=== PATIENT | female | born 1980 | race Two or more races ===

== ENCOUNTER 2025-05-16 23:43 | Day surgery (SDC) | payer BC, SELFPAY ==
[2025-05-16 23:44] VITALS: BMI 36.8
[2025-05-17] VITALS (15 sets, daily range): BP systolic 124–155; BP diastolic 70–97; PULSE 66–96; RESP 16–20; TEMP 36.2–36.8; O2SAT 94–100
--- NOTE | 2025-05-17 00:34 | XR_ITS ---
Examination: Abdomen sonogram, Limited Date and time of exam: May 17, 2025, 0048 hours INDICATIONS: Right upper abdominal pain and vomiting beginning 4 hours ago Technique: Real-time nguyen scale transabdominal sonographic images of the upper abdomen obtained. Findings: Cholelithiasis Gallbladder wall 0.40 cm Common bile duct 0.4 cm Pancreas obscured by bowel gas There are 17.6 cm no focal liver lesions. Normal hepatopedal portal venous flow Patent IVC IMPRESSION: Cholelithiasis Gallbladder wall is thickened, consider HIDA scan or MRCP follow-up to exclude cholecystitis
[2025-05-17 00:53] LABS: Basophils # (Auto) 0.1 Thou/mm3 (0.0-0.2); Basophils % (Auto) 0 % (0-2.5); Eosinophils # (Auto) 0.1 Thou/mm3 (0.0-0.5); Eosinophils % (Auto) 1 % (0-10); Hematocrit 36.8 % (36.0-46.0); Hemoglobin 13.0 g/dL (12.0-16.0); Immature Granulocytes Auto 0.07 Thou/mm3 (0.00-0.00); Lymphocytes # (Auto) 2.2 Thou/mm3 (1.0-4.8); Lymphocytes % (Auto) 16 % (10-50); Mean Corpuscular HGB Conc 35.3 g/dl (31.0-37.0); Mean Corpuscular Hemoglobin 30.8 pg (25.0-35.0); Mean Corpuscular Volume 87 fL (80-100); Monocytes # (Auto) 1.3 Thou/mm3 (0.0-0.8); Monocytes % (Auto) 9 % (0-12); Neutrophils # (Auto) 10.6 Thou/mm3 (1.8-7.7); Neutrophils % (Auto) 74 % (37-80); Nucleated Red Blood Cell # 0.00 Thou/mm3 (0.00-0.00); Nucleated Red Blood Cell % 0 /100 WBC (0); Platelet Count 299 Thou/mm3 (140-440); RDW Standard Deviation 43.3 fL (36.4-46.3); Red Blood Count 4.22 Miln/mm3 (4.00-5.20); White Blood Count 14.4 Thou/mm3 (3.6-11.0)
--- NOTE | 2025-05-17 00:54 | EDNOTE_ITS ---
<Statement entered by Elis Duncan MD - 05/21/25 17:34> As co-signing physician, I was present and available for consult prn. I concur with the plan and care as documented by the midlevel provider. ED Abdominal Pain RME/HPI General Chief Complaint: Abdominal Pain Stated complaint: RUQ PAIN Time seen by provider: 05/17/25 00:33 Arrival date/time: 05/16/25 23:43 44F with history of appendectomy presents to ED with several hours of RUQ pain and N/V. Limitations: no limitations Related Data Home Medications ?Medication ?Instructions ?Recorded ?Confirmed ranitidine HCl 75 mg tablet 100 mg PO PRN PRN GERD #0 tabs 04/10/15 (Zantac) Previous Rx's ?Medication ?Instructions ?Recorded Hydrocodone/Acetaminophen * (NORCO 1 tab PO Q6H PRN AB DOMINAL PAIN 04/14/15 7.5/325 *) #40 tabs hydrocodone 5 mg-acetaminophen 325 1 tab PO Q6H #20 ta bs 05/17/25 mg tablet Allergies Allergy/AdvReac Type Severity Reaction Status Date / Time NKA Allergy Unknown Uncoded 05/16/25 23:50 Review of Systems Review of Systems Systems Reviewed: All systems reviewed, normal except as documented Constitutional Constitutional: Reports system reviewed and no additional complaints, except as documented, Denies fever(s) and Denies headache(s) ENT Ears, Nose, Mouth, and Throat: Denies disequilibrium and Denies headache(s) Cardiovascular Cardiovascular: Reports system reviewed and no additional complaints, except as documented, Denies chest pain and Denies dyspnea Respiratory Respiratory: Reports system reviewed and no additional complaints, except as documented, Denies cough and Denies dyspnea Gastrointestinal Gastrointestinal: Reports system reviewed and no additional complaints, except as documented, Reports as per HPI, Reports abdominal pain, Reports nausea and Reports vomiting Neurologic Neurologic: Reports system reviewed and no additional complaints, except as documented, Denies confusion, Denies disequilibrium and Denies headache(s) Psychiatric Psychiatric: Denies confusion Past Medical History Social History SMOKING STATUS: Never smoker ED Exam General Limitations: Present no limitations General appearance: Present alert and in no apparent distress Head Head exam: Present atraumatic Eye Eye exam: Present normal appearance, PERRL and EOMI ENT ENT exam: Present normal exam, normal oropharynx and mucous membranes moist Neck Neck exam: Present normal inspection, full ROM and trachea midline Chest Chest inspection: Present normal inspection and symmetric chest wall rise Respiratory Respiratory exam: Present normal lung sounds bilaterally Cardiovascular Cardiovascular exam: Present regular rate, normal rhythm and normal heart sounds Abdominal Exam Abdominal exam: Present soft and normal bowel sounds Abdominal tenderness: Present RUQ Extremities Exam Extremities exam: Present normal inspection and full ROM Back Exam Back exam: Present normal inspection and full ROM Neurological Exam Neurological exam: Present alert, oriented X3 and CN II-XII intact Psychiatric Psychiatric exam: Present normal affect and normal mood Skin Skin exam: Present warm, dry, intact and normal color Course Quality Measures none Orders Category Date Time Status Patient Condition Routine Admission 05/17/25 07:[address] in Observation Status Routine Admission 05/17/25 07:[address] in Surgical Day Care Routine Admission 05/17/25 07:07 Active Activity as Tolerated Routine Care 05/17/25 07:07 Ordered COVID-19 Screening Questionnaire NOW Care 05/17/25 02:38 Completed DC Home When Criteria Met . Care 05/17/25 10:03 Completed Decision to Admit X1 Care 05/17/25 02:37 Completed Insert IV NOW Care 05/17/25 01:13 Completed NPO NOW Care 05/17/25 02:07 Completed Obtain Written Consent For: NOW Care 05/17/25 07:07 Completed Consult to General Surgery Stat Cons 05/17/25 02:37 Ordered Diet NPO (NOW) Diet 05/17/25 02:07 Active Discharge Routine Discharge 05/17/25 11:39 Active US gall bladder Stat Exams 05/17/25 00:34 Completed CBC Stat Lab 05/17/25 00:46 Completed CMP [Comprehensive Metabolic Panel] Stat Lab 05/17/25 00:46 Completed Drug Screen,Urine Stat Lab 05/17/25 01:00 Completed HCG Qualitative,Urine Stat Lab 05/17/25 01:00 Completed Lipase Stat Lab 05/17/25 00:46 Completed Urinalysis, C/S if Indicated Stat Lab 05/17/25 01:00 Completed Acetaminophen Ivpb [Ofirmev Inj] 100 ml Med 05/17/25 10:08 Discontinued IV .STK-MED Bupivacaine Mpf/Epi 0.5% [Sensorcaine-Mpf Inj 0.5% w/ Med 05/17/25 10:02 Discontinued Epi] 30 ml .ROUTE .STK-MED ONE Dexamethasone Inj [Decadron Inj] Med 05/17/25 10:00 Discontinued 10 mg .ROUTE .STK-MED ONE HYDROcodone*/APAP 5/325 [[place] 5/325] Med 05/17/25 00:34 Discontinued 1 tab PO X1 ONE HYDROmorphone INJ [Dilaudid Inj] Med 05/17/25 10:03 Discontinued 0.4 mg IVP Q5M PRN Ketorolac Inj [Toradol Inj] Med 05/17/25 10:00 Discontinued 30 mg .ROUTE .STK-MED ONE Midazolam Inj [Versed Inj] Med 05/17/25 10:00 Discontinued 2 mg .ROUTE .STK-MED ONE Morphine Inj Med 05/17/25 10:03 Discontinued 3 mg IVP Q5M PRN Morphine Inj Med 05/17/25 02:07 Discontinued 5 mg IVP X1 ONE Ondansetron Inj [Zofran Inj] Med 05/17/25 10:00 Discontinued 4 mg .ROUTE .STK-MED ONE Ondansetron Inj [Zofran Inj] Med 05/17/25 02:07 Discontinued 4 mg IVP X1 ONE Ondansetron Inj [Zofran Inj] Med 05/17/25 10:03 Discontinued 4 mg IVP X1 ONE Piper/Tazo 3.375 gm Premix [Zosyn] Med 05/17/25 02:37 Discontinued 3.375 gm in 50 ml IV X1 Propofol Inj [Diprivan Inj] Med 05/17/25 09:59 Discontinued 200 mg IV .STK-MED ONE Rocuronium Inj [Zemuron Inj] Med 05/17/25 10:55 Discontinued 100 mg .ROUTE .STK-MED ONE Sevoflurane [Ultane] Med 05/17/25 10:21 Discontinued 15 min INH .STK-MED ONE Sodium Chloride 0.9% 1000 ml [Ns] 1,000 ml Med 05/17/25 07:15 Discontinued IV 100 mls/hr Sodium Chloride 0.9% 1000 ml [Ns] 1,000 ml Med 05/17/25 01:14 Discontinued IV 250 mls/hr Sugammadex Inj [Bridion Inj] Med 05/17/25 10:00 Discontinued 200 mg .ROUTE .STK-MED ONE fentaNYL INJ [Sublimaze Inj] Med 05/17/25 10:00 Discontinued 100 mcg .ROUTE .STK-MED ONE fentaNYL INJ [Sublimaze Inj] Med 05/17/25 10:03 Discontinued 25 mcg IVP Q5M PRN Code Status Routine Oth 05/17/25 07:07 Completed Oxygen Delivery PRN RT 05/17/25 10:03 Completed Vital Signs Vital signs: Vital Signs Temperature 98.2 F 05/17/25 00:06 Pulse Rate 90 05/17/25 00:06 Respiratory Rate 20 05/17/25 00:06 Blood Pressure 144/92 H 05/17/25 00:06 Pulse Oximetry (%) 98 05/17/25 00:06 Oxygen Delivery Method Room Air 05/17/25 00:06 O2 at 98% on RA and WNLs Abdominal Pain MDM MDM Narrative MDM Narrative:: 44F with history of appendectomy presents to ED with several hours of RUQ pain and N/V. Physical exam reveals RUQ tenderness. Patient is afebrile, alert, but appears to be in pain. US likely cholecystitits given wall edema, gallstones, and GB distention. LFTs mildly elevated. Moderate leukocytosis. Marijuana+. Spoke to Dr. Wood who will evaluate patient in AM. Patient eventually admitted for surgery and discharged same day. Patient data External records reviewed:: None Clinical information provided by:: patient Social determinants that could affect healthcare access:: none Patient has the following chronic illnesses:: none How is presenting disease/condition affected by chronic disease/condition?: no chronic disease Evaluation data The following diagnostics were reviewed and interpreted by me:: lab results and radiology exam(s) Lab and/or radiology exams considered but not ordered:: ordered Interpretation Summary: above Medications / Prescriptions Medications or Prescriptions considered but not ordered:: ordered Medication administrations:: Medication Administration History Discontinued Medications Hydrocodone Bitart/Acetaminophen (Hydrocodone/Apap 5/325 Tablet) 1 tab PO X1 ONE Stop: 05/17/25 00:35 Last Admin: 05/17/25 01:00 Dose: 1 tab Documented By: EE Bupivacaine HCl/Epinephrine Bitart (Bupivacaine Mpf/Epi 0.5% 30 Ml Vial 1:200,000) Confirm Administered Dose 30 ml .ROUTE .STK-MED ONE Stop: 05/17/25 10:03 Dexamethasone Sodium Phosphate (Dexamethasone Sod Phos Inj 10 Mg/Ml Vial) Confirm Administered Dose 10 mg .ROUTE .STK-MED ONE Stop: 05/17/25 10:01 Fentanyl Citrate (Fentanyl Cit Inj 50 Mcg/Ml Amp 2ml) 25 mcg IVP Q5M PRN PRN Reason: PAIN SCALE 1-3 (mild Stop: 05/17/25 12:03 Fentanyl Citrate (Fentanyl Cit Inj 50 Mcg/Ml Amp 2ml) Confirm Administered Dose 100 mcg .ROUTE .STK-MED ONE Stop: 05/17/25 10:01 Hydromorphone HCl (Hydromorphone Inj 2 Mg/Ml Vial) 0.4 mg IVP Q5M PRN PRN Reason: PAIN SCALE 7-10 (Severe Stop: 05/17/25 12:03 Last Admin: 05/17/25 12:13 Dose: 0.4 mg Documented By: DI Sodium Chloride (Ns) 1,000 mls @ 250 mls/hr IV .Q4H ONE Stop: 05/17/25 05:13 Last Infusion: 05/17/25 07:00 Dose: Infused Documented By: Admin: 05/17/25 02:16 Dose: 250 mls/hr Documented By: JESS Piperacillin/Tazobactam/Dextrose (Zosyn) 3.375 gm in 50 mls @ 100 mls/hr IV X1 ONE Stop: 05/17/25 03:06 Last Infusion: 05/17/25 04:18 Dose: Infused Documented By: Admin: 05/17/25 03:35 Dose: 100 mls/hr Documented By: CB Sodium Chloride (Ns) 1,000 mls @ 100 mls/hr IV .Q10H VICTOR HUGO Stop: 06/16/25 07:14 Last Admin: 05/17/25 07:55 Dose: 100 mls/hr Documented By: LACIE Acetaminophen (Ofirmev Inj) Confirm Administered Dose 100 mls @ ud IV .STK-MED ONE Stop: 05/17/25 10:09 Ketorolac Tromethamine (Ketorolac Inj 30 Mg/Ml Vial) Confirm Administered Dose 30 mg .ROUTE .STK-MED ONE Stop: 05/17/25 10:01 Midazolam HCl (Midazolam Inj 1 Mg/Ml Vial 2 Ml) Confirm Administered Dose 2 mg .ROUTE .STK-MED ONE Stop: 05/17/25 10:01 Morphine Sulfate (Morphine Sulf Inj 10 Mg/Ml Vial) 5 mg IVP X1 ONE Stop: 05/17/25 02:08 Last Admin: 05/17/25 02:16 Dose: 5 mg Documented By: EE Morphine Sulfate (Morphine Sulf Inj 10 Mg/Ml Vial) 3 mg IVP Q5M PRN PRN Reason: PAIN SCALE 4-6 (Moderate Stop: 05/17/25 12:03 Ondansetron HCl (Ondansetron Inj 2 Mg/Ml Inj 2 Ml) 4 mg IVP X1 ONE; Protocol Stop: 05/17/25 02:08 Last Admin: 05/17/25 02:16 Dose: 4 mg Documented By: EE Ondansetron HCl (Ondansetron Inj 2 Mg/Ml Inj 2 Ml) 4 mg IVP X1 ONE Stop: 05/17/25 10:04 Ondansetron HCl (Ondansetron Inj 2 Mg/Ml Inj 2 Ml) Confirm Administered Dose 4 mg .ROUTE .STK-MED ONE Stop: 05/17/25 10:01 Propofol (Propofol Inj 10 Mg/Ml Vial 20 Ml) Confirm Administered Dose 200 mg IV .STK-MED ONE Stop: 05/17/25 10:00 Rocuronium [place] (Rocuronium Inj 10 Mg/Ml Vial 10 Ml) Confirm Administered Dose 100 mg .ROUTE .STK-MED ONE Stop: 05/17/25 10:56 Sevoflurane (Sevoflurane 15 Min/Unit Ea) Confirm Administered Dose 15 min INH .STK-MED ONE Stop: 05/17/25 10:22 Sugammadex Sodium (Sugammadex Inj 100 Mg/Ml 2ml Vial) Confirm Administered Dose 200 mg .ROUTE .STK-MED ONE Stop: 05/17/25 10:01 above Consultations Consultation(s) initiated? (list below): Yes Diagnosis Differential diagnosis abdominal pain: abdominal pain, acute appendicitis, calculus of kidney, constipation, diverticulitis, endometriosis, gastroenteritis, pancreatitis, small bowel obstruction and other (biliary disease, cholecystitis) Most likely diagnosis given after review of the tests above:: cholecystitis Admission Indicated Admission indicated?: indicated Admission Request Was there a request for admission?: Yes Admission Attestation Admission request attestation: Discussed case with [Dr. Wood] from General Surgery service regarding admission. Discussed patients ED course, exam findings, labs, and radiology results. The Surgeon [agrees] to accept the patient for admission. Disposition Plan Disposition Plan: Admit Discharge Plan Plan Patient Disposition: Other Care w/in Hosp ([facility]) Problem List Clinical Impression: Acute cholecystitis
[2025-05-17] MEDS: HYDROcodone/APAP 5/325 TABLET 1 TAB PO (01:00)
[2025-05-17 01:01] LABS: Collection Type, Urine Clean Catch
[2025-05-17 01:07] LABS: Amorphous Crystals,Urine Present (Absent); Bacteria,Urine Rare; Bilirubin,Urine Negative (Negative); Blood,Urine Trace (Negative); Clarity,Urine Turbid (Clear/Hazy); Color,Urine Yellow (Lt Yel-Yel); Culture Indicated,Urine Not Indicated; Glucose, Urine Negative (Negative); Ketones,Urine 1+ (Negative); Leukocyte Esterase,Urine Negative (Negative); Nitrite,Urine Negative (Negative); PH,Urine 8.5 (5.0-7.0); Protein,Urine Negative (Neg - Trace); RBC,Urine 9 /hpf (0-3); Specific Gravity,Urine 1.022 (1.001-1.035); Squamous Epithelial Cell,Urine 12 /hpf (0-5); Urobilinogen,Urine Negative mg/dL (0.0-1.0); WBC,Urine 1 /hpf (0-5)
[2025-05-17 01:08] LABS: HCG Qualitative,Urine Negative
[2025-05-17 01:12] LABS: Alanine Aminotransferase 86 U/L (10-49); Albumin, Serum 4.4 gm/dL (3.5-5.0); Albumin/Globulin Ratio 1.6 (1.2-2.2); Alkaline Phosphatase 77 U/L (46-116); Anion Gap 10 (7-16); Aspartate Amino Transferase 101 U/L (0-34); BUN/Creatinine Ratio 12 Ratio (12-20); Bilirubin,Total 0.6 mg/dL (0.3-1.2); Blood Urea Nitrogen 11 mg/dL (9-23); Calcium 9.4 mg/dL (8.3-10.6); Calcium (Corrected) 9.4 mg/dL (8.5-10.1); Carbon Dioxide 26.3 mMol/L (20.0-31.0); Chloride 107 mMol/L (98-107); Creatinine (Component) 0.9 mg/dL (0.6-1.3); Estimated Creatinine Clearance 80.7 mL/min (>60); Globulin 2.7 gm/dL (2.3-3.5); Glucose 147 mg/dL (74-106); Lipase 47 U/L (12-53); Osmolality,Calculated 287 (275-295); Potassium 4.4 mMol/L (3.4-5.1); Sodium 143 mMol/L (136-145); Total Protein 7.1 gm/dL (5.7-8.2); eGFR > 60 See Note
[2025-05-17 01:13] LABS: Amphetamine/Methamp Scrn,U Negative (Negative); Barbiturate Screen,Urine Negative (Negative); Benzodiazepines Screen,Urine Negative (Negative); Benzoylecgonine Screen, Ur Negative (Negative); Fentanyl Screen,Urine Negative (Negative); Opiate Screen,Urine Negative (Negative); THC Screen,Urine Positive (Negative)
[2025-05-17] MEDS: MORPHINE SULF INJ 10 MG/ML VIAL 5 MG IVP (02:16)
[2025-05-17] MEDS: SODIUM CHLORIDE 0.9% 1000 ML 1,000 ML 250 ML IV (02:16)
[2025-05-17] MEDS: ONDANSETRON INJ 2 MG/ML INJ 2 ML 4 MG IVP (02:16)
--- NOTE | 2025-05-17 02:32 | PRELIM_ITS ---
Gallbladder ultrasound. May 17, 2025 at 0048 hours Clinical history: Right upper quadrant pain x4 hours. Comparison: No prior study is available for comparison. Findings: The liver is enlarged measuring 17.6 cm and is normal in echogenicity without mass or ductal dilatation. The main portal vein is patent and demonstrates hepatopetal flow. The gallbladder is distended, measuring 12 cm. Echogenic foci are seen in the gallbladder. The gallbladder wall is thickened, measuring 4 mm. No pericholecystic fluid is demonstrated. The common duct is normal in caliber at 4 mm. The pancreas is obscured by bowel gas. The inferior vena cava is patent. Impression: 1. Distended gallbladder with cholelithiasis and gallbladder wall thickening, suggestive of acute calculous cholecystitis. Recommend clinical correlation. 2. No biliary obstruction. 3. Hepatomegaly. Report Electronically Signed By: Rubens Escobar 05/17/2025 2:31:38 AM [EST]
[2025-05-17] MEDS: PIPER/TAZO 3.375 GM PREMIX 3.375 GM/50 ML BAG IV (03:35)
--- NOTE | 2025-05-17 07:12 | ESHP_ITS ---
HPI Date of Admission 05/17/2025 Chief Complaint Chief Complaint: Patient is admitted with complaints of acute cholecystitis with cholelithiasis HPI History of present illness revealed that the patient developed severe pain in the middle of the night and came to the emergency room. Pain was located in the upper quadrant of the abdomen and going on to the right side. Patient had no vomiting. She had a similar episode 3 weeks ago when she was on a cruise in [place] when she got sick associated with vomiting and upper abdominal pain she is describing this pain is the same. Patient denies having had any gallstones until last night. She had a grilled seed sandwich at work and got sick around 930. He came to the emergency room and was found to have acute cholecystitis. Her past surgery consisted of appendectomy Review of Systems Constitutional Constitutional: Denies headache(s) ENT Ears, Nose, Mouth, and Throat: Denies disequilibrium and Denies headache(s) Neurologic Neurologic: Reports system reviewed and no additional complaints, except as documented, Denies confusion, Denies disequilibrium and Denies headache(s) Psychiatric Psychiatric: Denies confusion Meds Home Medications and Allergies Home Medications ?Medication ?Instructions ?Recorded ?Confirmed ?Type ranitidine HCl 75 mg tablet 100 mg PO PRN PRN GERD #0 tabs 04/10/15 History (Zantac) Allergies Allergy/AdvReac Type Severity Reaction Status Date / Time NKA Allergy Unknown Uncoded 05/16/25 23:50 Exam Vital Signs Temp Pulse Resp BP Pulse Ox O2 Del Method 98.2 F 85 19 127/74 94 L Room Air 05/17/25 05:00 05/17/25 05:00 05/17/25 05:00 05/17/25 05:00 05/17/25 05:00 05/17/25 05:00 Narrative Exam Physical examination revealed slightly obese female who is 5 foot 1 inch tall weighing 195 pounds with BMI of 36.8 Constitutional Constitutional: moderate distress Routine Abdominal Exam Comments: Examination abdomen showed definite tenderness over the right upper quadrant with a positive Rubio sign Routine Rectal Exam Comments: Deferred Routine Exam Comments: Deferred Routine Extremities Exam Comments: Within normal limits Results Results: Laboratory Laboratory Narrative: Laboratory results show leukocytosis of 14,000. Liver enzymes show mild elevation bilirubin is within normal limits Results: Imaging Imaging narrative: Ultrasound of the abdomen showed cholelithiasis with cholecystitis Assessment & Plan Additional Assessment Additional comments: Impression: Acute cholecystitis with cholelithiasis Obesity Plan Plan: Since the patient has had 2 episodes of pain in the past 3 weeks I think she is passing a stone to the common bile duct even though the liver enzymes are not that elevated. It is prudent to go and get the gallbladder now because she has a leukocytosis and has persistent pain despite morphine. I have therefore scheduled her for laparoscopic cholecystectomy. I also told her that she will require open cholecystectomy in case the laparoscopic approach fails she is agreeable. I told her the biggest risk of lap shemar is injury to the common bile duct which may require further surgery by open method in a different hospital. Quality Measures Quality Measures none
--- NOTE | 2025-05-17 07:22 | PC.NURSE ---
Received report from ANUJ Anne on this patient. Dr. Will at bedside explained need for cholecystectomy surgery today. No further questions from patient. Consent obtained. Plan of care ongoing. Vitals stable. Patient denies abdominal pain or nausea at this time
[2025-05-17] MEDS: SODIUM CHLORIDE 0.9% 1000 ML 1,000 ML 100 ML IV (07:55)
--- NOTE | 2025-05-17 07:57 | PC.CC ---
Patient is a 44 year-old female who presents to the hospital for acute cholecystitis. Isabel WASHINGTON made [id number] contact with patient. ASW introduced self, role, and reason for visit.?Patient appeared alert and oriented to self, location, and situation.?Patient was pleasant and engaged in initial assessment. Patient confirmed information on demographics and reports to living at home with her 14 year-old son. Patient reports her medical decision maker in the event she is unable to make her own medical decisions would be her mother, Hawa Rosenthal . 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. Patient is able to ambulate independently and complete her own ADLs. The patient does not require any DME and reports no medical concerns. Patient's primary provider is Aaron Krishna and pharmacy of choice is [facility]. Upon discharge patient plans to return back home. director dental services to follow up with any discharge needs.
--- NOTE | 2025-05-17 08:44 | PC.NURSE ---
Report given to ANUJ Cueva in surgery. No further questions.
--- NOTE | 2025-05-17 11:26 | SUR.PHASEI ---
pt received from OR in recovery bay 4. pt asleep but responds to voice, breathing unlabored on oxymask 6l. v/s stable. pt dressing to abd x4 cdi. report received from Dr. Domingo and Pooja LESLIE.
[2025-05-17] MEDS: HYDROmorphone INJ 2 MG/ML VIAL 0.4 MG IVP (12:13)
--- NOTE | 2025-05-17 12:23 | SUR.PHASEII ---
[place] eyes closed, breathing unlabored, dressing to abdomen clean, dry, and intact, report from Yasmany LESLIE
--- NOTE | 2025-05-17 12:40 | SUR.PHASEII ---
pt tolerating oral fluids without difficulty swallowing or n/v
--- NOTE | 2025-05-17 12:57 | SUR.PHASEII ---
report to Yasmany LESLIE
--- NOTE | 2025-05-17 12:57 | SUR.PHASEII ---
pt able to dress self and ambulate to wheelchair with steady gait
--- NOTE | 2025-05-17 13:05 | SUR.PHASEII ---
pt awake and alert, breathing unlabored on room air. v/s stable. pt dressing to abd x4 cdi. pt able to ambulate to wheelchair with steady gait. d/c instructions given with mother in room, all questions answered. pt d/c via wheelchair with all belongings.
--- NOTE | 2025-06-08 15:57 | ESOP_ITS ---
Date of Procedure 05/17/25 Pre Op Diagnosis Acute cholecystitis with cholelithiasis Post Op Diagnosis Same Procedure Laparoscopic cholecystectomy Findings Patient was found to have an inflammation of the gallbladder which was shown 7 swelling and edema around the gallbladder Procedure Description After endotracheal anesthesia was given the patient was placed in supine position and the abdomen was prepped with chloroprep solution and draped in a sterile manner. After time out was performed I injected a few cc of of half percent Marcaine with epinephrine below the umbilicus and I made an incision for about 3 cm in length. The fascia was cleaned and Veress needle was inserted to create a pneumoperitoneum up to 15 mmHg. Then introduced a 12 mm trocar and a 10 mm camera through the fascia and I inspected the intra-abdominal organs as well as the gallbladder and the liver. Another 5 mm trocar was inserted in the epigastric region under direct vision after injecting some local anesthesia. The gallbladder was found to be distended and slightly inflamed and is associated with edema of the gallbladder wall due to acute cholecystitis. At this time the patient was kept in reverse Trendelenburg position with the left lateral tilt. The third 5 mm trocar was inserted over the mid axillary line under direct vision and a Jose Cruz and Sangeetha grasper was used to hold the fundus of the gallbladder. The retraction was carried out by the real estate administrative assistant moving the fundus of the gallbladder towards the right shoulder of the patient to create enough traction. I placed a another 5 mm trocar in the midaxillary line just lateral to the rectus muscle under direct vision. I used a fenestrated grasper to retract the neck of the gallbladder laterally towards the patient's right hip. The Calot's triangle was exposed and I achieved the critical view of safety as follows: I dissected out the fatty tissue from the hepatocystic triangle and cleared this area. I also dissected inferior and posterior to the gallbladder to identify the cystic duct and the gallbladder wall. Then superiorly I dissected along the cystic plate up to lower one third third of the gallbladder to lift the gallbladder from the liver. At this time I confirmed that only 2 structures entering the gallbladder were cystic artery and the cystic duct. The common duct was seen distally but no dissection was carried out around the duct. I did not see any need for operative cholangiogram in this patient. The cystic duct was clipped doubly and then divided and cystic artery was similarly dealt with. Then the gallbladder was removed from the liver bed using Harmonic jaren to control the small blood vessels as the dissection proceeded. Then the gallbladder was from the liver bed completely and delivered through the umbilical port using an Endopouch. The liver bed was coagulated with cautery to obtain satisfactory hemostasis. The trocars were p ulled out from the abdominal cavity and the fascia at the umbilical incision was closed with interrupted 0 Ethibond. Subcutaneous tissues was closed with 3-0 chromic and injected a few cc of half percent Marcaine with epinephrine and the skin was closed with interrupted 4-0 nylon stitches at all the trocar sites. Dressing was applied with 2 x 2 and Tegaderm. Patient tolerated the procedure well and returned to recovery room in stable condition. This operative report was missed somehow at the time of the surgery and therefore redictated on 06/08/2025. The accuracy of the operative report may not be very correct due to the delay. Anesthesia GETA Pathology / specimen Other (The gallbladder and the stone) Estimated Blood Loss 50 Surgeon Aren Wood MD Surgical Staff Operation Date: 05/17/25 10:00 Case Staff Anesthesiologist: Rakesh Domingo RN First Assistant: Rosy Melvin
== END 2025-05-17 13:05 | disposition home or self-care (01) ==
LOC: SERX 05-17 05:54 → S2EX 05-17 07:20
PROVIDERS: Physician Assistant; Emergency Provider Emergency Medicine; PCP Internal Medicine; Referring Provider Surgery; Visit Provider Surgery
PROC: 0FT44ZZ Resection of Gallbladder, Percutaneous Endoscopic Approach (ICD-10-PCS; CPT 47562; principal; 2025-05-17 09:45)
DX: K80.12 Calculus of gallbladder with acute and chronic cholecystitis without obstruction (principal); Z68.36 Body mass index [BMI] 36.0-36.9, adult; E66.9 Obesity, unspecified
CPT/HCPCS: 47562; 36415; 76705; 80053; 80307; 81001; 81025; 83690; 85025; 96361; 96365; 96375; 99284; A4217; A4649; J0131; J1100; J1171; J1885; J2250; J2270; J2405; J2543; J2704; J3010; J3490; J7030; A9270

== ENCOUNTER 2025-05-17 21:08 | Inpatient (IN) | payer BC, SELFPAY ==
[2025-05-17 21:09] VITALS: BMI 37.0
[2025-05-17 21:48] VITALS: BP 145/93; PULSE 71; RESP 26; TEMP 36.4; O2SAT 100
[2025-05-17 22:14] VITALS: BP 145/93; PULSE 77; RESP 20; TEMP 36.7; O2SAT 100
[2025-05-17] MEDS: ONDANSETRON INJ 2 MG/ML INJ 2 ML 4 MG IV (22:15)
[2025-05-17] MEDS: DEXAMETHASONE SOD PHOS INJ 10 MG/ML VIAL IVP (22:15)
[2025-05-17] MEDS: MORPHINE SULF INJ 10 MG/ML VIAL 5 MG IVP (22:16)
--- NOTE | 2025-05-17 23:19 | XR_ITS ---
Examination: CT abdomen with intravenous contrast CT pelvis with intravenous contrast 2-D coronal reconstructions 2-D sagittal reconstructions Date and time of exam:May 17, 2025 at 1145 hours Comparison March 25, 2015 INDICATIONS: Abdominal pain and epigastric pain today. CTDI: vol (mGy) 10.8 DLP: (mGycm) 589 Technique: Multiple axial sections of the abdomen and pelvis have been obtained. 64 slice high-resolution scanner used. 3 mm axial sections have been obtained, post intravenous injection 60 cc [id number] 2-D sagittal, coronal reconstructions obtained. Low dose protocols were performed. One or more of the following dose reduction techniques were used; automated exposure control, adjustment of the mA and/or KV according to patient size, use of iterative reconstruction technique. Findings: No focal liver lesions Absent gallbladder Acute pancreatitis edema surrounding the pancreas No renal or ureteral calculi, no hydronephrosis No pericecal inflammatory change Anteverted uterus Intact urinary bladder The osseous structures are intact IMPRESSION: Acute pancreatitis, no pseudocyst
[2025-05-17 23:25] VITALS: BP 143/83; PULSE 84; RESP 20; TEMP 36.9; O2SAT 99
[2025-05-17 23:32] LABS: Basophils # (Auto) 0.0 Thou/mm3 (0.0-0.2); Basophils % (Auto) 0 % (0-2.5); Eosinophils # (Auto) 0.0 Thou/mm3 (0.0-0.5); Eosinophils % (Auto) 0 % (0-10); Hematocrit 38.8 % (36.0-46.0); Hemoglobin 13.2 g/dL (12.0-16.0); Immature Granulocytes Auto 0.09 Thou/mm3 (0.00-0.00); Lymphocytes # (Auto) 0.7 Thou/mm3 (1.0-4.8); Lymphocytes % (Auto) 4 % (10-50); Mean Corpuscular HGB Conc 34.0 g/dl (31.0-37.0); Mean Corpuscular Hemoglobin 30.7 pg (25.0-35.0); Mean Corpuscular Volume 90 fL (80-100); Monocytes # (Auto) 1.0 Thou/mm3 (0.0-0.8); Monocytes % (Auto) 5 % (0-12); Neutrophils # (Auto) 19.5 Thou/mm3 (1.8-7.7); Neutrophils % (Auto) 91 % (37-80); Nucleated Red Blood Cell # 0.00 Thou/mm3 (0.00-0.00); Nucleated Red Blood Cell % 0 /100 WBC (0); Platelet Count 293 Thou/mm3 (140-440); RDW Standard Deviation 46.2 fL (36.4-46.3); Red Blood Count 4.30 Miln/mm3 (4.00-5.20); White Blood Count 21.4 Thou/mm3 (3.6-11.0)
[2025-05-17 23:57] LABS: Alanine Aminotransferase 684 U/L (10-49); Albumin, Serum 4.4 gm/dL (3.5-5.0); Albumin/Globulin Ratio 1.6 (1.2-2.2); Alkaline Phosphatase 117 U/L (46-116); Anion Gap 12 (7-16); Aspartate Amino Transferase 473 U/L (0-34); BUN/Creatinine Ratio 13 Ratio (12-20); Bilirubin,Total 3.0 mg/dL (0.3-1.2); Blood Urea Nitrogen 9 mg/dL (9-23); Calcium 9.1 mg/dL (8.3-10.6); Calcium (Corrected) 9.1 mg/dL (8.5-10.1); Carbon Dioxide 19.8 mMol/L (20.0-31.0); Chloride 106 mMol/L (98-107); Creatinine (Component) 0.7 mg/dL (0.6-1.3); Estimated Creatinine Clearance 104.0 mL/min (>60); Globulin 2.7 gm/dL (2.3-3.5); Glucose 182 mg/dL (74-106); Osmolality,Calculated 279 (275-295); Potassium 3.7 mMol/L (3.4-5.1); Sodium 138 mMol/L (136-145); Total Protein 7.1 gm/dL (5.7-8.2); eGFR > 60 See Note
[2025-05-18] VITALS (22 sets, daily range): BP systolic 112–194; BP diastolic 65–108; PULSE 67–136; RESP 13–29; TEMP 36.6–37.7; O2SAT 95–100; BMI 38.2
--- NOTE | 2025-05-18 | XR_ITS ---
MRI abdomen, without contrast. MRCP Date and time of exam: May 18, 2025 1117 hours INDICATIONS: Status post cholecystectomy with elevated bilirubin and lipase on laboratory examination today, cholecystectomy May 17, 2025 Technique: Multiple axial and coronal images of the abdomen have been obtained with the Siemens 1.5T MRI scanner. Images obtained included T1 weighted transverse images, T2-weighted transverse images, T2-weighted transverse images fat-suppressed, T2 weighted haste fat suppressed transverse images, T1 weighted images, in and out of phase images, T2-weighted coronal images, breath hold, T2 weighted haze coronal images as well as T2 weighted coronal thick slab images, MRCP. Findings: No focal liver lesions Mild free fluid in the abdomen, including significant free fluid surrounding the pancreas Postop mild fluid in the gallbladder fossa Common hepatic common bile ducts are not enlarged no stones Spleen is not enlarged No hydronephrosis IMPRESSION: Mild postop free fluid in the abdomen including surrounding the pancreas Negative for common hepatic or common bile duct stones
[2025-05-18] MEDS: fentaNYL CIT INJ 50 mCg/ML AMP 2ML 100 MCG IVP (00:13)
[2025-05-18] MEDS: RINGERS LACTATED 1000 ML 1,000 ML 500 ML IV (00:22)
[2025-05-18 01:26] LABS: Lipase 2117 U/L (12-53)
--- NOTE | 2025-05-18 01:39 | EDNOTE_ITS ---
ED Abdominal Pain RME/HPI General Chief Complaint: Abdominal Pain Stated complaint: ABD SURGERY TODAY/PAIN Time seen by provider: 05/17/25 21:18 Arrival date/time: 05/17/25 21:08 44F with history of cholecystectomy today presents to ED with RUQ/epigastric pain and N/V. Patient states she was discharged with [place], but pharmacy wouldn't fill it. Limitations: no limitations Related Data Home Medications ?Medication ?Instructions ?Recorded ?Confirmed ranitidine HCl 75 mg tablet 100 mg PO PRN PRN GERD #0 tabs 04/10/15 (Zantac) Previous Rx's ?Medication ?Instructions ?Recorded Hydrocodone/Acetaminophen * (NORCO 1 tab PO Q6H PRN AB DOMINAL PAIN 04/14/15 7.5/325 *) #40 tabs hydrocodone 5 mg-acetaminophen 325 1 tab PO Q6H #20 ta bs 05/17/25 mg tablet Allergies Allergy/AdvReac Type Severity Reaction Status Date / Time NKA Allergy Unknown Uncoded 05/16/25 23:50 Review of Systems Review of Systems Systems Reviewed: All systems reviewed, normal except as documented Constitutional Constitutional: Reports system reviewed and no additional complaints, except as documented, Denies fever(s) and Denies headache(s) ENT Ears, Nose, Mouth, and Throat: Denies disequilibrium and Denies headache(s) Cardiovascular Cardiovascular: Reports system reviewed and no additional complaints, except as documented, Denies chest pain and Denies dyspnea Respiratory Respiratory: Reports system reviewed and no additional complaints, except as documented, Denies cough and Denies dyspnea Gastrointestinal Gastrointestinal: Reports system reviewed and no additional complaints, except as documented, Reports as per HPI, Reports abdominal pain, Reports nausea and Reports vomiting Neurologic Neurologic: Reports system reviewed and no additional complaints, except as documented, Denies confusion, Denies disequilibrium and Denies headache(s) Psychiatric Psychiatric: Denies confusion Past Medical History Past Medical History NEUROLOGIC: Negative Seizures CARDIAC: Negative Cardiac Disorders or Congestive Heart Failure RESPIRATORY: Negative Chronic Obstructive Pulmonary Disease (COPD) or Asthma GENITOURINARY: Negative Renal Disease ENDOCRINE: Negative Diabetes Mellitus Type 1 or Diabetes Mellitus Type 2 HEMATOLOGIC: Negative Sickle Cell Disease OTHER HISTORY: Negative Blood Transfusions, Blood Transfusion Reaction (n/a) or Anesthesia Reactions Social History SMOKING STATUS: Current every day smoker ED Exam General Limitations: Present no limitations General appearance: Present alert and in no apparent distress Head Head exam: Present atraumatic Eye Eye exam: Present normal appearance, PERRL and EOMI ENT ENT exam: Present normal exam, normal oropharynx and mucous membranes moist Neck Neck exam: Present normal inspection, full ROM and trachea midline Chest Chest inspection: Present normal inspection and symmetric chest wall rise Respiratory Respiratory exam: Present normal lung sounds bilaterally Cardiovascular Cardiovascular exam: Present regular rate, normal rhythm and normal heart sounds Abdominal Exam Abdominal exam: Present soft and normal bowel sounds Abdominal tenderness: Present RUQ and epigastrium Extremities Exam Extremities exam: Present normal inspection and full ROM Back Exam Back exam: Present normal inspection and full ROM Neurological Exam Neurological exam: Present alert, oriented X3 and CN II-XII intact Psychiatric Psychiatric exam: Present normal affect and normal mood Skin Skin exam: Present warm, dry, intact and normal color Course Quality Measures none Orders Category Date Time Status CT Screening NOW Care 05/17/25 23:20 Active Insert IV NOW Care 05/17/25 22:04 Active MRI Screening NOW Care 05/18/25 00:10 Active Miscellaneous Nursing Order NOW Care 05/18/25 12:[address] abdomen pelvis w con Stat Exams 05/17/25 23:19 Completed MR MRCP Stat Exams 05/18/25 Completed NM HIDA w pharm Stat Exams 05/18/25 13:47 Completed Blood Culture (Lab) Stat Lab 05/18/25 03:30 Received C-Reactive Protein Stat Lab 05/18/25 12:56 Completed CBC Stat Lab 05/17/25 23:25 Completed CMP [Comprehensive Metabolic Panel] Stat Lab 05/17/25 23:25 Completed CMP [Comprehensive Metabolic Panel] Stat Lab 05/18/25 03:30 Completed CMP [Comprehensive Metabolic Panel] Stat Lab 05/18/25 12:56 Completed Lactate (Lactic Acid) Stat Lab 05/18/25 03:30 Completed Lipase Stat Lab 05/17/25 23:25 Completed Lipase Stat Lab 05/18/25 12:56 Completed Lipid Panel Stat Lab 05/18/25 18:42 Ordered PT [Prothrombin Time with INR] Stat Lab 05/18/25 12:56 Completed PTT [Partial Thromboplastin Time] Stat Lab 05/18/25 12:56 Completed Procalcitonin Stat Lab 05/18/25 03:30 Completed Dexamethasone Inj [Decadron Inj] Med 05/17/25 22:04 Discontinued 10 mg IVP X1 ONE Diazepam Inj [Valium Inj] Med 05/18/25 03:08 Discontinued 5 mg IVP X1 ONE HYDROmorphone INJ [Dilaudid Inj] Med 05/18/25 03:08 Active 0.5 mg IVP Q3H PRN HYDROmorphone INJ [Dilaudid Inj] Med 05/18/25 10:02 Discontinued 1 mg IVP NOW ONE Ketamine Inj Med 05/18/25 12:52 Discontinued 9 mg IVP NOW ONE Ketorolac Inj [Toradol Inj] Med 05/18/25 02:02 Discontinued 30 mg IVP X1 ONE LORazepam [Ativan] Med 05/18/25 10:19 Discontinued 1 mg PO X1 ONE Melatonin Med 05/18/25 21:00 Discontinued 3 mg PO HS Morphine Inj Med 05/17/25 22:04 Discontinued 5 mg IVP X1 ONE Ondansetron Inj [Zofran Inj] Med 05/18/25 02:44 Active 4 mg IV Q4HR PRN Ondansetron Inj [Zofran Inj] Med 05/17/25 22:04 Discontinued 4 mg IV X1 ONE Piper/Tazo 3.375 gm Premix [Zosyn] Med 05/18/25 18:24 Active 3.375 gm in 50 ml IV Q6HR Piper/Tazo 3.375 gm Premix [Zosyn] Med 05/18/25 03:09 Discontinued 3.375 gm in 50 ml IV X1 Ringers Lactated 1000 ml [Lactated Ringers] 1,000 ml Med 05/18/25 03:11 Discontinued IV 125 mls/hr Ringers Lactated 1000 ml [Lactated Ringers] 1,000 ml Med 05/18/25 18:30 Active IV 150 mls/hr Ringers Lactated 1000 ml [Lactated Ringers] 1,000 ml Med 05/18/25 00:10 Discontinued IV 500 mls/hr Ringers Lactated 1000 ml [Lactated Ringers] 1,000 ml Med 05/18/25 18:23 Active IV 999 mls/hr fentaNYL INJ [Sublimaze Inj] Med 05/18/25 00:02 Discontinued 100 mcg IVP X1 ONE Vital Signs Vital signs: Vital Signs Temperature 97.6 F 05/17/25 21:48 Pulse Rate 71 05/17/25 21:48 Respiratory Rate 26 H 05/17/25 21:48 Blood Pressure 145/93 H 05/17/25 21:48 Pulse Oximetry (%) 100 05/17/25 21:48 Oxygen Delivery Method Room Air 05/17/25 21:48 O2 at 100% on RA and WNLs Abdominal Pain MDM MDM Narrative MDM Narrative:: 44F with history of cholecystectomy today presents to ED with RUQ/epigastric pain and N/V. Patient states she was discharged with [place], but pharmacy wo uldn't fill it. Physical exam reveals RUQ/epigastric tenderness. Patient is afebrile, alert, but appears to be in pain. CT reveals pancreatitis. Significant leukocytosis. CMP remarkable for elevated LFTs (much greater than yesterday), as well as bili elevation. Lipase also elevated. Patient either had stone in CBD from the start (despite normal CBD on US and neg bili), or stone went into CBD from surgical manipulation, or just postop inflammation/sludge it would seem. Care signed out to Dr. Ahuja pending MRCP and dispo. Patient eventually had no CBD stone as confirmed by MRCP and HIDA scan. Patient admitted here. Patient data External records reviewed:: [facility] previous records Clinical information provided by:: patient Social determinants that could affect healthcare access:: none Patient has the following chronic illnesses:: none How is presenting disease/condition affected by chronic disease/condition?: no chronic disease Evaluation data The following diagnostics were reviewed and interpreted by me:: lab results and radiology exam(s) Lab and/or radiology exams considered but not ordered:: ordered Interpretation Summary: above Medications / Prescriptions Medications or Prescriptions considered but not ordered:: ordered Medication administrations:: Medication Administration History Hydromorphone HCl (Hydromorphone Inj 2 Mg/Ml Vial) 0.5 mg IVP Q3H PRN PRN Reason: pain Stop: 05/23/25 03:07 Last Admin: 05/18/25 16:55 Dose: 0.5 mg Documented By: UMER Comments: UNABLE TO SCAN DUE TO PT BEING IN NUCLEAR MED AND NO COMPUTER WITH SCANNER AVAILABLE THERE Admin: 05/18/25 13:56 Dose: 0.5 mg Documented By: Admin: 05/18/25 07:17 Dose: 0.5 mg Documented By: Admin: 05/18/25 03:22 Dose: 0.5 mg Documented By: JESS Lactated Ringer's (Lactated Ringers) 1,000 mls @ 999 mls/hr IV .Q1H1M ONE Stop: 05/18/25 19:23 Lactated Ringer's (Lactated Ringers) 1,000 mls @ 150 mls/hr IV .Q6H40M [facility] HUGO Stop: 05/19/25 14:29 Piperacillin/Tazobactam/Dextrose (Zosyn) 3.375 gm in 50 mls @ 100 mls/hr IV Q6HR [facility] Stop: 05/25/25 18:23 Ondansetron HCl (Ondansetron Inj 2 Mg/Ml Inj 2 Ml) 4 mg IV Q4HR PRN; Protocol PRN Reason: NAUSEA OR VOMITING Stop: 06/17/25 02:43 Last Admin: 05/18/25 13:53 Dose: 4 mg Documented By: Admin: 05/18/25 07:14 Dose: 4 mg Documented By: [facility] Admin: 05/18/25 03:21 Dose: 4 mg Documented By: JESS Discontinued Medications Dexamethasone Sodium Phosphate (Dexamethasone Sod Phos Inj 10 Mg/Ml Vial) 10 mg IVP X1 ONE Stop: 05/17/25 22:05 Last Admin: 05/17/25 22:15 Dose: 10 mg Documented By: YAN Diazepam (Diazepam Inj 5 Mg/Ml Vial 2 Ml) 5 mg IVP X1 ONE Stop: 05/18/25 03:09 Last Admin: 05/18/25 03:24 Dose: 5 mg Documented By: JESS Fentanyl Citrate (Fentanyl Cit Inj 50 Mcg/Ml Amp 2ml) 100 mcg IVP X1 ONE Stop: 05/18/25 00:03 Last Admin: 05/18/25 00:13 Dose: 100 mcg Documented By: YAN Hydromorphone HCl (Hydromorphone Inj 2 Mg/Ml Vial) 1 mg IVP NOW ONE Stop: 05/18/25 10:03 Last Admin: 05/18/25 10:12 Dose: 1 mg Documented By: DO Lactated Ringer's (Lactated Ringers) 1,000 mls @ 500 mls/hr IV .Q2H ONE Stop: 05/18/25 02:09 Last Infusion: 05/18/25 03:02 Dose: Infused Documented By: Admin: 05/18/25 00:22 Dose: 500 mls/hr Documented By: YAN Piperacillin/Tazobactam/Dextrose (Zosyn) 3.375 gm in 50 mls @ 100 mls/hr IV X1 ONE Stop: 05/18/25 03:38 Last Infusion: 05/18/25 03:54 Dose: Infused Documented By: Admin: 05/18/25 03:22 Dose: 100 mls/hr Documented By: JESS Lactated Ringer's (Lactated Ringers) 1,000 mls @ 125 mls/hr IV .Q8H ONE Stop: 05/18/25 11:10 Last Admin: 05/18/25 10:43 Dose: 125 mls/hr Documented By: Infusion: 05/18/25 10:42 Dose: Infused Documented By: Admin: 05/18/25 03:27 Dose: 125 mls/hr Documented By: JESS Ketamine HCl (Ketamine 50 Mg/Ml Vial 10 Ml) 9 mg IVP NOW ONE Stop: 05/18/25 12:53 Last Admin: 05/18/25 13:13 Dose: 9 mg Documented By: UMER Comments: given by nurse for pain Ketorolac Tromethamine (Ketorolac Inj 30 Mg/Ml Vial) 30 mg IVP X1 ONE Stop: 05/18/25 02:03 Last Admin: 05/18/25 02:09 Dose: 30 mg Documented By: [place] Lorazepam (Lorazepam 0.5 Mg Tablet) 1 mg PO X1 ONE Stop: 05/18/25 10:20 Last Admin: 05/18/25 10:41 Dose: 1 mg Documented By: UMER Melatonin (Melatonin 3 Mg Tablet) 3 mg PO HS [facility] HUGO Stop: 06/17/25 20:59 Morphine Sulfate (Morphine Sulf Inj 10 Mg/Ml Vial) 5 mg IVP X1 ONE Stop: 05/17/25 22:05 Last Admin: 05/17/25 22:16 Dose: 5 mg Documented By: YAN Ondansetron HCl (Ondansetron Inj 2 Mg/Ml Inj 2 Ml) 4 mg IV X1 ONE; Protocol Stop: 05/17/25 22:05 Last Admin: 05/17/25 22:15 Dose: 4 mg Documented By: YAN above Consultations Consultation(s) initiated? (list below): Yes Diagnosis Differential diagnosis abdominal pain: abdominal pain, acute appendicitis, calculus of kidney, constipation, diverticulitis, gastroenteritis, pancreatitis, small bowel obstruction and other (CBD stone) Most likely diagnosis given after review of the tests above:: pancreatitis Admission Indicated Admission indicated?: indicated Admission Request Was there a request for admission?: Yes Admission Attestation Admission request attestation: Discussed case with [] from Hospitalist service regarding admission. Discussed patients ED course, exam findings, labs, and radiology results. The Hospitalist [agrees,declines] to accept the patient for admission. Disposition Plan Disposition Plan: Admit Discharge Plan Plan Patient Disposition: Admit Acute Care w/in Hospital Prescriptions/Referrals Prescriptions/Med Rec: No Action ranitidine HCl [Zantac 75] 75 MG tablet 100 mg PO PRN PRN (Reason: GERD) Qty: 0 Hydrocodone/Acetaminophen * (NORCO 7.5/325 *) 1 TAB tablet 1 tab PO Q6H PRN (Reason: ABDOMINAL PAIN) Qty: 40 0RF hydrocodone-acetaminophen 5-325 mg tablet 1 tab PO Q6H MDD 4 Qty: 20 0RF Referrals: No Primary/Family,Physician [Primary Care Provider] - In 1 week Problem List Clinical Impression: Pancreatitis Patient/Caregiver Discharge Instructions Print Language: Ukrainian Stand Alone Forms: Melanie Award Info., Patient Portal Info Letter
[2025-05-18] MEDS: KETOROLAC INJ 30 MG/ML VIAL IVP (02:09)
[2025-05-18] MEDS: ONDANSETRON INJ 2 MG/ML INJ 2 ML 4 MG IV ×3 (03:21→13:53)
[2025-05-18] MEDS: HYDROmorphone INJ 2 MG/ML VIAL 0.5 MG IVP ×6 (03:22→21:58)
[2025-05-18] MEDS: PIPER/TAZO 3.375 GM PREMIX 3.375 GM/50 ML BAG IV ×3 (03:22→23:43)
[2025-05-18] MEDS: DIAZEPAM INJ 5 MG/ML VIAL 2 ML IVP (03:24)
[2025-05-18] MEDS: RINGERS LACTATED 1000 ML 1,000 ML 125 ML IV ×2 (03:27→10:43)
[2025-05-18 03:40] LABS: Lactate (Lactic Acid) 1.9 mMol/L (0.4-2.0)
[2025-05-18 04:22] LABS: Alanine Aminotransferase 695 U/L (10-49); Albumin, Serum 4.0 gm/dL (3.5-5.0); Albumin/Globulin Ratio 1.6 (1.2-2.2); Alkaline Phosphatase 115 U/L (46-116); Anion Gap 13 (7-16); Aspartate Amino Transferase 464 U/L (0-34); BUN/Creatinine Ratio 15 Ratio (12-20); Bilirubin,Total 3.1 mg/dL (0.3-1.2); Blood Urea Nitrogen 9 mg/dL (9-23); Calcium 8.1 mg/dL (8.3-10.6); Calcium (Corrected) 8.1 mg/dL (8.5-10.1); Carbon Dioxide 19.9 mMol/L (20.0-31.0); Chloride 104 mMol/L (98-107); Creatinine (Component) 0.6 mg/dL (0.6-1.3); Estimated Creatinine Clearance 121.3 mL/min (>60); Globulin 2.5 gm/dL (2.3-3.5); Glucose 210 mg/dL (74-106); Osmolality,Calculated 278 (275-295); Potassium 3.4 mMol/L (3.4-5.1); Procalcitonin 0.08 ng/ml (0.0-0.49); Sodium 137 mMol/L (136-145); Total Protein 6.5 gm/dL (5.7-8.2); eGFR > 60 See Note
--- NOTE | 2025-05-18 06:09 | PD.EDADDENDU ---
Emergency Room Addendum Addendum Narrative: Patient is a 44-year-old female is in emerged from with concerns for epigastric pain following cholecystectomy performed on 05/17. Prior provider evaluated patient. Ordered labs, CT of the abdomen, antibiotics and other medications for symptom relief. Labs with evidence of leukocytosis greater than 20. Patient also with uptrending liver function test, as well as a lipase greater than 2000. Concern the patient may have choledocholithiasis following cholecystectomy. Patient is pending MRCP.
--- NOTE | 2025-05-18 07:03 | EDNOTE_ITS ---
Emergency Room Addendum <Marjorie Perez - Last Filed: 05/18/25 17:51> Addendum Narrative: 0600: Care assumed from Dr. Fernández, the previous shift emergency physician. Past medical, surgical, social and family history reviewed. Vitals and home medications reviewed. I will assume the care of the patient at this time, pending MRCP and final disposition. Please refer to the emergency department record for history and examination from initial visit.? Physical exam by me shows patient under no acute distress at this time. 44-year-old female presents to the Emergency Department with epigastric pain following a cholecystectomy performed on 05/17/2025. She was previously evaluated by another provider. Laboratory workup revealed a leukocytosis >20,000, elevated liver function tests, and a lipase level >2000. Given these findings, there is concern for post-cholecystectomy choledocholithiasis. Patient is currently pending MRCP for further evaluation. Differential diagnoses include choledocholithiasis, biliary stricture, and post- operative pancreatitis. I spoke to Dr. Will at [address] Will recommends admission here for management of her pancreatitis. No need for ERCP and/or transfer. 1300: Discussed test HPI, PMHx, lab, radiology results and/or management with resident working with the hospitalist Dr. Harris. They are concerned with liver failure and reaching out to Dr. Camarena. At 1800 hours, patient signed out to Dr. Fernández pending HIDA scan. <Hollie Ahuja MD - Last Filed: 05/19/25 07:50> Addendum Narrative: 0600: Care assumed from Dr. Fernández, the previous shift emergency physician. Past medical, surgical, social and family history reviewed. Vitals and home medications reviewed. I will assume the care of the patient at this time, pending MRCP and final disposition. Please refer to the emergency department record for history and examination from initial visit.? Physical exam by me shows patient under no acute distress at this time. 44-year-old female presents to the Emergency Department with epigastric pain following a cholecystectomy performed on 05/17/2025. She was previously evaluated by another provider. Laboratory workup revealed a leukocytosis >20,000, elevated liver function tests, and a lipase level >2000. Given these findings, there is concern for post-cholecystectomy choledocholithiasis. Patient is currently pending MRCP for further evaluation. Differential diagnoses include choledocholithiasis, biliary stricture, and post- operative pancreatitis. I spoke to Dr. Will at [address] Will recommends admission here for management of her pancreatitis. No need for ERCP and/or transfer. 1300: Discussed test HPI, PMHx, lab, radiology results and/or management with resident working with the hospitalist team under Dr. Harris. They are concerned with liver failure and reaching out to Dr. Camarena. Lipase down trending, t. bili downtrending. patient's pain improved. Tolerating ice chips. At 1800 hours, patient signed out to Dr. Fernández pending HIDA scan. Results <Marjorie Perez - Last Filed: 05/18/25 17:51> Objective Laboratory: Laboratory Last Values WBC 21.4 Thou/mm3 (3.6-11.0) H D 05/17/25 23: RBC 4.30 Miln/mm3 (4.00-5.20) 05/17/25 23: Hgb 13.2 g/dL (12.0-16.0) 05/17/25 23: Hct 38.8 % (36.0-46.0) 05/17/25 23: MCV 90 fL (80-100) 05/17/25 23: MCH 30.7 pg (25.0-35.0) 05/17/25 23: MCHC 34.0 g/dl (31.0-37.0) 05/17/25 23: RDW Std Deviation 46.2 fL (36.4-46.3) 05/17/25: Plt Count 293 Thou/mm3 (140-440) 05/17/25 23: Neut % (Auto) 91 % (37-80) H 05/17/25: Lymph % (Auto) 4 % (10-50) L 05/17/25: [place] % (Auto) 5 % (0-12) 05/17/25 23: Eos % (Auto) 0 % (0-10) 05/17/25: Baso % (Auto) 0 % (0-2.5) 05/17/25: Neut # (Auto) 19.5 Thou/mm3 (1.8-7.7) H 05/17/25 23:25 Lymph # (Auto) 0.7 Thou/mm3 (1.0-4.8) L 05/17/25 23:25 [place] # (Auto) 1.0 Thou/mm3 (0.0-0.8) H 05/17/25 23:25 Eos # (Auto) 0.0 Thou/mm3 (0.0-0.5) 05/17/25 23:25 Baso # (Auto) 0.0 Thou/mm3 (0.0-0.2) 05/17/25 23:25 Immature Gran # (Auto) 0.09 Thou/mm3 (0.00-0.00) H 05/17/25 23:25 Absolute Nucleated RBC 0.00 Thou/mm3 (0.00-0.00) 05/17/25: Immature Gran % 0 % (0-0) 05/17/25: Nucleated RBC % 0 /100 WBC (0) 05/17/25 23:25 Sodium 137 mMol/L (136-145) 05/18/25 03:30 Potassium 3.4 mMol/L (3.4-5.1) 05/18/25 03:30 Chloride 104 mMol/L (98-107) 05/18/25 03:30 Carbon Dioxide 19.9 mMol/L (20.0-31.0) L 05/18/25 03:30 Anion Gap 13 (7-16) 05/18/25 03:30 BUN 9 mg/dL (9-23) 05/18/25 03:30 Creatinine 0.6 mg/dL (0.6-1.3) 05/18/25 03:30 Estim Creat Clear Calc 121.3 mL/min (>60) 05/18/25 03:30 eGFR > 60 See Note (60-) 05/18/25 03:30 BUN/Creatinine Ratio 15 Ratio (12-20) 05/18/25 03:30 Glucose 210 mg/dL (74-106) H 05/18/25 03:30 Calculated Osmolality 278 (275-295) 05/18/25 03:30 Lactic Acid 1.9 mMol/L (0.4-2.0) 05/18/25 03:30 Calcium 8.1 mg/dL (8.3-10.6) L 05/18/25 03:30 Corrected Calcium 8.1 mg/dL (8.5-10.1) L 05/18/25 03:30 Total Bilirubin 3.1 mg/dL (0.3-1.2) H 05/18/25 03:30 AST 464 U/L (0-34) H 05/18/25 03:30 ALT 695 U/L (10-49) H* 05/18/25 03:30 Alkaline Phosphatase 115 U/L (46-116) 05/18/25 03:30 Total Protein 6.5 gm/dL (5.7-8.2) 05/18/25 03:30 Albumin 4.0 gm/dL (3.5-5.0) 05/18/25 03:30 Globulin 2.5 gm/dL (2.3-3.5) 05/18/25 03:30 Albumin/Globulin Ratio 1.6 (1.2-2.2) 05/18/25 03:30 Lipase 2117 U/L (12-53) H* D 05/17/25 23:25 Procalcitonin 0.08 ng/ml (0.0-0.49) 05/18/25 03:30 Imaging: Procedure(s): MR MRCP Accession Number(s): [id number] cc: Destin Simmons MD; NO PRIMARY/FAMILY,PHYSICIAN; Michael Kwong PA-C~ MRI abdomen, without contrast. MRCP Date and time of exam: May 18, 2025 1117 hours INDICATIONS: Status post cholecystectomy with elevated bilirubin and lipase on laboratory examination today, cholecystectomy May 17, 2025 Technique: Multiple axial and coronal images of the abdomen have been obtained with the Siemens 1.5T MRI scanner. Images obtained included T1 weighted transverse images, T2-weighted transverse images, T2-weighted transverse images fat-suppressed, T2 weighted haste fat suppressed transverse images, T1 weighted images, in and out of phase images, T2-weighted coronal images, breath hold, T2 weighted haze coronal images as well as T2 weighted coronal thick slab images, MRCP. Findings: No focal liver lesions Mild free fluid in the abdomen, including significant free fluid surrounding the pancreas Postop mild fluid in the gallbladder fossa Common hepatic common bile ducts are not enlarged no stones Spleen is not enlarged No hydronephrosis IMPRESSION: Mild postop free fluid in the abdomen including surrounding the pancreas Negative for common hepatic or common bile duct stones Dictated By: Destin Simmons MD <Hollie Ahuja MD - Last Filed: 05/19/25 07:50> Objective Laboratory: Laboratory Last Values WBC 21.4 Thou/mm3 (3.6-11.0) H D 05/17/25 23:25 RBC 4.30 Miln/mm3 (4.00-5.20) 05/17/25 23:25 Hgb 13.2 g/dL (12.0-16.0) 05/17/25 23: Hct 38.8 % (36.0-46.0) 05/17/25 23: MCV 90 fL (80-100) 05/17/25 23: MCH 30.7 pg (25.0-35.0) 05/17/25 23: MCHC 34.0 g/dl (31.0-37.0) 05/17/25 23:25 RDW Std Deviation 46.2 fL (36.4-46.3) 05/17/25 23:25 Plt Count 293 Thou/mm3 (140-440) 05/17/25 23:25 Neut % (Auto) 91 % (37-80) H 05/17/25 23: Lymph % (Auto) 4 % (10-50) L 05/17/25 23:25 [place] % (Auto) 5 % (0-12) 05/17/25 23: Eos % (Auto) 0 % (0-10) 05/17/25: Baso % (Auto) 0 % (0-2.5) 05/17/25 23: Neut # (Auto) 19.5 Thou/mm3 (1.8-7.7) H 05/17/25 23:25 Lymph # (Auto) 0.7 Thou/mm3 (1.0-4.8) L 05/17/25:25 [place] # (Auto) 1.0 Thou/mm3 (0.0-0.8) H 05/17/25 23:25 Eos # (Auto) 0.0 Thou/mm3 (0.0-0.5) 05/17/25 23:25 Baso # (Auto) 0.0 Thou/mm3 (0.0-0.2) 05/17/25 23:25 Immature Gran # (Auto) 0.09 Thou/mm3 (0.00-0.00) H 05/17/25 23:25 Absolute Nucleated RBC 0.00 Thou/mm3 (0.00-0.00) 05/17/25 23:25 Immature Gran % 0 % (0-0) 05/17/25 23:25 Nucleated RBC % 0 /100 WBC (0) 05/17/25 23:25 Sodium 137 mMol/L (136-145) 05/18/25 03:30 Potassium 3.4 mMol/L (3.4-5.1) 05/18/25 03:30 Chloride 104 mMol/L (98-107) 05/18/25 03:30 Carbon Dioxide 19.9 mMol/L (20.0-31.0) L 05/18/25 03:30 Anion Gap 13 (7-16) 05/18/25 03:30 BUN 9 mg/dL (9-23) 05/18/25 03:30 Creatinine 0.6 mg/dL (0.6-1.3) 05/18/25 03:30 Estim Creat Clear Calc 121.3 mL/min (>60) 05/18/25 03:30 eGFR > 60 See Note (60-) 05/18/25 03:30 BUN/Creatinine Ratio 15 Ratio (12-20) 05/18/25 03:30 Glucose 210 mg/dL (74-106) H 05/18/25 03:30 Calculated Osmolality 278 (275-295) 05/18/25 03:30 Lactic Acid 1.9 mMol/L (0.4-2.0) 05/18/25 03:30 Calcium 8.1 mg/dL (8.3-10.6) L 05/18/25 03:30 Corrected Calcium 8.1 mg/dL (8.5-10.1) L 05/18/25 03:30 Total Bilirubin 3.1 mg/dL (0.3-1.2) H 05/18/25 03:30 AST 464 U/L (0-34) H 05/18/25 03:30 ALT 695 U/L (10-49) H* 05/18/25 03:30 Alkaline Phosphatase 115 U/L (46-116) 05/18/25 03:30 Total Protein 6.5 gm/dL (5.7-8.2) 05/18/25 03:30 Albumin 4.0 gm/dL (3.5-5.0) 05/18/25 03:30 Globulin 2.5 gm/dL (2.3-3.5) 05/18/25 03:30 Albumin/Globulin Ratio 1.6 (1.2-2.2) 05/18/25 03:30 Lipase 2117 U/L (12-53) H* D 05/17/25 23:25 Procalcitonin 0.08 ng/ml (0.0-0.49) 05/18/25 03:30 Critical Care Time <Marjorie Chris - Last Filed: 05/18/25 17:51> Critical Care Time Critical Care Time: Yes Total Critical Care Time (min.): 40 Attestation: The high probability of sudden, clinically significant deterioration in the patient?s condition required the highest level of my preparedness to intervene urgently. The services I provided to this patient were to treat and/or prevent clinically significant deterioration. Services included the following: chart data review, reviewing nursing notes and/or old charts, documentation time, engagement quality consultant collaboration regarding findings and treatment options, medication orders and management, direct patient care, vital sign assessments and ordering, interpreting and reviewing diagnostic studies and lab tests. Aggregate critical care time includes only time during which I was engaged in work directly related to the patient?s care, as described above, whether at beds a[facility] or elsewhere in the Emergency Department. It did not include time spent performing other reported procedures or the services of residents, students, nurses or physician assistants.
--- NOTE | 2025-05-18 07:15 | PC.NURSE ---
REPORT RECEIVED AND CARE ASSUMED. PT LAYING IN BED AT PRESENT. HERE S/P CHERRY YESTERDAY WITH INCREASED ABD PAIN. SMALL DRESSINGS TO ABD INTACT
[2025-05-18] MEDS: HYDROmorphone INJ 2 MG/ML VIAL 1 MG IVP (10:12)
--- NOTE | 2025-05-18 10:14 | PC.NURSE ---
MRI CALLED ABOUT MRI WILL BE DONE AND TOLD IN ABOUT 1 HOUR
--- NOTE | 2025-05-18 10:20 | PC.NURSE ---
ORDER RECEIVED FROM DR. ARMSTRONG TO PREMEDICATE WITH ATIVAN BEFORE MRI
--- NOTE | 2025-05-18 12:08 | PC.NURSE ---
DR. ARMSTRONG INFORMED THAT PT IN PAIN AND LAST DOSE DILAUDID 2 HOURS AGO.
--- NOTE | 2025-05-18 12:15 | PC.NURSE ---
DR. ARMSTRONG INFORMED ABOUT PT'S PAIN. NO NEW ORDERS YET
[2025-05-18] MEDS: KETAMINE 50 MG/ML VIAL 10 ML 9 MG IVP (13:13)
--- NOTE | 2025-05-18 13:22 | PC.NURSE ---
KETAMINE PUT IN 50 ML NS BAG AND IS INFUSING OVER 15 MINUTES PER MD ORDER
[2025-05-18 13:41] LABS: INR 1.1 (0.9-1.3); Partial Thromboplastin Time 26.0 Seconds (22.0-36.0); Prothrombin Time 12.0 Seconds (9.0-12.2)
[2025-05-18 13:42] LABS: Alanine Aminotransferase 707 U/L (10-49); Albumin, Serum 4.2 gm/dL (3.5-5.0); Albumin/Globulin Ratio 1.8 (1.2-2.2); Alkaline Phosphatase 119 U/L (46-116); Anion Gap 11 (7-16); Aspartate Amino Transferase 350 U/L (0-34); BUN/Creatinine Ratio 13 Ratio (12-20); Bilirubin,Total 1.8 mg/dL (0.3-1.2); Blood Urea Nitrogen 9 mg/dL (9-23); Calcium 8.1 mg/dL (8.3-10.6); Calcium (Corrected) 8.1 mg/dL (8.5-10.1); Carbon Dioxide 23.7 mMol/L (20.0-31.0); Chloride 101 mMol/L (98-107); Creatinine (Component) 0.7 mg/dL (0.6-1.3); Estimated Creatinine Clearance 104.0 mL/min (>60); Globulin 2.4 gm/dL (2.3-3.5); Glucose 148 mg/dL (74-106); Osmolality,Calculated 273 (275-295); Potassium 3.6 mMol/L (3.4-5.1); Sodium 136 mMol/L (136-145); Total Protein 6.6 gm/dL (5.7-8.2); eGFR > 60 See Note
--- NOTE | 2025-05-18 13:47 | XR_ITS ---
Examination: THAO, hepatobiliary radioisotope scan Date and time of exam: May 18, 2025 1633 hours INDICATIONS: Fever chills severe abdominal pain beginning last night, postcholecystectomy, acute pancreatitis Technique: 5.9 mCi of 99M Hepatolite administered. Serial imaging then obtained from immediate through 60 minutes. Findings: Radioisotope activity within the liver is reasonably homogenous. Common bile duct small bowel activity noted Impression: No findings of common bile duct obstruction as isotope activity is present in the small bowel No biliary leak
--- NOTE | 2025-05-18 14:25 | PD.RESEVENT ---
Documentation for date of: 05/18/25 Event Note Event Note: Received call from ED for admission, patient is a 44-year-old female, she is s/p laparoscopic cholecystectomy, postop day 1, performed by general surgeon Dr. Will. The patient complained of fever shaking chills starting last night, complained of severe abdominal pain localized to both right and left upper quadrants, abdomen is tender on palpation, but soft and nondistended. Dressing at the site reports is clean and dry. Patient said that she came to the emergency room due to worsening pain and nausea, has not been able to eat since yesterday. We spoke to general surgeon Dr. Will who recommended that patient seems to have acute pancreatitis, due to a possible stone in her biliary tree which may have passed, as MRCP was negative for choledocholithiasis. Did notice Mild postop free fluid surrounding the pancreas. Noted acute elevation of transaminases and bilirubin, in the setting of acute pancreatitis, as well as fever, concern about ascending cholangitis, I spoke to cable assembler Dr. Camarena who recommended getting a HIDA scan to evaluate for biliary leak. We spoke to our attending Dr. Harris, admission orders will be held until HIDA scan is done. #Acute pancreatitis #Concern for cholangitis #Acute liver injury #Status post laparoscopic cholecystectomy?POD 1 ? Recommend to initiate antibiotics, blood cultures, give IV fluids, trend CMP/liver panel, keep patient n.p.o. ? Recommend getting HIDA scan to evaluate for biliary leak, per GI Plan of care discussed with Attennding Dr Harris Quresh pgy3
[2025-05-18 14:26] LABS: C-Reactive Protein 3.5 mg/dL (0.0-0.9); Lipase 1265 U/L (12-53)
--- NOTE | 2025-05-18 14:57 | PC.NURSE ---
SPOKE WITH RICCARDO FROM [facility]. PER RICCARDO HE WILL BE ABLE TO DO HIDA SCAN ON PT IN [address] ARMSTRONG INFORMED.
--- NOTE | 2025-05-18 15:53 | PC.NURSE ---
DR. HENDERSON HERE TO SEE PT
--- NOTE | 2025-05-18 17:59 | PC.NURSE ---
WHILE REVIEWING HOSPITALIST DOCUMENTATION, NOTICED THAT MD CHARTED HE HAS LUNG MASS, ON THIS LADIES CHART BUT THAT PART OF THE NOT BELONGS ON ANOTHER PT'S CHART. THIS LADY MCNAMARA NOT HAVE A LUNG MASS
--- NOTE | 2025-05-18 18:13 | PD.EDADDENDU ---
Emergency Room Addendum <Cristine Allen - Last Filed: 05/18/25 19:17> Addendum Narrative: 1800: Care assumed from Dr. Ahuja (emergency physician). Past medical, surgical, social and family history reviewed. Vitals and home medications reviewed. Results and treatment plan discussed. I will assume the care of the patient at this time and will follow the patient, pending HIDA scan. The following addendum documentation note is intended to reflect any pending information, findings, or radiology results not included in the patient?s initial chart by the previous shift scribe. RADIOLOGY Gall Bladder Scan Nuclear Medicine: Findings: Radioisotope activity within the liver is reasonably homogenous. Common bile duct small bowel activity noted Impression: No findings of common bile duct obstruction as isotope activity is present in the small bowel No biliary leak 1820: Resident doctor for Dr. Gould, our hospitalist, made aware of the patient?s HPI, PMHx, lab and/or radiology results. Treatment plan was discussed. Will admit for further evaluation and management. Accepts patient for admission. <Calin Jones FernándezDO - Last Filed: 05/18/25 19:28> Addendum Narrative: 1800: Care assumed from Dr. Ahuja (emergency physician). Past medical, surgical, social and family history reviewed. Vitals and home medications reviewed. Results and treatment plan discussed. I will assume the care of the patient at this time and will follow the patient, pending HIDA scan. The following addendum documentation note is intended to reflect any pending information, findings, or radiology results not included in the patient?s initial chart by the previous shift scribe. RADIOLOGY Gall Bladder Scan Nuclear Medicine: Findings: Radioisotope activity within the liver is reasonably homogenous. Common bile duct small bowel activity noted Impression: No findings of common bile duct obstruction as isotope activity is present in the small bowel No biliary leak 1820: Resident doctor for Dr. Gould, our hospitalist, made aware of the patient?s HPI, PMHx, lab and/or radiology results. Treatment plan was discussed. Will admit for further evaluation and management. Accepts patient for admission. The HIDA scan came back showing no biliary leak. I will discuss this case with the night hospitalist so the patient now can be admitted to the hospital for further treatment and evaluation for her gallstone induced pancreatitis with leukocytosis. Patient has been on Zosyn for antibiotic coverage. Dr. Ahuja has already discussed this case with the patient's surgeon, Dr. Wood.
--- NOTE | 2025-05-18 18:19 | PC.NURSE ---
[facility]
--- NOTE | 2025-05-18 18:26 | PD.RESEVENT ---
Documentation for date of: 05/18/25 Event Note Event Note: Received call for potential admit at 1825. Patient was a potential admit earlier in the day, admission was deferred pending result of HIDA scan due to concern for CBD stone. HIDA scan negative, ED would like to admit patient for acute pancreatitits. Given proximity to shift change, will sign out to night team, who will see patient for admission. Tae Yeh MD PGY-2
[2025-05-18] MEDS: RINGERS LACTATED 1000 ML 1,000 ML 150 ML IV (19:25)
[2025-05-18] MEDS: RINGERS LACTATED 1000 ML 1,000 ML 999 ML IV (19:25)
--- NOTE | 2025-05-18 19:43 | PD.RESHP ---
Documentation for date of: 05/18/25 HPI History of Present Illness Chief complaint: Abdominal pain History of present illness: 44-year-old female with 2 C-sections, appendectomy, tubal ligation, very recent cholecystectomy presenting to the ED on 05/17 with abdominal pain. Patient had laparoscopic cholecystectomy with general surgery day prior and states that she woke up that evening with fever/chills and severe epigastric abdominal pain radiating to her back. Patient states the pain at its worst fluctuates from a 6 out of 10 to a 10 out of 10. Patient denies any heavy alcohol use and denies any similar episodes in the past. Per surgery note, patient was having episodic pain 3 weeks ago while on a cruise started having some vomiting and nausea. Patient has never been told in the past that she has a gallstone until very recently. Patient otherwise denies having any concerning symptoms such as chest pain, shortness of breath, palpitations, dizziness or new headaches. 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 Pertinent lab findings include WBC of 21.4, BUN 9, creatinine 0.7, glucose 148, lactic acid 1.9, corrected calcium of 8.1, T. bili 1.8, AST 350, ALT 707, alk phos 119, lipase initially at 2117 and down trended to 1265, Pro-Srinivas 0.08. CT abdomen pelvis shows acute pancreatitis, MRCP showed mild postop free fluid in the abdomen surrounding the pancreas but no common hepatic or common bile duct stones, gallbladder nuclear scan no common bile duct obstruction and no biliary leak. Patient will be admitted for management of acute gallstone pancreatitis and will be treated with IV fluid resuscitation, IV pain medicine along with workup for possible underlying infection with blood cultures and IV antibiotics. Exam Vital Signs Temp Pulse Resp BP Pulse Ox O2 Del Method O2 Flow Rate 98.2 F 136 H 18 112/65 95 Room Air 4 05/18/25 19:31 05/18/25 19:31 05/18/25 19:31 05/18/25 19:31 05/18/25 19:31 05/18/25 19:31 05/18/25 14:00 Narrative Exam Physical Exam: GENERAL: Awake, answering questions appropriately, appears stated age, obese HEENT: NC/AT. Moist mucosa. PERRLA/EOMI. CARDIO: Heart RRR, no obvious murmurs, no JVD. PULM: No coughing or visible SOB. Lungs CTA B/L. GI: Abdomen soft, tender to palpation on right upper, epigastric and left upper quadrants with with guarding but no rebound tenderness. Borborygmi apparent SKIN/MSK/EXT: No wounds/discoloration/rashes/edema/amputations. +Pedal pulses present B/L. NEURO: Oriented x3, Moves extremities x4, no focal neurologic deficits noted Results: Labs 05/17/25 23:25 05/18/25 12:56 Labs: Short CBC 05/17/25 Range/Units 23:25 WBC 21.4 H D (3.6-11.0) Thou/mm3 Hgb 13.2 (12.0-16.0) g/dL Hct 38.8 (36.0-46.0) % Plt Count 293 (140-440) Thou/mm3 BMP 05/17/25 05/18/25 05/18/25 23: 03:30 12:56 Sodium 138 137 136 Potassium 3.7 D 3.4 3.6 Chloride 106 104 101 Carbon Dioxide 19.8 L 19.9 L 23.7 BUN 9 9 9 Creatinine 0.7 0.6 0.7 Glucose 182 H 210 H 148 H D Calcium 9.1 8.1 L 8.1 L Liver Function 05/17/25 05/18/25 05/18/25 Range/Units 23:25 03:30 12:56 Total Bilirubin 3.0 H D 3.1 H 1.8 H D (0.3-1.2) mg/dL AST 473 H 464 H 350 H (0-34) U/L ALT 684 H* 695 H* 707 H* (10-49) U/L Alkaline Phosphatase 117 H D 115 119 H (46-116) U/L Albumin 4.4 4.0 4.2 (3.5-5.0) gm/dL Quality Measures Quality Measures none Medications Home Medications and Allergies Home Medications ?Medication ?Instructions ?Recorded ?Confirmed ?Type ranitidine HCl 75 mg tablet 100 mg PO PRN PRN GERD #0 tabs 04/10/15 History (Zantac) Allergies Allergy/AdvReac Type Severity Reaction Status Date / Time NKA Allergy Unknown Uncoded 05/16/25 23:50 Visit Medications Acetaminophen (Acetaminophen 325 Mg Tablet) 650 mg PO Q6H PRN PRN Reason: PAIN SCALE 1-3 (mild Stop: 06/17/25 19:28 Hydrocodone Bitart/Acetaminophen (Hydrocodone/Apap 5/325 Tablet) 1 tab PO Q6HR PRN PRN Reason: Pain 4-6 Stop: 05/23/25 19:32 Enoxaparin Sodium (Enoxaparin Sod Inj 40 Mg/0.4 Ml Syringe) 40 mg SC QDAY [facility] Stop: 06/02/25 08:59 Hydromorphone HCl (Hydromorphone Inj 2 Mg/Ml Vial) 0.5 mg IVP Q6HR PRN PRN Reason: Pain 7-10 Stop: 05/23/25 19:28 Piperacillin/Tazobactam/Dextrose (Zosyn) 3.375 gm in 50 mls @ 100 mls/hr IV Q6HR [facility] Stop: 05/25/25 18:23 Last Admin: 05/18/25 19:30 Dose: 100 mls/hr Lactated Ringer's (Lactated Ringers) 1,000 mls @ 135 mls/hr IV .Q7H25M [facility] Stop: 05/19/25 17:42 Ondansetron HCl (Ondansetron Inj 2 Mg/Ml Inj 2 Ml) 4 mg IV Q4HR PRN; Protocol PRN Reason: NAUSEA OR VOMITING Stop: 06/17/25 02:43 Last Admin: 05/18/25 13:53 Dose: 4 mg Discontinued Medications Dexamethasone Sodium Phosphate (Dexamethasone Sod Phos Inj 10 Mg/Ml Vial) 10 mg IVP X1 ONE Stop: 05/17/25 22:05 Last Admin: 05/17/25 22:15 Dose: 10 mg Diazepam (Diazepam Inj 5 Mg/Ml Vial 2 Ml) 5 mg IVP X1 ONE Stop: 05/18/25 03:09 Last Admin: 05/18/25 03:24 Dose: 5 mg Fentanyl Citrate (Fentanyl Cit Inj 50 Mcg/Ml Amp 2ml) 100 mcg IVP X1 ONE Stop: 05/18/25 00:03 Last Admin: 05/18/25 00:13 Dose: 100 mcg Hydromorphone HCl (Hydromorphone Inj 2 Mg/Ml Vial) 0.5 mg IVP Q3H PRN PRN Reason: pain Stop: 05/23/25 03:07 Last Admin: 05/18/25 16:55 Dose: 0.5 mg Hydromorphone HCl (Hydromorphone Inj 2 Mg/Ml Vial) 1 mg IVP NOW ONE Stop: 05/18/25 10:03 Last Admin: 05/18/25 10:12 Dose: 1 mg Lactated Ringer's (Lactated Ringers) 1,000 mls @ 500 mls/hr IV .Q2H ONE Stop: 05/18/25 02:09 Last Infusion: 05/18/25 03:02 Dose: Infused Piperacillin/Tazobactam/Dextrose (Zosyn) 3.375 gm in 50 mls @ 100 mls/hr IV X1 ONE Stop: 05/18/25 03:38 Last Infusion: 05/18/25 03:54 Dose: Infused Lactated Ringer's (Lactated Ringers) 1,000 mls @ 125 mls/hr IV .Q8H ONE Stop: 05/18/25 11:10 Last Infusion: 05/18/25 19:24 Dose: Infused Lactated Ringer's (Lactated Ringers) 1,000 mls @ 999 mls/hr IV .Q1H1M ONE Stop: 05/18/25 19:23 Last Admin: 05/18/25 19:25 Dose: 999 mls/hr Lactated Ringer's (Lactated Ringers) 1,000 mls @ 150 mls/hr IV .Q6H40M [facility] Stop: 05/19/25 14:29 Last Admin: 05/18/25 19:25 Dose: 150 mls/hr Ketamine HCl (Ketamine 50 Mg/Ml Vial 10 Ml) 9 mg IVP NOW ONE Stop: 05/18/25 12:53 Last Admin: 05/18/25 13:13 Dose: 9 mg Ketorolac Tromethamine (Ketorolac Inj 30 Mg/Ml Vial) 30 mg IVP X1 ONE Stop: 05/18/25 02:03 Last Admin: 05/18/25 02:09 Dose: 30 mg Lorazepam (Lorazepam 0.5 Mg Tablet) 1 mg PO X1 ONE Stop: 05/18/25 10:20 Last Admin: 05/18/25 10:41 Dose: 1 mg Melatonin (Melatonin 3 Mg Tablet) 3 mg PO HS [facility] Stop: 06/17/25 20:59 Morphine Sulfate (Morphine Sulf Inj 10 Mg/Ml Vial) 5 mg IVP X1 ONE Stop: 05/17/25 22:05 Last Admin: 05/17/25 22:16 Dose: 5 mg Ondansetron HCl (Ondansetron Inj 2 Mg/Ml Inj 2 Ml) 4 mg IV X1 ONE; Protocol Stop: 05/17/25 22:05 Last Admin: 05/17/25 22:15 Dose: 4 mg Assessment & Plan Plan 44-year-old female with 2 C-sections, appendectomy, tubal ligation, very recent cholecystectomy presenting to the ED on 05/17 with abdominal pain will be admitted for management of acute gallstone pancreatitis and will be treated with IV fluid resuscitation, IV pain medicine along with workup for possible underlying infection with blood cultures and IV antibiotics. #Acute pancreatitis #Elevated liver enzymes As stated above, patient had recent laparoscopic cholecystectomy for symptomatic cholelithiasis Presenting with subjective fevers, abdominal pain On examination, patient has tenderness to palpation on upper quadrants of the abdomen along with elevated lipase CT abdomen pelvis shows acute pancreatitis MRCP showed mild postop free fluid in the abdomen surrounding the pancreas but no common hepatic or common bile duct stones gallbladder nuclear scan no common bile duct obstruction and no biliary leak. In the ED, patient received roughly 4-5 L of IV LR, currently on maintenance along with IV Dilaudid for pain management Plan: Continue IV fluid resuscitation N.p.o., advance as tolerated Multimodal pain management #Leukocytosis Likely secondary to reactive process versus underlying infection Patient's Pro-Srinivas 0.08 and no fever recorded while in the ED Plan: Follow-up on blood cultures Continue IV Zosyn #Electrolyte abnormalities Likely secondary to acutely ill status versus aggressive IV fluid resuscitation Plan: Replete as necessary Monitor with morning labs #Marijuana use disorder #Nicotine dependence Chronic medical conditions Plan: Consider nicotine patch if patient requests Account 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 Faye Brown, PGY-2 Internal Medicine - GME Attending Provider Attestation/Addendum I attest that I was physically present for the evaluation, physical examination, lab and imaging review of the patient with the residents. I discussed the case with the residents and agree with the findings and plans of care as documented above. After examination of the patient and review of the clinical data I feel that this patient needs admission to the hospital for further treatment/evaluation. Patient is a 44 years old female with history of appendectomy, tubal ligation, 2 sections and recent cholecystectomy on 05/17/2025 presented to the ED with complaint of abdominal pain. Patient woke up this evening with fever, chills and severe epigastric abdominal pain radiating to her back. The pain has been after 08/03. Denies heavy alcohol abuse, chest pain, shortness of breath, change in bowel or bladder habit. In the ED, she was mildly hypertensive with blood pressure of 145/93, tachypneic with respiratory rate of 26. Lab results show WBC of 21.4, calcium 8.1, total bilirubin 1.8, AST 350, ALT 77 and ALP 119. Lipase initially was 2117. CT abdomen/pelvis was done, which shows acute pancreatitis. MRCP was also performed which showed mild postoperative free fluid in the abdomen surrounding the pancreas but no stones and common hepatic, common bile duct, no CBD dilation. HIDA scan was negative for cholecystitis. Abdomen is soft but tender to palpate on upper abdomen, no rebound tenderness. Also complains of mild nausea but no vomiting. Will admit the patient for management of acute pancreatitis, started on IV hydration, patient received multiple fluid boluses in the ED. Analgesic regimen and antiemetics on board. We will keep her n.p.o. for now, will start diet once nausea resolves. Patient also has leukocytosis possibly from reactive process but could not rule out infection, we will start her on IV Zosyn and obtain blood cultures. Rosa Mckinney MD
[2025-05-18] MEDS: RINGERS LACTATED 1000 ML 1,000 ML 135 ML IV (19:46)
[2025-05-18 20:08] LABS: Magnesium 1.4 mg/dL (1.6-2.6); Phosphorous 1.7 mg/dL (2.4-5.1)
[2025-05-18 20:36] LABS: Cardiac Risk Estimate 2.5 RATIO (3.7-5.6); Cholesterol 194 mg/dL (132-200); HDL Cholesterol 77 mg/dL (40-60); LDL Cholesterol,Calculated 103 mg/dL (0-130); Triglycerides 72 mg/dL (30-150)
[2025-05-18] MEDS: HYDROcodone/APAP 5/325 TABLET 1 TAB PO (21:10)
[2025-05-19] VITALS: BP 146/92; PULSE 113; RESP 19; TEMP 37.1; O2SAT 96
[2025-05-19] MEDS: HYDROmorphone INJ 2 MG/ML VIAL 0.5 MG IVP ×2 (01:27→06:37)
[2025-05-19] MEDS: RINGERS LACTATED 1000 ML 1,000 ML 135 ML IV (01:34)
[2025-05-19] MEDS: HYDROmorphone INJ 2 MG/ML VIAL 1 MG IVP ×5 (02:52→20:48)
[2025-05-19 04:00] VITALS: BP 140/98; PULSE 115; RESP 18; TEMP 37.1; O2SAT 94
[2025-05-19] MEDS: HYDROcodone/APAP 5/325 TABLET 1 TAB PO (04:40)
[2025-05-19] MEDS: PIPER/TAZO 3.375 GM PREMIX 3.375 GM/50 ML BAG IV (05:10)
[2025-05-19 05:29] LABS: Basophils # (Auto) 0.1 Thou/mm3 (0.0-0.2); Basophils % (Auto) 0 % (0-2.5); Eosinophils # (Auto) 0.0 Thou/mm3 (0.0-0.5); Eosinophils % (Auto) 0 % (0-10); Hematocrit 36.0 % (36.0-46.0); Hemoglobin 12.7 g/dL (12.0-16.0); Immature Granulocytes Auto 0.80 Thou/mm3 (0.00-0.00); Lymphocytes # (Auto) 1.0 Thou/mm3 (1.0-4.8); Lymphocytes % (Auto) 3 % (10-50); Mean Corpuscular HGB Conc 35.3 g/dl (31.0-37.0); Mean Corpuscular Hemoglobin 31.1 pg (25.0-35.0); Mean Corpuscular Volume 88 fL (80-100); Monocytes # (Auto) 2.9 Thou/mm3 (0.0-0.8); Monocytes % (Auto) 7 % (0-12); Neutrophils # (Auto) 34.2 Thou/mm3 (1.8-7.7); Neutrophils % (Auto) 88 % (37-80); Nucleated Red Blood Cell # 0.00 Thou/mm3 (0.00-0.00); Nucleated Red Blood Cell % 0 /100 WBC (0); Platelet Count 262 Thou/mm3 (140-440); RDW Standard Deviation 46.5 fL (36.4-46.3); Red Blood Count 4.08 Miln/mm3 (4.00-5.20)
[2025-05-19 05:57] LABS: Glucose Estimated Average 114 mg/dL (80-131); Hemoglobin A1C 5.6 % Hgb (4.8-6.0)
[2025-05-19 06:02] LABS: Alanine Aminotransferase 436 U/L (10-49); Albumin, Serum 3.7 gm/dL (3.5-5.0); Albumin/Globulin Ratio 1.6 (1.2-2.2); Alkaline Phosphatase 101 U/L (46-116); Anion Gap 13 (7-16); Aspartate Amino Transferase 116 U/L (0-34); BUN/Creatinine Ratio 7 Ratio (12-20); Bilirubin,Total 1.4 mg/dL (0.3-1.2); Blood Urea Nitrogen 5 mg/dL (9-23); Calcium 7.7 mg/dL (8.3-10.6); Calcium (Corrected) 7.9 mg/dL (8.5-10.1); Carbon Dioxide 24.9 mMol/L (20.0-31.0); Chloride 98 mMol/L (98-107); Creatinine (Component) 0.7 mg/dL (0.6-1.3); Estimated Creatinine Clearance 105.9 mL/min (>60); Globulin 2.3 gm/dL (2.3-3.5); Glucose 129 mg/dL (74-106); Magnesium 1.5 mg/dL (1.6-2.6); Osmolality,Calculated 271 (275-295); Phosphorous 1.5 mg/dL (2.4-5.1); Potassium 3.2 mMol/L (3.4-5.1); Sodium 136 mMol/L (136-145); Total Protein 6.0 gm/dL (5.7-8.2); eGFR > 60 See Note
[2025-05-19] MEDS: Magnesium Sulfate 4 GM Ivpb 4 GM/50 ML BAG IV (06:03)
[2025-05-19 06:10] LABS: White Blood Count 38.9 Thou/mm3 (3.6-11.0)
[2025-05-19 06:31] LABS: Amylase 928 U/L (30-118); Lipase 401 U/L (12-53)
--- NOTE | 2025-05-19 07:05 | PD.SURPROG ---
Documentation for date of: 05/19/25 Subjective Subjective Narrative: Patient is experiencing continued abdominal pain and has not shown much relief with Dilaudid. She is not passing flatus. Exam Vital Signs Temp Pulse Resp BP Pulse Ox O2 Del Method O2 Flow Rate 98.7 F 115 H 18 140/98 H 94 L Room Air 4 05/19/25 04:00 05/19/25 04:00 05/19/25 04:00 05/19/25 04:00 05/19/25 04:00 05/19/25 04:00 05/18/25 14:00 Vital signs revealed persistent tachycardia even though it is better than yesterday Routine Abdominal Exam Comments: Abdominal examination shows some tenderness in the upper abdomen with hypoactive bowel Results Results: Laboratory Laboratory Narrative: Laboratory results show significant change with increasing WBC to 39,000. Patient also has hypocalcemia and hypomagnesemia which needs to be replaced. Her potassium is 3.2 Assessment & Plan Assessment Additional comments: Pression: Fulminant pancreatitis Plan Plan: We should monitor her closely and replace the electrolytes. May consider keeping her in intensive care unit for a day or 2
[2025-05-19 08:00] VITALS: BP 146/81; PULSE 98; RESP 18; TEMP 36.7; O2SAT 94
[2025-05-19] MEDS: MEROPENEM INJ 1,000 MG in SODIUM CHLORIDE 0.9% (Popper) 50 ML 100 MG IV ×3 (08:10→20:49)
[2025-05-19] MEDS: ENOXAPARIN SOD INJ 40 MG/0.4 ML SYRINGE SC (08:11)
[2025-05-19 08:53] LABS: Path Review Blood Smear Sent to Pathologist
[2025-05-19] MEDS: CALCIUM GLUC/NS 1000MG IVPB 1,000 MG/50 ML BAG 50 MG IV ×2 (09:00→15:58)
--- NOTE | 2025-05-19 09:06 | XR_ITS ---
Examination: Abdomen AP single view Technique: AP portable supine abdomen, single view Exam date and time: May 19, 2025, 0932 hrs. Indications: Abdominal distention today. Findings: Mild to moderate stool throughout the colon. No obstruction. Surgical clips upper right abdomen. No free air Impression: Nonobstructive bowel gas pattern.
[2025-05-19] MEDS: POT PHOS 15 mMol in NS 250 ML 15 MMOL/250 ML BAG 62.5 MMOL IV ×3 (10:12→17:06)
--- NOTE | 2025-05-19 11:00 | PC.SS ---
SS attempted to meet with patient to complete initial assessment. However, patient was not in room at the time. SS to return at a later time.
--- NOTE | 2025-05-19 11:04 | ESPR_ITS ---
<Statement entered by Singh Gould MD - 05/22/25 08:34> I reviewed above note and agree with findings and plans. I have also personally examined the patient with medicine team and went over assessment and plan with medical team including biomedical engineering internship and resident physician. <Statement entered by Vladimir Andersen MD - 05/19/25 13:10> Patient was seen and examined at the bedside. Patient is admitted for acute pancreatitis. Recently underwent cholecystectomy 05/18. She came with abdominal pain and no passage of gas. Prior to admission, T. bili was elevated and there was a concern for stone passage causing pancreatitis after cholecystectomy therefore HIDA scan was ordered to evaluate for biliary leakage. HIDA scan was negative. Therefore patient was admitted overnight. Aggressive IV fluid resuscitation was given around 6 L. Patient is running 150 cc LR with pain management and antibiotics were changed from Zosyn to meropenem due to elevated white count. This morning labs showed significant elevation in the white count to 38.9, hemoglobin stable at 12.7. Chemistry panel showed potassium 3.2. Bicarb 24.9. Kidney function stable. Creatinine 0.7. Glucose 129. A1c 5.6. Phosphorus 1.5. Magnesium 1.5. Corrected calcium 7.9. T. bili downtrending to 1.4. Liver enzymes improved AST 116 and ALT 436. Amylase 928. Lipase 401. Pain management increased to 1 mg Dilaudid every 4 hourly. Bladder scan was ordered to evaluate urinary retention. Ramos catheter was placed due to concern for abdominal compartment syndrome due to abdominal distention and no passage of flatus. KUB showed nonobstructive bowel gas pattern. Blood cultures showing no growth in 24 hours. Continuing with meropenem for now. Lactic acid is 2.1. Patient was shifted to telemetry for close monitoring. Follow-up on repeat labs including CBC, CMP, lactic acid, VBG and procalcitonin. I discussed and supervised with the biomedical engineering internship physician who took care of this patient. I personally saw and examined the patient. I agree with most of the assessment and plan. Disclaimer: Despite multiple revisions, due to the dictation software being used, the document bellow may not be free of grammatical errors including phonetic/typographic errors. However, this does not deter from our commitment to providing health care in the patient's best interest in mind. Plan of care discussed with attending Physician Dr. Luis Fernando Andersen MD PGY-3 Documentation for date of: 05/19/25 Subjective Subjective Interval history: No overnight events. Evaluated at bedside. Pt complains of 7/10 diffuse abdominal pain that is tender with palpation. Pt has not have a bowel movement since surgery on 05/17. Pt meets SIRS criteria, with an elevated WBC of 38.9 and HR of 122 today. VS stable overnight, afebrile, but tachycardic likely due to pain. Gen surg to follow. ID to follow on Wednesday. Electrolytes repleted. Dced Zosyn, switch to Meropenem due to elevated WBC. Multimodal pain mangement provided. Exam Vital Signs Temp Pulse Resp BP Pulse Ox O2 Del Method O2 Flow Rate 98.1 F 98 18 146/81 H 94 L Room Air 4 05/19/25 08:00 05/19/25 08:00 05/19/25 08:00 05/19/25 08:00 05/19/25 08:00 05/19/25 08:00 05/18/25 14:00 Narrative Exam GENERAL: Awake, answering questions appropriately, appears stated age, obese, NAD, but appears discomfort HEENT: NC/AT. Moist mucosa. PERRLA/EOMI. CARDIO: Heart RRR, no obvious murmurs, no JVD. PULM: No coughing or visible SOB. Lungs CTA B/L. GI: Abdomen soft, tender to palpation on all quadrants with rebound tenderness. Port insertions sites intact. Borborygmi apparent. No BM since 05/17 SKIN/MSK/EXT: No wounds/discoloration/rashes/edema/amputations. +Pedal pulses present B/L. NEURO: Oriented x3, Moves extremities x4, no focal neurologic deficits noted Objective Labs 05/19/25 12:58 05/19/25 12:58 Labs: Laboratory Results - last 24 hr 05/18/25 05/18/25 05/19/25 12:56 19:41 04:20 WBC 38.9 H* D RBC 4.08 Hgb 12.7 Hct 36.0 MCV 88 MCH 31.1 MCHC 35.3 RDW Std Deviation 46.5 H Plt Count 262 D Neut % (Auto) 88 H Lymph % (Auto) 3 L [place] % (Auto) 7 Eos % (Auto) 0 Baso % (Auto) 0 Neut # (Auto) 34.2 H Lymph # (Auto) 1.0 [place] # (Auto) 2.9 H Eos # (Auto) 0.0 Baso # (Auto) 0.1 Immature Gran # (Auto) 0.80 H Absolute Nucleated RBC 0.00 Immature Gran % 2 H Nucleated RBC % 0 Smear Path Review Sent to Pathologist PT 12.0 INR 1.1 APTT 26.0 Sodium 136 136 Potassium 3.6 3.2 L Chloride 101 98 Carbon Dioxide 23.7 24.9 Anion Gap 11 13 BUN 9 5 L Creatinine 0.7 0.7 Estim Creat Clear Calc 104.0 105.9 eGFR > 60 > 60 BUN/Creatinine Ratio 13 7 L Glucose 148 H D [address] Glu mg/dL 114 Hemoglobin A1c 5.6 Calculated Osmolality 273 L 271 L Calcium 8.1 L 7.7 L Corrected Calcium 8.1 L 7.9 L Phosphorus 1.7 L 1.5 L Magnesium 1.4 L 1.5 L Total Bilirubin 1.8 H D 1.4 H AST 350 H 116 H ALT 707 H* 436 H Alkaline Phosphatase 119 H 101 C-Reactive Prot, Quant 3.5 H Total Protein 6.6 6.0 Albumin 4.2 3.7 D Globulin 2.4 2.3 Albumin/Globulin Ratio 1.8 1.6 Triglycerides 72 Cholesterol 194 LDL Cholesterol, Calc 103 HDL Cholesterol 77 H Cholesterol/HDL Ratio 2.5 L Amylase 928 H* Lipase 1265 H* D 401 H D Quality Measures Quality Measures none Assessment & Plan Assessment Current Active Medications: Generic Name Dose Route Start Last Admin Trade Name Mariluz PRN Reason Stop Dose Admin Acetaminophen 650 mg 05/18/25 19:29 Acetaminophen 325 Mg Tablet PO 06/17/25 19:28 Q6H PRN PAIN SCALE 1-3 (mild Hydrocodone Bitart/Acetaminophen 1 tab 05/18/25 19:33 05/19/25 04:40 Hydrocodone/Apap 5/325 Tablet PO 05/23/25 19:32 1 tab Q6HR PRN Administration Pain 4-6 Enoxaparin Sodium 40 mg 05/19/25 09:00 05/19/25 08:11 Enoxaparin Sod Inj 40 Mg/0.4 Ml Syringe SC 06/02/25 08:59 40 mg QDAY VICTOR HUGO Administration Hydromorphone HCl 1 mg 05/19/25 09:20 Hydromorphone Inj 2 Mg/Ml Vial IVP 05/24/25 09:19 Q4HR PRN Pain 7-10 Potassium Phosphate 15 mmol in 250 mls @ 62.5 mls/hr 05/19/25 09:00 05/19/25 10:12 Pot Phos 15 Mmol In Ns 250 Ml IV 05/19/25 16:59 62.5 mls/hr Q4H VICTOR HUGO Administration Meropenem 1,000 mg/ Sodium 50 mls @ 100 mls/hr 05/19/25 07:45 05/19/25 08:10 Chloride IV 05/26/25 07:44 100 mls/hr Q8HR VICTOR HUGO Administration Lactated Ringer's 1,000 mls @ 150 mls/hr 05/19/25 07:39 Lactated Ringers IV 05/20/25 03:38 .Q6H40M VICTOR HUGO Ondansetron HCl 4 mg 05/18/25 02:44 05/18/25 13:53 Ondansetron Inj 2 Mg/Ml Inj 2 Ml IV 06/17/25 02:43 4 mg Q4HR PRN Administration NAUSEA OR VOMITING Protocol Plan 44-year-old female with 2 C-sections, appendectomy, tubal ligation, very recent cholecystectomy presenting to the ED on 05/17 with abdominal pain will be admitted for management of acute gallstone pancreatitis and will be treated with IV fluid resuscitation, IV pain medicine along with workup for possible underlying infection with blood cultures and IV antibiotics. Pending final BCx. Pending CT abd w/con. ID to follow on Wednesday. #Acute pancreatitis #Elevated liver enzymes As stated above, patient had recent laparoscopic cholecystectomy for symptomatic cholelithiasis Presenting with subjective fevers, abdominal pain On examination, patient has tenderness to palpation on upper quadrants of the abdomen along with elevated lipase CT abdomen pelvis shows acute pancreatitis MRCP showed mild postop free fluid in the abdomen surrounding the pancreas but no common hepatic or common bile duct stones Gallbladder nuclear scan no common bile duct obstruction and no biliary leak. In the ED, patient received roughly 4-5 L of IV LR, currently on maintenance along with IV Dilaudid for pain management Plan: - Continue LR at a rate of 170mLs/hr - GI consult : recommends CT abdomen w/ con - N.p.o., advance as tolerated - Multimodal pain management #Abdominal distention Abdomen XR shows mild to moderate stool throughout the colon. Nonobstructive bowel gas pattern. - Consider water enema to help pass bowel movement - NG inserted for gastric decompression - if no improvement with pain, consider KUB #Sinus Tachycardia - likely due to dehydration vs pain vs infection EKG Sinus tach at a rate of 120s. QTc 454 - Continue fluid resuscitation - Multimodal pain control - Monitor vital signs - Avoid QTc prolonging agents #Lactic acidosis, likely type B - downtrending Initial lactate 2.1 -> 1.7 -> 1.2. Consider infectious etiology. - Continue fluid resuscitation - BCx no growth@ 24H. - O2 as needed #Leukocytosis Likely secondary to reactive process versus underlying infection Patient's Pro-Srinivas 0.08 and no fever recorded while in the ED Plan: - Bcx no growth at 24H. 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 Andersen Case discussed with my attending Dr. Lui sFernando Brown, DO PGY 1
[2025-05-19] MEDS: RINGERS LACTATED 1000 ML 1,000 ML 150 ML IV (11:20)
--- NOTE | 2025-05-19 11:47 | PD.IDPROG ---
Subjective Subjective Interval history: asked to see, likely more for wbc than anything else. pt not seen. hx noted no description of necrotizing pancreatitis noted. bc neg at 24h Exam Vital Signs Temp Pulse Resp BP Pulse Ox O2 Del Method O2 Flow Rate 98.1 F 98 18 146/81 H 94 L Room Air 4 05/19/25 08:00 05/19/25 08:00 05/19/25 08:00 05/19/25 08:00 05/19/25 08:00 05/19/25 08:00 05/18/25 14:00 Narrative Exam not seen. data reviewed Objective - Internal Medicine Labs 05/19/25 04:20 05/19/25 04:20 Labs: Laboratory Results - last 24 hr 05/18/25 05/18/25 05/19/25 12:56 19:41 04:20 WBC 38.9 H* D RBC 4.08 Hgb 12.7 Hct 36.0 MCV 88 MCH 31.1 MCHC 35.3 RDW Std Deviation 46.5 H Plt Count 262 D Neut % (Auto) 88 H Lymph % (Auto) 3 L [place] % (Auto) 7 Eos % (Auto) 0 Baso % (Auto) 0 Neut # (Auto) 34.2 H Lymph # (Auto) 1.0 [place] # (Auto) 2.9 H Eos # (Auto) 0.0 Baso # (Auto) 0.1 Immature Gran # (Auto) 0.80 H Absolute Nucleated RBC 0.00 Immature Gran % 2 H Nucleated RBC % 0 Smear Path Review Sent to Pathologist PT 12.0 INR 1.1 APTT 26.0 Sodium 136 136 Potassium 3.6 3.2 L Chloride 101 98 Carbon Dioxide 23.7 24.9 Anion Gap 11 13 BUN 9 5 L Creatinine 0.7 0.7 Estim Creat Clear Calc 104.0 105.9 eGFR > 60 > 60 BUN/Creatinine Ratio 13 7 L Glucose 148 H D [address] Glu mg/dL 114 Hemoglobin A1c 5.6 Calculated Osmolality 273 L 271 L Calcium 8.1 L 7.7 L Corrected Calcium 8.1 L 7.9 L Phosphorus 1.7 L 1.5 L Magnesium 1.4 L 1.5 L Total Bilirubin 1.8 H D 1.4 H AST 350 H 116 H ALT 707 H* 436 H Alkaline Phosphatase 119 H 101 C-Reactive Prot, Quant 3.5 H Total Protein 6.6 6.0 Albumin 4.2 3.7 D Globulin 2.4 2.3 Albumin/Globulin Ratio 1.8 1.6 Triglycerides 72 Cholesterol 194 LDL Cholesterol, Calc 103 HDL Cholesterol 77 H Cholesterol/HDL Ratio 2.5 L Amylase 928 H* Lipase 1265 H* D 401 H D Assessment & Plan A&P Narrative pancreatitis leucocytosis recent shemar noted if pancreatitis is necrotizing, then zosyn if preferre for 5 days it is broader than merrem and most experts suggest that the one study by the primaxin maty suggested only that a 5d of a broad agent reduced the risk of abscess but did not eliminate it. I will see formally on wednesday Time Spent With Patient Time: Total time spent is greater than 50% in coordination of care (as documented) at patient's floor/unit and/or counseling patient:
[2025-05-19 11:56] LABS: Lactate (Lactic Acid) 2.1 mMol/L (0.4-2.0)
[2025-05-19 12:00] VITALS: BP 145/96; PULSE 115; PULSE 89; RESP 18; TEMP 36.6; O2SAT 94
--- NOTE | 2025-05-19 12:19 | PD.RESCONSUL ---
HPI Data of Consult Patient: new to practice Consult date: 05/19/25 Requesting Physician: Rosa Mckinney MD Admitting Provider: Rosa Mckinney MD Attending Provider: Shay Garzon MD Primary Care Provider: Physician No Primary/Family Consult Narrative Reason for consult: ICU upgrade History of present illness: Ms. Melvin is a 44-year-old female with past medical history of recent cholecystectomy done outpatient by general surgery who presented to [facility] department on May 18, 2025 with a chief complaint of abdominal pain. Patient reported that she had cholecystectomy done by general surgeon on 17 May 2025, reported that she has not been well since, reports significant abdominal pain radiating to back, also complains of fever/chills. Patient on bedside today reported that her pain is 10/10 and the only medication that is working for her is Dilaudid. Patient seems to be in significant distress and pain and her pain is not relieved on current pain regimen. Patient also noted to be tachycardic, blood pressure within normal limits, MAP greater than 65. Patient was admitted to the hospital for acute pancreatitis. Otherwise patient reports that she was having episodic pain for 3 weeks prior to surgery, on review of labs triglycerides noted to be within normal limits, patient not on any culprit medications at home, noted to be hypocalcemic no hypercalcemia noted, gallbladder ultrasound from 05/17 prior to surgery did show cholelithiasis, the CT abdomen pelvis showed acute pancreatitis on 05/17. MRCP obtained on 05/18 shows mild postop free fluid in abdomen and no CBD stones were noted. Patient also received a HIDA scan on 05/18 which was not suggestive for any findings of CBD obstruction. Otherwise on labs significant leukocytosis noted, chemistry showed hypomagnesemia and hypophosphatemia which was repleted by primary team. Elevated lipase of 1265 noted on labs from 05/18. ICU team consulted for possible upgrade to ICU. 05/19: Patient postop reported that she has not had a bowel movement, we will obtain abdominal x-ray though we recommend NG tube with low intermittent suctioning for bowel distention. We recommending changing the pain regimen to control patient's pain better, patient is agreeable to NG tube placement, consider suctioning for at least 3 hours, continue bowel rest, continue IV fluids. Patient currently does not need an ICU upgrade and can be managed adequately on telemetry. 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 Conversational. HEENT: Normocephalic, atraumatic, mucous membranes moist. Heart: Sinus tachycardia, no murmurs. Lungs: Clear to auscultation with no wheezing or crackles. Abdomen: Soft, obese, generalized tenderness, nondistended, no bowel sounds. Midline umbilical healing scar noted,?no guarding or rebound tenderness. Neurologic: Alert and oriented x3, no gross neurological deficit, and patient able to move all 4 extremities. Extremities: No edema. Skin: No rash or ecchymoses. Results Labs 05/22/25 04:08 05/22/25 04:08 Labs: Short CBC 05/19/25 Range/Units 04:20 WBC 38.9 H* D (3.6-11.0) Thou/mm3 Hgb 12.7 (12.0-16.0) g/dL Hct 36.0 (36.0-46.0) % Plt Count 262 D (140-440) Thou/mm3 BMP 05/18/25 05/19/25 12:56 04:20 Sodium 136 136 Potassium 3.6 3.2 L Chloride 101 98 Carbon Dioxide 23.7 24.9 BUN 9 5 L Creatinine 0.7 0.7 Glucose 148 H D 129 H Calcium 8.1 L 7.7 L Liver Function 05/18/25 05/19/25 Range/Units 12:56 04:20 Total Bilirubin 1.8 H D 1.4 H (0.3-1.2) mg/dL AST 350 H 116 H (0-34) U/L ALT 707 H* 436 H (10-49) U/L Alkaline Phosphatase 119 H 101 (46-116) U/L Albumin 4.2 3.7 D (3.5-5.0) gm/dL Quality Measures Quality Measures none Medications Home Medications and Allergies Home Medications ?Medication ?Instructions ?Recorded ?Confirmed ?Type turmeric 1 cap PO DAILY 05/18/25 05/18/25 History Allergies Allergy/AdvReac Type Severity Reaction Status Date / Time NKA Allergy Unknown Uncoded 05/18/25 21:12 Visit Medications Acetaminophen (Acetaminophen 325 Mg Tablet) 650 mg PO Q6H PRN PRN Reason: PAIN SCALE 1-3 (mild Stop: 06/17/25 19:28 Hydrocodone Bitart/Acetaminophen (Hydrocodone/Apap 5/325 Tablet) 1 tab PO Q6HR PRN PRN Reason: Pain 4-6 Stop: 05/23/25 19:32 Last Admin: 05/19/25 04:40 Dose: 1 tab Enoxaparin Sodium (Enoxaparin Sod Inj 40 Mg/0.4 Ml Syringe) 40 mg SC QDAY [facility] Stop: 06/02/25 08:59 Last Admin: 05/19/25 08:11 Dose: 40 mg Hydromorphone HCl (Hydromorphone Inj 2 Mg/Ml Vial) 1 mg IVP Q4HR PRN PRN Reason: Pain 7-10 Stop: 05/24/25 09:19 Last Admin: 05/19/25 11:44 Dose: 1 mg Potassium Phosphate (Pot Phos 15 Mmol In Ns 250 Ml) 15 mmol in 250 mls @ 62.5 mls/hr IV Q4H [facility] Stop: 05/19/25 16:59 Last Admin: 05/19/25 10:12 Dose: 62.5 mls/hr Meropenem 1,000 mg/ Sodium (Chloride) 50 mls @ 100 mls/hr IV Q8HR [facility] Stop: 05/26/25 07:44 Last Infusion: 05/19/25 11:38 Dose: Infused Lactated Ringer's (Lactated Ringers) 1,000 mls @ 150 mls/hr IV .Q6H40M [facility] Stop: 05/20/25 03:38 Last Admin: 05/19/25 11:20 Dose: 150 mls/hr Ondansetron HCl (Ondansetron Inj 2 Mg/Ml Inj 2 Ml) 4 mg IV Q4HR PRN; Protocol PRN Reason: NAUSEA OR VOMITING Stop: 06/17/25 02:43 Last Admin: 05/18/25 13:53 Dose: 4 mg Discontinued Medications Calcium Gluconate (Calcium Gluconate 10% Inj 1 Gm/10 Ml Vial) 1 gm IV X1 ONE Stop: 05/19/25 07:26 Dexamethasone Sodium Phosphate (Dexamethasone Sod Phos Inj 10 Mg/Ml Vial) 10 mg IVP X1 ONE Stop: 05/17/25 22:05 Last Admin: 05/17/25 22:15 Dose: 10 mg Diazepam (Diazepam Inj 5 Mg/Ml Vial 2 Ml) 5 mg IVP X1 ONE Stop: 05/18/25 03:09 Last Admin: 05/18/25 03:24 Dose: 5 mg Fentanyl Citrate (Fentanyl Cit Inj 50 Mcg/Ml Amp 2ml) 100 mcg IVP X1 ONE Stop: 05/18/25 00:03 Last Admin: 05/18/25 00:13 Dose: 100 mcg Hydromorphone HCl (Hydromorphone Inj 2 Mg/Ml Vial) 0.5 mg IVP Q3H PRN PRN Reason: pain Stop: 05/23/25 03:07 Last Admin: 05/18/25 16:55 Dose: 0.5 mg Hydromorphone HCl (Hydromorphone Inj 2 Mg/Ml Vial) 1 mg IVP NOW ONE Stop: 05/18/25 10:03 Last Admin: 05/18/25 10:12 Dose: 1 mg Hydromorphone HCl (Hydromorphone Inj 2 Mg/Ml Vial) 0.5 mg IVP Q6HR PRN PRN Reason: Pain 7-10 Stop: 05/23/25 19:28 Last Admin: 05/19/25 01:27 Dose: 0.5 mg Hydromorphone HCl (Hydromorphone Inj 2 Mg/Ml Vial) 0.5 mg IVP X1 ONE Stop: 05/18/25 21:53 Last Admin: 05/18/25 21:58 Dose: 0.5 mg Hydromorphone HCl (Hydromorphone Inj 2 Mg/Ml Vial) 1 mg IVP X1 ONE Stop: 05/19/25 02:37 Last Admin: 05/19/25 02:52 Dose: 1 mg Hydromorphone HCl (Hydromorphone Inj 2 Mg/Ml Vial) 0.5 mg IVP Q4HR PRN PRN Reason: Pain 7-10 Stop: 05/23/25 19:28 Last Admin: 05/19/25 06:37 Dose: 0.5 mg Hydromorphone HCl (Hydromorphone Inj 2 Mg/Ml Vial) 1 mg IVP X1 ONE Stop: 05/19/25 09:19 Last Admin: 05/19/25 09:23 Dose: 1 mg Lactated Ringer's (Lactated Ringers) 1,000 mls @ 500 mls/hr IV .Q2H ONE Stop: 05/18/25 02:09 Last Infusion: 05/18/25 03:02 Dose: Infused Piperacillin/Tazobactam/Dextrose (Zosyn) 3.375 gm in 50 mls @ 100 mls/hr IV X1 ONE Stop: 05/18/25 03:38 Last Infusion: 05/18/25 03:54 Dose: Infused Lactated Ringer's (Lactated Ringers) 1,000 mls @ 125 mls/hr IV .Q8H ONE Stop: 05/18/25 11:10 Last Infusion: 05/18/25 19:24 Dose: Infused Lactated Ringer's (Lactated Ringers) 1,000 mls @ 999 mls/hr IV .Q1H1M ONE Stop: 05/18/25 19:23 Last Admin: 05/18/25 19:25 Dose: 999 mls/hr Lactated Ringer's (Lactated Ringers) 1,000 mls @ 150 mls/hr IV .Q6H40M [facility] Stop: 05/19/25 14:29 Last Infusion: 05/18/25 19:46 Dose: 0 mls/hr Piperacillin/Tazobactam/Dextrose (Zosyn) 3.375 gm in 50 mls @ 100 mls/hr IV Q6HR [facility] Stop: 05/25/25 18:23 Last Admin: 05/19/25 05:10 Dose: 100 mls/hr Lactated Ringer's (Lactated Ringers) 1,000 mls @ 135 mls/hr IV .Q7H25M [facility] Stop: 05/19/25 17:42 Last Admin: 05/19/25 01:34 Dose: 135 mls/hr Magnesium Sulfate (Magnesium Sulfate Ivpb) 4 gm in 50 mls @ 12.5 mls/hr IV X1 ONE Stop: 05/19/25 09:07 Last Admin: 05/19/25 06:03 Dose: 12.5 mls/hr Sodium Phosphate 30 mmol/ (Sodium Chloride) 510 mls @ 62.5 mls/hr IV X1 ONE Stop: 05/19/25 13:18 Last Admin: 05/19/25 07:10 Dose: Not Given Magnesium Sulfate (Magnesium Sulfate Ivpb) 4 gm in 50 mls @ 12.5 mls/hr IV X1 ONE Stop: 05/19/25 11:22 Calcium Gluconate/Sodium Chloride (Calcium Gluc/Ns 1000mg Ivpb) 1,000 mg in 50 mls @ 50 mls/hr IV X1 ONE Stop: 05/19/25 08:29 Last Admin: 05/19/25 09:00 Dose: 50 mls/hr Ketamine HCl (Ketamine 50 Mg/Ml Vial 10 Ml) 9 mg IVP NOW ONE Stop: 05/18/25 12:53 Last Admin: 05/18/25 13:13 Dose: 9 mg Ketorolac Tromethamine (Ketorolac Inj 30 Mg/Ml Vial) 30 mg IVP X1 ONE Stop: 05/18/25 02:03 Last Admin: 05/18/25 02:09 Dose: 30 mg Lorazepam (Lorazepam 0.5 Mg Tablet) 1 mg PO X1 ONE Stop: 05/18/25 10:20 Last Admin: 05/18/25 10:41 Dose: 1 mg Melatonin (Melatonin 3 Mg Tablet) 3 mg PO HS [facility] Stop: 06/17/25 20:59 Morphine Sulfate (Morphine Sulf Inj 10 Mg/Ml Vial) 5 mg IVP X1 ONE Stop: 05/17/25 22:05 Last Admin: 05/17/25 22:16 Dose: 5 mg Ondansetron HCl (Ondansetron Inj 2 Mg/Ml Inj 2 Ml) 4 mg IV X1 ONE; Protocol Stop: 05/17/25 22:05 Last Admin: 05/17/25 22:15 Dose: 4 mg Assessment & Plan Plan Assessment and Plan: Summary: Ms. Melvin is a 44-year-old female with past medical history of recent cholecystectomy done outpatient by general surgery who presented to [facility] department on May 18, 2025 with a chief complaint of abdominal pain. Patient admitted to the hospital for acute pancreatitis, had recent cholecystectomy done. ICU team consulted for possible ICU upgrade. #Acute pancreatitis #Elevated liver enzymes #Postoperative ileus #Severe Abdominal pain Patient had symptomatic cholelithiasis for which she underwent laparoscopic cholecystectomy 05/17 Patient admitted with significantly elevated lipase with significant generalized abdominal tenderness, complains of pain radiating to back. CT abdomen pelvis 05/17 shows acute pancreatitis MRCP 05/18 showed mild postop free fluid in the abdomen surrounding the pancreas but no common hepatic or common bile duct stones Gallbladder nuclear scan 05/18 shows no common bile duct obstruction and no biliary leak. In the ED, patient received roughly 4-5 L of IV LR, currently on maintenance along with IV Dilaudid for pain management Plan: Continue IV maintenance fluid Optimize pain regimen, increase the dose of Dilaudid Obtain abdominal x-ray Insert NG tube, suction for at least 2 to 3 hours Consider naloxegol/neostigmine for postop ileus Patient currently has no indication to be upgraded to the intensive care unit #Leukocytosis #Electrolyte abnormalities #Marijuana use disorder #Nicotine dependence - Management as per primary team Case discussed with Attending Physician Dr. Shay Samuel MD Internal Medicine PGY-2 Disclaimer: This note was dictated by speech recognition. Minor errors in customer solutions architect may be present due to voice recognition software. Attending Provider Attestation/Addendum Patient seen and examined with the above resident, Mariel Samuel MD. I agree with the findings, assessment, and plan of care as documented. No ICU needs at this time. Suggestions for management of pancreatitis and associated ileus as per above. Remain available should any needs arise. Counseled patient at bedside on plan of care as suggeste dby ICU team and discussed with medicine. Surgery aware as well.
[2025-05-19 13:21] LABS: Base Excess, Venous 3 (-3-3); O2 Saturation, Venous 67 % (96-97); PCO2, Venous 32 mmHg (36-56); PO2, Venous 30 mmHg (15-58); pH, Venous 7.51 (7.33-7.66)
[2025-05-19 13:22] LABS: Lactate (Lactic Acid) 1.7 mMol/L (0.4-2.0)
[2025-05-19 13:27] LABS: Basophils # (Auto) 0.1 Thou/mm3 (0.0-0.2); Basophils % (Auto) 0 % (0-2.5); Eosinophils # (Auto) 0.1 Thou/mm3 (0.0-0.5); Eosinophils % (Auto) 0 % (0-10); Hematocrit 36.0 % (36.0-46.0); Hemoglobin 12.8 g/dL (12.0-16.0); Immature Granulocytes Auto 1.52 Thou/mm3 (0.00-0.00); Lymphocytes # (Auto) 0.8 Thou/mm3 (1.0-4.8); Lymphocytes % (Auto) 2 % (10-50); Mean Corpuscular HGB Conc 35.6 g/dl (31.0-37.0); Mean Corpuscular Hemoglobin 31.6 pg (25.0-35.0); Mean Corpuscular Volume 89 fL (80-100); Monocytes # (Auto) 2.9 Thou/mm3 (0.0-0.8); Monocytes % (Auto) 8 % (0-12); Neutrophils # (Auto) 33.1 Thou/mm3 (1.8-7.7); Neutrophils % (Auto) 86 % (37-80); Nucleated Red Blood Cell # 0.00 Thou/mm3 (0.00-0.00); Nucleated Red Blood Cell % 0 /100 WBC (0); Platelet Count 235 Thou/mm3 (140-440); RDW Standard Deviation 46.5 fL (36.4-46.3); Red Blood Count 4.05 Miln/mm3 (4.00-5.20)
[2025-05-19 13:31] LABS: White Blood Count 38.5 Thou/mm3 (3.6-11.0)
[2025-05-19 14:16] LABS: Alanine Aminotransferase 347 U/L (10-49); Albumin, Serum 3.6 gm/dL (3.5-5.0); Albumin/Globulin Ratio 1.6 (1.2-2.2); Alkaline Phosphatase 102 U/L (46-116); Anion Gap 12 (7-16); Aspartate Amino Transferase 73 U/L (0-34); BUN/Creatinine Ratio 8 Ratio (12-20); Bilirubin,Total 1.2 mg/dL (0.3-1.2); Blood Urea Nitrogen < 5 mg/dL (9-23); Calcium 7.6 mg/dL (8.3-10.6); Calcium (Corrected) 7.9 mg/dL (8.5-10.1); Carbon Dioxide 22.3 mMol/L (20.0-31.0); Chloride 100 mMol/L (98-107); Creatinine (Component) 0.6 mg/dL (0.6-1.3); Estimated Creatinine Clearance 123.5 mL/min (>60); Globulin 2.3 gm/dL (2.3-3.5); Glucose 125 mg/dL (74-106); Osmolality,Calculated 266 (275-295); Potassium 3.7 mMol/L (3.4-5.1); Procalcitonin 0.59 ng/ml (0.0-0.49); Sodium 134 mMol/L (136-145); Total Protein 5.9 gm/dL (5.7-8.2); eGFR > 60 See Note
[2025-05-19 14:52] LABS: Reflex Lactate? Y
--- NOTE | 2025-05-19 14:56 | EKG_ITS ---
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
[2025-05-19 15:07] LABS: Magnesium 2.3 mg/dL (1.6-2.6); Phosphorous 1.6 mg/dL (2.4-5.1)
[2025-05-19 15:26] LABS: Lactic Acid, 3 HR 1.2 mMol/L (0.4-2.0)
[2025-05-19] MEDS: FAMOTIDINE INJ 10 MG/ML VIAL 2 ML 40 MG IVP (15:57)
[2025-05-19] MEDS: RINGERS LACTATED 1000 ML 1,000 ML 170 ML IV ×2 (15:58→21:55)
[2025-05-19 16:00] VITALS: BP 149/93; PULSE 121; PULSE 122; RESP 18; TEMP 37.2; O2SAT 94
--- NOTE | 2025-05-19 16:13 | XR_ITS ---
Examination: AP chest single view TECHNIQUE: AP upright portable chest single view Date and time client May 19, 2025, 1628 hours INDICATIONS: Orogastric tube placement. FINDINGS: Orogastric tube tip distal stomach versus the duodenum Pneumonia left base Bibasilar subsegmental atelectasis. Normal heart size. No pulmonary edema IMPRESSION: Orogastric tube tip distal stomach versus duodenum Pneumonia left base
[2025-05-19 16:27] LABS: Path Review Blood Smear Sent to Pathologist
[2025-05-19] MEDS: KETOROLAC INJ 30 MG/ML VIAL 15 MG IVP ×2 (17:05→22:55)
--- NOTE | 2025-05-19 18:45 | PD.IMCONS ---
HPI Data of Consult Requesting Physician: Rosa Mckinney MD Primary Care Provider: Physician No Primary/Family Consult Narrative Reason for consult: Fever leukocytosis History of present illness: 44 years old female came to the emergency room for pain abdomen fever chills She was found to have a lipase of greater than 200 CT scan of the abdomen pelvis with contrast on 05/17/2025 showed acute pancreatitis with edema and Yoseph pancreatic inflammatory changes MRCP negative for choledocholithiasis An elevated white count of 38.9 with a WBC count of 12.7 at 36.0 HIDA scan negative for any bile leak patient on Zosyn cc:: cc: Rosa Mckinney MD Past Medical History Surgical History OTHER SURGICAL HX: As in the history of present illness Meds Home Medications and Allergies Home Medications ?Medication ?Instructions ?Recorded ?Confirmed ?Type ranitidine HCl 75 mg tablet 100 mg PO PRN PRN GERD #0 tabs 04/10/15 05/18/25 History (Zantac) turmeric 1 cap PO DAILY 05/18/25 05/18/25 History Allergies Allergy/AdvReac Type Severity Reaction Status Date / Time NKA Allergy Unknown Uncoded 05/18/25 21:12 Exam Vital Signs Temp Pulse Resp BP Pulse Ox O2 Del Method O2 Flow Rate 99.0 F 121 H 18 149/93 H 94 L Room Air 4 05/19/25 16:00 05/19/25 16:00 05/19/25 16:00 05/19/25 16:00 05/19/25 16:00 05/19/25 16:00 05/18/25 14:00 Constitutional Comments: Alert oriented Routine Abdominal Exam Comments: Midepigastric tenderness Results Labs 05/19/25 12:58 05/19/25 12:58 Labs: Short CBC 05/19/25 05/19/25 Range/Units 04:20 12:58 WBC 38.9 H* D 38.5 H* (3.6-11.0) Thou/mm3 Hgb 12.7 12.8 (12.0-16.0) g/dL Hct 36.0 36.0 (36.0-46.0) % Plt Count 262 D 235 (140-440) Thou/mm3 BMP 05/19/25 05/19/25 04:20 12:58 Sodium 136 134 L Potassium 3.2 L 3.7 D Chloride 98 100 Carbon Dioxide 24.9 22.3 BUN 5 L < 5 L Creatinine 0.7 0.6 Glucose 129 H 125 H Calcium 7.7 L 7.6 L Liver Function 05/19/25 05/19/25 Range/Units 04:20 12:58 Total Bilirubin 1.4 H 1.2 (0.3-1.2) mg/dL AST 116 H 73 H (0-34) U/L ALT 436 H 347 H (10-49) U/L Alkaline Phosphatase 101 102 (46-116) U/L Albumin 3.7 D 3.6 (3.5-5.0) gm/dL ABG Interpretation ABG results: 05/19/25 12:58 VBG pH 7.51 VBG pCO2 32 L VBG pO2 30 VBG Base Excess 3 Assessment and Plan Additional Assessment & Plan Additional Plan: Pain abdomen secondary to acute pancreatitis most likely passage of CBD stone no evidence of choledocholithiasis or bile leak Plan Continue IV antibiotics NGT to intermittent suction PAPI Triglycerides level Repeat amylase and lipase Will follow the patient Thank you very much for the opportunity to participate in the care of this patient
[2025-05-19 20:00] VITALS: BP 139/89; PULSE 117; PULSE 133; RESP 23; TEMP 36.8; O2SAT 99
[2025-05-20] VITALS (9 sets, daily range): BP systolic 139–149; BP diastolic 71–90; PULSE 104–115; RESP 15–20; TEMP 36.7–36.9; O2SAT 95–99
[2025-05-20] MEDS: HYDROmorphone INJ 2 MG/ML VIAL 1 MG IVP ×5 (00:49→21:20)
[2025-05-20] MEDS: RINGERS LACTATED 1000 ML 1,000 ML 170 ML IV (03:53)
[2025-05-20] MEDS: MEROPENEM INJ 1,000 MG in SODIUM CHLORIDE 0.9% (Popper) 50 ML 100 MG IV ×3 (05:18→21:20)
[2025-05-20] MEDS: KETOROLAC INJ 30 MG/ML VIAL 15 MG IVP ×4 (05:19→23:25)
[2025-05-20 06:14] LABS: Basophils # (Auto) 0.1 Thou/mm3 (0.0-0.2); Basophils % (Auto) 0 % (0-2.5); Eosinophils # (Auto) 0.0 Thou/mm3 (0.0-0.5); Eosinophils % (Auto) 0 % (0-10); Hematocrit 33.2 % (36.0-46.0); Hemoglobin 11.4 g/dL (12.0-16.0); Immature Granulocytes Auto 0.44 Thou/mm3 (0.00-0.00); Lymphocytes # (Auto) 0.8 Thou/mm3 (1.0-4.8); Lymphocytes % (Auto) 3 % (10-50); Mean Corpuscular HGB Conc 34.3 g/dl (31.0-37.0); Mean Corpuscular Hemoglobin 30.9 pg (25.0-35.0); Mean Corpuscular Volume 90 fL (80-100); Monocytes # (Auto) 2.6 Thou/mm3 (0.0-0.8); Monocytes % (Auto) 9 % (0-12); Neutrophils # (Auto) 26.6 Thou/mm3 (1.8-7.7); Neutrophils % (Auto) 87 % (37-80); Nucleated Red Blood Cell # 0.00 Thou/mm3 (0.00-0.00); Nucleated Red Blood Cell % 0 /100 WBC (0); Platelet Count 236 Thou/mm3 (140-440); RDW Standard Deviation 48.7 fL (36.4-46.3); Red Blood Count 3.69 Miln/mm3 (4.00-5.20); White Blood Count 30.6 Thou/mm3 (3.6-11.0)
[2025-05-20 06:16] LABS: INR 1.1 (0.9-1.3); Partial Thromboplastin Time 37.0 Seconds (22.0-36.0); Prothrombin Time 12.2 Seconds (9.0-12.2)
[2025-05-20 06:35] LABS: Alanine Aminotransferase 232 U/L (10-49); Albumin, Serum 3.3 gm/dL (3.5-5.0); Albumin/Globulin Ratio 1.4 (1.2-2.2); Alkaline Phosphatase 99 U/L (46-116); Amylase 204 U/L (30-118); Anion Gap 9 (7-16); Aspartate Amino Transferase 36 U/L (0-34); BUN/Creatinine Ratio 14 Ratio (12-20); Bilirubin,Total 1.1 mg/dL (0.3-1.2); Blood Urea Nitrogen 7 mg/dL (9-23); Calcium 7.7 mg/dL (8.3-10.6); Calcium (Corrected) 8.3 mg/dL (8.5-10.1); Carbon Dioxide 25.7 mMol/L (20.0-31.0); Cardiac Risk Estimate 3.0 RATIO (3.7-5.6); Chloride 102 mMol/L (98-107); Cholesterol 139 mg/dL (132-200); Creatinine (Component) 0.5 mg/dL (0.6-1.3); Estimated Creatinine Clearance 148.2 mL/min (>60); Globulin 2.3 gm/dL (2.3-3.5); Glucose 122 mg/dL (74-106); HDL Cholesterol 47 mg/dL (40-60); LDL Cholesterol,Calculated 75 mg/dL (0-130); Lipase 66 U/L (12-53); Magnesium 2.0 mg/dL (1.6-2.6); Osmolality,Calculated 272 (275-295); Potassium 3.4 mMol/L (3.4-5.1); Sodium 137 mMol/L (136-145); Total Protein 5.6 gm/dL (5.7-8.2); Triglycerides 87 mg/dL (30-150); eGFR > 60 See Note
[2025-05-20 06:41] LABS: Phosphorous 0.9 mg/dL (2.4-5.1)
[2025-05-20] MEDS: POT PHOS 15 mMol in NS 250 ML 15 MMOL/250 ML BAG 62.5 MMOL IV ×2 (07:52→14:16)
[2025-05-20] MEDS: ENOXAPARIN SOD INJ 40 MG/0.4 ML SYRINGE SC (09:00)
--- NOTE | 2025-05-20 09:00 | XR_ITS ---
Examination: CT abdomen with intravenous contrast CT pelvis with intravenous contrast 2-D coronal reconstructions 2-D sagittal reconstructions Date and time of exam:May 20, 2025, 0937 hrs. Indications: Onset mid abdominal pain today, acute pancreatitis on CT study May 17, 2025. CTDI: vol (mGy) 12.5 DLP: (mGycm) 736. Technique: Multiple axial sections of the abdomen and pelvis have been obtained. 64 slice high-resolution scanner used. 3 mm axial sections have been obtained, post intravenous injection 60 cc [id number] 2-D sagittal, coronal reconstructions obtained. Low dose protocols were performed. One or more of the following dose reduction techniques were used; automated exposure control, adjustment of the mA and/or KV according to patient size, use of iterative reconstruction technique. Findings: Pneumonia left base with small left pleural effusion Mild enlargement cardiac contour Fatty infiltration throughout the liver Absent gallbladder Spleen is not enlarged Again noted acute pancreatitis more pronounced edema No pseudocyst Orogastric tube in the stomach Mucosal thickening in the stomach No hydronephrosis No bowel obstruction Absent appendix Colonic diverticulosis Free fluid in the abdomen and pelvis Urinary bladder contracted around a Ramos catheter Anteverted uterus Impression: Pneumonia left base with small left pleural effusion Worsening acute pancreatitis, no pseudocyst
[2025-05-20] MEDS: RINGERS LACTATED 1000 ML 1,000 ML 150 ML IV ×2 (10:17→16:43)
--- NOTE | 2025-05-20 11:33 | PC.SS ---
Patient is a 44YO female, reason visit: PANCREATITIS. Initial assessment completed at bedside with patient. Role and purpose of today?s contact explained to patient. Patient confirmed her demographic information. Patient stated her primary medical surrogate decision maker is her parent, Hawa Rosenthal [phone]. Patient stated is independent with both ADL completion and ambulation as well. Pharmacy: [facility] [place] [facility]. PCP: Dr. Rosas, patient unable to recall last appt. Discharge plan: Home, family to transport. Next of kin: Parent Hawa Rosenthal [phone]
--- NOTE | 2025-05-20 15:53 | ESPR_ITS ---
<Statement entered by Singh Gould MD - 05/25/25 07:33> I reviewed above note and agree with findings and plans. I have also personally examined the patient with medicine team and went over assessment and plan with medical team including financial internship and resident physician. <Statement entered by Tae Yeh MD - 05/20/25 16:26> Patient seen and examined at bedside. I discussed and supervised with the financial internship physician who took care of this patient. I personally saw and examined the patient. I agree with most of the assessment and plan. Patient continues to endorse, pain and low appetite, no flatus or BM. Repeat CT showed worsening edema around pancreas, but no pancreatic pseudocyst or signs of necrosis. Lipase trending down. Continue with IVF, pain management, and NG to LIS. Plan of care discussed with attending Dr. Luis Fernando Yeh MD PGY-2 Documentation for date of: 05/20/25 Subjective Subjective Interval history: No overnight events. Evaluated at bedside. WBC, lipase, amylase, and LFTs downtrending. Pt reports no BM or passing gas, however states improvement of abdominal pain. NG tube in place. Clinically improving. CT A/P shows Pneumonia left base with small left pleural effusion, worsening acute pancreatitis, no pseudocyst. D/C [place] PRN since pt complains that norco makes pain worse. Exam Vital Signs Temp Pulse Resp BP Pulse Ox O2 Del Method O2 Flow Rate 98.1 F 105 H 15 148/88 H 96 Room Air 4 05/20/25 11:55 05/20/25 12:00 05/20/25 11:55 05/20/25 11:55 05/20/25 11:55 05/20/25 07:24 05/20/25 00:00 Narrative Exam General: Well appearing, well nourished, in no distress. Oriented x 3, normal mood and affect . Ambulating without difficulty. Skin: Good turgor. Surgical sites and port sites clean, dry and intact. Heart: No cardiomegaly or thrills; regular rate and rhythm, no murmur or gallop Lungs: Clear to auscultation and percussion. No rales, wheeze, or rhonchi Abdomen: No BM/passing gas since 05/17. Improvement of pain from yesterday, no guarding, non distended. Back: Spine normal without deformity or tenderness, no CVA tenderness Extremities: No amputations or deformities, cyanosis, edema or varicosities, peripheral pulses intact Musculoskeletal: Normal gait and station. No misalignment, asymmetry, crepitation, defects, tenderness, masses, effusions, decreased range of motion, instability, atrophy or abnormal strength or tone in the head, neck, spine, ribs, pelvis or extremities. Objective Labs 05/20/25 04:42 05/20/25 04:42 Labs: Laboratory Results - last 24 hr 05/19/25 05/20/25 12:58 04:42 WBC 30.6 H D RBC 3.69 L Hgb 11.4 L Hct 33.2 L MCV 90 MCH 30.9 MCHC 34.3 RDW Std Deviation 48.7 H Plt Count 236 Neut % (Auto) 87 H Lymph % (Auto) 3 L [place] % (Auto) 9 Eos % (Auto) 0 Baso % (Auto) 0 Neut # (Auto) 26.6 H Lymph # (Auto) 0.8 L [place] # (Auto) 2.6 H Eos # (Auto) 0.0 Baso # (Auto) 0.1 Immature Gran # (Auto) 0.44 H Absolute Nucleated RBC 0.00 Immature Gran % 1 H Nucleated RBC % 0 Smear Path Review Sent to Pathologist PT 12.2 INR 1.1 APTT 37.0 H D Sodium 137 Potassium 3.4 Chloride 102 Carbon Dioxide 25.7 Anion Gap 9 BUN 7 L Creatinine 0.5 L Estim Creat Clear Calc 148.2 eGFR > 60 BUN/Creatinine Ratio 14 Glucose 122 H Calculated Osmolality 272 L Calcium 7.7 L Corrected Calcium 8.3 L Phosphorus 0.9 L* Magnesium 2.0 Total Bilirubin 1.1 AST 36 H ALT 232 H Alkaline Phosphatase 99 Total Protein 5.6 L Albumin 3.3 L Globulin 2.3 Albumin/Globulin Ratio 1.4 Triglycerides 87 Cholesterol 139 LDL Cholesterol, Calc 75 HDL Cholesterol 47 Cholesterol/HDL Ratio 3.0 L Amylase 204 H Lipase 66 H D ABG Interpretation ABG results: 05/19/25 12:58 VBG pH 7.51 VBG pCO2 32 L VBG pO2 30 VBG Base Excess 3 Quality Measures Quality Measures none Assessment & Plan Assessment Current Active Medications: Generic Name Dose Route Start Last Admin Trade Name Freq PRN Reason Stop Dose Admin Acetaminophen 650 mg 05/18/25 19:29 Acetaminophen 325 Mg Tablet PO 06/17/25 19:28 Q6H PRN PAIN SCALE 1-3 (mild Enoxaparin Sodium 40 mg 05/19/25 09:00 05/20/25 09:00 Enoxaparin Sod Inj 40 Mg/0.4 Ml Syringe SC 06/02/25 08:59 40 mg QDAY VICTOR HUGO Administration Hydromorphone HCl 1 mg 05/19/25 09:20 05/20/25 13:24 Hydromorphone Inj 2 Mg/Ml Vial IVP 05/24/25 09:19 1 mg Q4HR PRN Administration Pain 7-10 Meropenem 1,000 mg/ Sodium 50 mls @ 100 mls/hr 05/19/25 07:45 05/20/25 14:15 Chloride IV 05/26/25 07:44 100 mls/hr Q8HR VICTOR HUGO Administration Lactated Ringer's 1,000 mls @ 150 mls/hr 05/20/25 09:19 05/20/25 10:17 Lactated Ringers IV 05/20/25 22:38 150 mls/hr .Q6H40M VICTOR HUGO Administration Ketorolac Tromethamine 15 mg 05/19/25 18:50 05/20/25 15:37 Ketorolac Inj 30 Mg/Ml Vial IVP 05/24/25 18:49 15 mg Q6HR PRN Administration Pain 4-6 Ondansetron HCl 4 mg 05/18/25 02:44 05/18/25 13:53 Ondansetron Inj 2 Mg/Ml Inj 2 Ml IV 06/17/25 02:43 4 mg Q4HR PRN Administration NAUSEA OR VOMITING Protocol Plan 44-year-old female with 2 C-sections, appendectomy, tubal ligation, very recent cholecystectomy presenting to the ED on 05/17 with abdominal pain will be admitted for management of acute gallstone pancreatitis and will be treated with IV fluid resuscitation, IV pain medicine along with workup for possible underlying infection with blood cultures and IV antibiotics. Pending final BCx. ID to follow on Wednesday. #Acute pancreatitis #Elevated liver enzymes - downtrending Presenting with subjective fevers, abdominal pain. Denies alcohol use, TG87 not elevated, s/p lap shemar on 05/17 for symptomatic cholelithiasis. On initial encounter in ED, patient has tenderness to palpation on upper quadrants of the abdomen along with elevated lipase CT abdomen pelvis on 05/17 shows acute pancreatitis MRCP on 05/18 showed mild postop free fluid in the abdomen surrounding the pancreas but no common hepatic or common bile duct stones Gallbladder nuclear scan on 05/18 no common bile duct obstruction and no biliary leak. In the ED, patient received roughly 4-5 L of IV LR, received IV Dilaudid for pain management CT A/P on 05/20 shows pneumonia left base with small left pleural effusion, worsening acute pancreatitis, no pseudocyst Plan: - Continue LR at a rate of 150mLs/hr - GI consult : recommends continue abx, NGT to intermittent suction. Lipase and amylase downtrending. - N.p.o., advance as tolerated - Multimodal pain management (IV Toradol 15mg PRN, Dilaudid 1mg PRN) #Post-op ileus #Abdominal distention Abdomen XR on 05/19 shows mild to moderate stool throughout the colon. Nonobstructive bowel gas pattern. CT A/P on 05/20 shows pneumonia left base with small left pleural effusion, worsening acute pancreatitis, no pseudocyst - Consider water enema to help pass bowel movement - NG inserted for gastric decompression, on intermittent suction - Continue to monitor pt for BM/passing gas #Leukocytosis - downtrending Likely secondary to reactive process versus underlying infection Patient's Pro-Srinivas 0.08 and no fever recorded while in the ED Plan: - Bcx no growth at 48H, pending final report - discontinued IV Zosyn, continue to Meropenem due to elevated WBC - ID consult : ID to follow on Monday 05/21. #Sinus Tachycardia - likely due to dehydration vs pain vs infection EKG Sinus tach at a rate of 120s. QTc 454 - Continue fluid resuscitation - Multimodal pain control - Monitor vital signs - Avoid QTc prolonging agents #Lactic acidosis, likely type B - downtrending Initial lactate 2.1. Consider infectious etiology. - Continue fluid resuscitation - BCx no growth@ 48H. 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 Yeh Case discussed with my attending Dr. Luis Fernando Champion Kevin, DO PGY 1
--- NOTE | 2025-05-20 19:19 | PD.IMPROG ---
Documentation for date of: 05/20/25 Subjective Subjective Interval history: WBC trending downwards LFTs trending downwards Abdominal pain improved NGT to intermittent suction Repeat CT scan does show more pancreatic edema which is not unusual Exam Vital Signs Temp Pulse Resp BP Pulse Ox O2 Del Method O2 Flow Rate 98.3 F 115 H 18 139/84 H 95 Room Air 4 05/20/25 15:53 05/20/25 16:00 05/20/25 15:53 05/20/25 15:53 05/20/25 15:53 05/20/25 15:53 05/20/25 00:00 Objective Labs 05/20/25 04:42 05/20/25 04:42 Labs: Laboratory Results - last 24 hr 05/20/25 04:42 WBC 30.6 H D RBC 3.69 L Hgb 11.4 L Hct 33.2 L MCV 90 MCH 30.9 MCHC 34.3 RDW Std Deviation 48.7 H Plt Count 236 Neut % (Auto) 87 H Lymph % (Auto) 3 L [place] % (Auto) 9 Eos % (Auto) 0 Baso % (Auto) 0 Neut # (Auto) 26.6 H Lymph # (Auto) 0.8 L [place] # (Auto) 2.6 H Eos # (Auto) 0.0 Baso # (Auto) 0.1 Immature Gran # (Auto) 0.44 H Absolute Nucleated RBC 0.00 Immature Gran % 1 H Nucleated RBC % 0 PT 12.2 INR 1.1 APTT 37.0 H D Sodium 137 Potassium 3.4 Chloride 102 Carbon Dioxide 25.7 Anion Gap 9 BUN 7 L Creatinine 0.5 L Estim Creat Clear Calc 148.2 eGFR > 60 BUN/Creatinine Ratio 14 Glucose 122 H Calculated Osmolality 272 L Calcium 7.7 L Corrected Calcium 8.3 L Phosphorus 0.9 L* Magnesium 2.0 Total Bilirubin 1.1 AST 36 H ALT 232 H Alkaline Phosphatase 99 Total Protein 5.6 L Albumin 3.3 L Globulin 2.3 Albumin/Globulin Ratio 1.4 Triglycerides 87 Cholesterol 139 LDL Cholesterol, Calc 75 HDL Cholesterol 47 Cholesterol/HDL Ratio 3.0 L Amylase 204 H Lipase 66 H D Impressions Impression: Acute biliary pancreatitis improving Leukocytosis improving Downtrending LFTs Improving abdominal pain Continue current management ABG Interpretation ABG results: 05/19/25 12:58 VBG pH 7.51 VBG pCO2 32 L VBG pO2 30 VBG Base Excess 3 Assessment & Plan A&P Narrative Pain abdomen secondary to acute pancreatitis most likely passage of CBD stone no evidence of choledocholithiasis or bile leak Plan Continue IV antibiotics NGT to intermittent suction PAPI Triglycerides level Repeat amylase and lipase Will follow the patient Thank you very much for the opportunity to participate in the care of this patient Time Spent With Patient Time: Total time spent is greater than 50% in coordination of care (as documented) at patient's floor/unit and/or counseling patient:
--- NOTE | 2025-05-20 19:45 | PC.NURSE ---
Patient ambulating in hallway tolerating well
[2025-05-21] VITALS (8 sets, daily range): BP systolic 138–156; BP diastolic 85–98; PULSE 84–114; RESP 16–19; TEMP 36.2–37.1; O2SAT 92–97; BMI 38.2
[2025-05-21] MEDS: HYDROmorphone INJ 2 MG/ML VIAL 1 MG IVP ×4 (02:26→22:35)
[2025-05-21] MEDS: KETOROLAC INJ 30 MG/ML VIAL 15 MG IVP ×3 (05:23→19:32)
[2025-05-21] MEDS: MEROPENEM INJ 1,000 MG in SODIUM CHLORIDE 0.9% (Popper) 50 ML 100 MG IV (05:27)
[2025-05-21 06:05] LABS: Basophils # (Auto) 0.1 Thou/mm3 (0.0-0.2); Basophils % (Auto) 0 % (0-2.5); Eosinophils # (Auto) 0.1 Thou/mm3 (0.0-0.5); Eosinophils % (Auto) 0 % (0-10); Hematocrit 30.4 % (36.0-46.0); Hemoglobin 10.4 g/dL (12.0-16.0); Immature Granulocytes Auto 0.29 Thou/mm3 (0.00-0.00); Lymphocytes # (Auto) 1.1 Thou/mm3 (1.0-4.8); Lymphocytes % (Auto) 5 % (10-50); Mean Corpuscular HGB Conc 34.2 g/dl (31.0-37.0); Mean Corpuscular Hemoglobin 30.7 pg (25.0-35.0); Mean Corpuscular Volume 90 fL (80-100); Monocytes # (Auto) 2.3 Thou/mm3 (0.0-0.8); Monocytes % (Auto) 10 % (0-12); Neutrophils # (Auto) 19.5 Thou/mm3 (1.8-7.7); Neutrophils % (Auto) 84 % (37-80); Nucleated Red Blood Cell # 0.00 Thou/mm3 (0.00-0.00); Nucleated Red Blood Cell % 0 /100 WBC (0); Platelet Count 232 Thou/mm3 (140-440); RDW Standard Deviation 47.9 fL (36.4-46.3); Red Blood Count 3.39 Miln/mm3 (4.00-5.20); White Blood Count 23.3 Thou/mm3 (3.6-11.0)
[2025-05-21 06:26] LABS: Alanine Aminotransferase 158 U/L (10-49); Albumin, Serum 3.6 gm/dL (3.5-5.0); Albumin/Globulin Ratio 1.6 (1.2-2.2); Alkaline Phosphatase 95 U/L (46-116); Anion Gap 12 (7-16); Aspartate Amino Transferase 24 U/L (0-34); BUN/Creatinine Ratio 20 Ratio (12-20); Bilirubin,Total 0.9 mg/dL (0.3-1.2); Blood Urea Nitrogen 8 mg/dL (9-23); Calcium 8.4 mg/dL (8.3-10.6); Calcium (Corrected) 8.7 mg/dL (8.5-10.1); Carbon Dioxide 27.6 mMol/L (20.0-31.0); Chloride 102 mMol/L (98-107); Creatinine (Component) 0.4 mg/dL (0.6-1.3); Estimated Creatinine Clearance 108.2 mL/min (>60); Globulin 2.3 gm/dL (2.3-3.5); Glucose 111 mg/dL (74-106); Magnesium 2.0 mg/dL (1.6-2.6); Osmolality,Calculated 282 (275-295); Phosphorous 1.4 mg/dL (2.4-5.1); Potassium 3.3 mMol/L (3.4-5.1); Sodium 142 mMol/L (136-145); Total Protein 5.9 gm/dL (5.7-8.2); eGFR > 60 See Note
[2025-05-21] MEDS: ENOXAPARIN SOD INJ 40 MG/0.4 ML SYRINGE SC (08:40)
[2025-05-21] MEDS: POT PHOS 15 mMol in NS 250 ML 15 MMOL/250 ML BAG 62.5 MMOL IV ×2 (08:40→13:11)
[2025-05-21 08:41] LABS: Amylase 62 U/L (30-118); Lipase 25 U/L (12-53)
--- NOTE | 2025-05-21 09:02 | PC.NURSE ---
Outcomes Analyst team in to assess pt, pt passing gas, team encouraging pt to walk and plans to start clear liquid diet and camp NG
--- NOTE | 2025-05-21 09:29 | ESPR_ITS ---
<Statement entered by Singh Gould MD - 05/26/25 12:37> I reviewed above note and agree with findings and plans. I have also personally examined the patient with medicine team and went over assessment and plan with medical team including internet salesperson and resident physician. <Statement entered by Tae Yeh MD - 05/21/25 15:10> Patient seen and examined at bedside. I discussed and supervised with the internet salesperson physician who took care of this patient. I personally saw and examined the patient. I agree with most of the assessment and plan. Patient seen ambulating without difficulty. Still denies BM, but has passed gas. Tolerated clear liquid diet well, advanced to full liquid. NG tube removed. Antibiotics changed to PO levaquin and flagyl, per ID recs. Added lisinopril 20mg for persistent HTN, will re-evaluate tomorrow. Plan of care discussed with attending Dr. Gould. Tae Yeh MD PGY-2 Documentation for date of: 05/21/25 Subjective Subjective Interval history: No overnight events. Evaluated at bedside. Pt reports significant improvement of pain. 600mL from NG tube. Pt reports passing gas last night, but did not have BM after enema. Advance diet to full liquid by dinner. D/C NG Tube. Clinically improving, amylase and lipase WNL. 1L LR maintenance fluid given. ID recommends switch to PO Flagyl and Levaquin. Exam Vital Signs Temp Pulse Resp BP Pulse Ox O2 Del Method O2 Flow Rate 97.8 F 93 16 156/93 H 92 L Room Air 4 05/21/25 07:58 05/21/25 07:58 05/21/25 07:58 05/21/25 07:58 05/21/25 07:58 05/21/25 07:58 05/20/25 00:00 Narrative Exam Narrative Exam General: Well appearing, well nourished, in no distress. Oriented x 3, normal mood and affect . Ambulating without difficulty. Skin: Good turgor. Surgical sites and port sites clean, dry and intact. Heart: No cardiomegaly or thrills; regular rate and rhythm, no murmur or gallop Lungs: Clear to auscultation and percussion. No rales, wheeze, or rhonchi Abdomen: No BM since 05/17, passed gas on 05/20. Improvement of pain from yesterday, no guarding, non distended. Back: Spine normal without deformity or tenderness, no CVA tenderness Extremities: No amputations or deformities, cyanosis, edema or varicosities, peripheral pulses intact Musculoskeletal: Normal gait and station. No misalignment, asymmetry, crepitation, defects, tenderness, masses, effusions, decreased range of motion, instability, atrophy or abnormal strength or tone in the head, neck, spine, ribs, pelvis or extremities. Objective Labs 05/21/25 04:59 05/21/25 04:59 Labs: Laboratory Results - last 24 hr 05/21/25 04:59 WBC 23.3 H D RBC 3.39 L Hgb 10.4 L Hct 30.4 L MCV 90 MCH 30.7 MCHC 34.2 RDW Std Deviation 47.9 H Plt Count 232 Neut % (Auto) 84 H Lymph % (Auto) 5 L [place] % (Auto) 10 Eos % (Auto) 0 Baso % (Auto) 0 Neut # (Auto) 19.5 H Lymph # (Auto) 1.1 [place] # (Auto) 2.3 H Eos # (Auto) 0.1 Baso # (Auto) 0.1 Immature Gran # (Auto) 0.29 H Absolute Nucleated RBC 0.00 Immature Gran % 1 H Nucleated RBC % 0 Sodium 142 Potassium 3.3 L Chloride 102 Carbon Dioxide 27.6 Anion Gap 12 BUN 8 L Creatinine 0.4 L Estim Creat Clear Calc 108.2 eGFR > 60 BUN/Creatinine Ratio 20 Glucose 111 H Calculated Osmolality 282 Calcium 8.4 Corrected Calcium 8.7 Phosphorus 1.4 L Magnesium 2.0 Total Bilirubin 0.9 AST 24 ALT 158 H Alkaline Phosphatase 95 Total Protein 5.9 Albumin 3.6 Globulin 2.3 Albumin/Globulin Ratio 1.6 Amylase 62 Lipase 25 D ABG Interpretation ABG results: 05/19/25 12:58 VBG pH 7.51 VBG pCO2 32 L VBG pO2 30 VBG Base Excess 3 Quality Measures Quality Measures VTE prophylaxis Assessment & Plan Assessment Current Active Medications: Generic Name Dose Route Start Last Admin Trade Name Freq PRN Reason Stop Dose Admin Acetaminophen 650 mg 05/18/25 19:29 Acetaminophen 325 Mg Tablet PO 06/17/25 19:28 Q6H PRN PAIN SCALE 1-3 (mild Enoxaparin Sodium 40 mg 05/19/25 09:00 05/21/25 08:40 Enoxaparin Sod Inj 40 Mg/0.4 Ml Syringe SC 06/02/25 08:59 40 mg QDAY VICTOR HUGO Administration Hydromorphone HCl 1 mg 05/19/25 09:20 05/21/25 08:40 Hydromorphone Inj 2 Mg/Ml Vial IVP 05/24/25 09:19 1 mg Q4HR PRN Administration Pain 7-10 Meropenem 1,000 mg/ Sodium 50 mls @ 100 mls/hr 05/19/25 07:45 05/21/25 06:06 Chloride IV 05/26/25 07:44 Infused Q8HR VICTOR HUGO Infusion Potassium Phosphate 15 mmol in 250 mls @ 62.5 mls/hr 05/21/25 07:41 05/21/25 08:40 Pot Phos 15 Mmol In Ns 250 Ml IV 05/21/25 15:40 62.5 mls/hr Q4H VICTOR HUGO Administration Ketorolac Tromethamine 15 mg 05/19/25 18:50 05/21/25 05:23 Ketorolac Inj 30 Mg/Ml Vial IVP 05/24/25 18:49 15 mg Q6HR PRN Administration Pain 4-6 Ondansetron HCl 4 mg 05/18/25 02:44 05/18/25 13:53 Ondansetron Inj 2 Mg/Ml Inj 2 Ml IV 06/17/25 02:43 4 mg Q4HR PRN Administration NAUSEA OR VOMITING Protocol Plan 44-year-old female with 2 C-sections, appendectomy, tubal ligation, very recent cholecystectomy presenting to the ED on 05/17 with abdominal pain will be admitted for management of acute gallstone pancreatitis and will be treated with IV fluid resuscitation, IV pain medicine along with workup for possible underlying infection with blood cultures and IV antibiotics. Pending final BCx. ID recommends switching meropenem to Flagyl and levaquin. #Post-op ileus #Abdominal distention Abdomen XR on 05/19 shows mild to moderate stool throughout the colon. Nonobstructive bowel gas pattern. CT A/P on 05/20 shows pneumonia left base with small left pleural effusion, worsening acute pancreatitis, no pseudocyst Trial of enema given 05/20, not much help with BM. Passed gas on 05/20. - Consider water enema to help pass bowel movement. - D/C NG tube. Advanced to full liquid diet. - Continue to monitor pt for BM. #Acute pancreatitis #Elevated liver enzymes - downtrending Presenting with subjective fevers, abdominal pain. Denies alcohol use, TG87 not elevated, s/p lap shemar on 05/17 for symptomatic cholelithiasis. On initial encounter in ED, patient has tenderness to palpation on upper quadrants of the abdomen along with elevated lipase CT abdomen pelvis on 05/17 shows acute pancreatitis MRCP on 05/18 showed mild postop free fluid in the abdomen surrounding the pancreas but no common hepatic or common bile duct stones Gallbladder nuclear scan on 05/18 no common bile duct obstruction and no biliary leak. In the ED, patient received roughly 4-5 L of IV LR, received IV Dilaudid for pain management CT A/P on 05/20 shows pneumonia left base with small left pleural effusion, worsening acute pancreatitis, no pseudocyst Plan: - GI consult : recommends continue abx, NGT to intermittent suction. Lipase and amylase downtrending. - N.p.o., advance as tolerated - Multimodal pain management (IV Toradol 15mg PRN, Dilaudid 1mg PRN) - ID consult : Continue antibiotics for 7d total (05/21 ~ 05/28), d/c meropenem, changed to po levaquin and flagyl. ok with going home. #Leukocytosis - downtrending Likely secondary to reactive process versus underlying infection Patient's Pro-Srinivas 0.08 and no fever recorded while in the ED Plan: - Bcx no growth at 48H, pending final report - ID consult : discontinued Meropenem, switched to flagyl and levaquin per ID. #Hypertension 05/21: BP 151/93. Pt denies to be in pain. Afebrile. - Start lisinoprol 20mg PO QD. - Continue to monitor BP - Outpt PCP follow up #Electrolyte abnormalities #Hypomagnesium #Hyponatremia #Hypocalcemia #Hypophophanemia Likely secondary to acutely ill status versus aggressive IV fluid resuscitation 05/19: Na 134, K 3.7, Ca 7.6, Phos 1.6, Mg 1.5 Repleted. 05/20: Phos 0.9. Repleted. 05/21: Phos 1.4. Repleted Plan: - Replete as necessary - Monitor with morning labs #Lactic acidosis, likely type B - resolved. Initial lactate 2.1. Consider infectious etiology. 1L LR maintenance fluid given 05/21 - Continue fluid resuscitation - BCx no growth@ 48H. - O2 as needed #Sinus Tachycardia - likely due to dehydration vs pain vs infection - resolved EKG Sinus tach at a rate of 120s. QTc 454 1L LR maintenance fluid given 05/21 - Continue fluid resuscitation. 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 Yeh Case discussed with my attending Dr. Luis Fernando Brown, PGY 1
--- NOTE | 2025-05-21 09:57 | PC.SS ---
SS rounding note; Advancing Diet, WBC elevated, patient is pending a bowl movement. SS will discharge home when medically cleared.
--- NOTE | 2025-05-21 10:09 | ESCONSULT_ITS ---
<Statement entered by Christiano Zavala MD - 05/23/25 15:09> pt seen. see other notes for details HPI Data of Consult Requesting Physician: Rosa Mckinney MD Admitting Provider: Rosa Mckinney MD Attending Provider: Rosa Mckinney MD Primary Care Provider: Physician No Primary/Family Consult Narrative History of present illness: Patient is a 44-year-old female with 2 C-sections, appendectomy, tubal ligation, and recent cholecystectomy who presented to the ED on 05/18/2025 with abdominal pain. Patient had laparoscopic cholecystectomy with general surgery one day prior on 05/17 and states that she woke up that evening with fever/chills and severe epigastric abdominal pain radiating to her back. In the ED, pertinent lab findings included WBC of 21.4, BUN 9, creatinine 0.7, glucose 148, lactic acid 1.9, corrected calcium of 8.1, T. bili 1.8, AST 350, ALT 707, alk phos 119, lipase initially at 2117 and down trended to 1265, Pro-Srinivas 0.08. CT abdomen/pelvis showed acute pancreatitis, MRCP showed mild postop free fluid in the abdomen surrounding the pancreas but no common hepatic or common bile duct stones, gallbladder nuclear scan showed no common bile duct obstruction and no biliary leak. Patient was admitted for management of acute gallstone pancreatitis and given IV fluid resuscitation, IV pain medicine along with workup for possible underlying infection with blood cultures and IV antibiotics. ID was consulted in the setting of escalation of antibiotics to meropenem in the setting of increasing WBC to 38.9. cc:: cc: Rosa Mckinney MD Past Medical History Past Medical History Comments PMH COMMENT: Past Medical History: None Family History: Non-contributory Surgical History: 2 C-sections, appendectomy, tubal ligation, laparoscopic cholecystectomy Social History: Smokes nicotine vape, social alcohol use, denies recreational drug use (Utox has been positive for marijuana) Current Medications: None (Source: Patient) Allergies: No known drug allergies Exam Vital Signs Temp Pulse Resp BP Pulse Ox O2 Del Method O2 Flow Rate 98.0 F 77 17 129/83 96 Room Air 4 05/22/25 12:00 05/22/25 12:00 05/22/25 12:00 05/22/25 12:00 05/22/25 12:00 05/22/25 12:00 05/20/25 00:00 Narrative Exam Physical Exam General: Awake and in no acute distress. Conversational and non-toxic appearing. HEENT: Normocephalic, atraumatic, mucous membranes moist. Heart: Regular rate and rhythm, normal S1 and S2, no murmurs. Lungs: Clear to auscultation with no wheezing or crackles. Abdomen: Soft, nondistended, nontender, positive bowel sounds. ?No guarding or rebound tenderness. Neurologic: Alert and oriented x3, no gross neurological deficit, and patient able to move all 4 extremities. Extremities: No edema. Skin: No rash or ecchymoses. Results Labs 05/22/25 04:08 05/22/25 04:08 ABG Interpretation ABG results: 05/19/25 12:58 VBG pH 7.51 VBG pCO2 32 L VBG pO2 30 VBG Base Excess 3 Quality Measures Quality Measures none Medications Home Medications and Allergies Home Medications ?Medication ?Instructions ?Recorded ?Confirmed ?Type turmeric 1 cap PO DAILY 05/18/2504/25 History Allergies Allergy/AdvReac Type Severity Reaction Status Date / Time NKA Allergy Unknown Uncoded 05/18/25 21:12 Visit Medications Discontinued Medications Acetaminophen (Acetaminophen 325 Mg Tablet) 650 mg PO Q6H PRN PRN Reason: PAIN SCALE 1-3 (mild Stop: 06/17/25 19:28 Hydrocodone Bitart/Acetaminophen (Hydrocodone/Apap 5/325 Tablet) 1 tab PO Q6HR PRN; Protocol PRN Reason: Pain 4-6 Stop: 05/23/25 19:32 Last Admin: 05/19/25 04:40 Dose: 1 tab Calcium Carbonate (Calcium Carbonate 600 Mg Tablet) 600 mg PO BID [facility] Stop: 06/21/25 08:59 Last Admin: 05/22/25 09:15 Dose: 600 mg Calcium Gluconate (Calcium Gluconate 10% Inj 1 Gm/10 Ml Vial) 1 gm IV X1 ONE Stop: 05/19/25 07:26 Last Admin: 05/21/25 07:35 Dose: Not Given Calcium Gluconate (Calcium Gluconate 10% Inj 1 Gm/10 Ml Vial) 1 gm IV X1 ONE Stop: 05/19/25 14:54 Last Admin: 05/19/25 17:46 Dose: Not Given Dexamethasone Sodium Phosphate (Dexamethasone Sod Phos Inj 10 Mg/Ml Vial) 10 mg IVP X1 ONE Stop: 05/17/25 22:05 Last Admin: 05/17/25 22:15 Dose: 10 mg Diazepam (Diazepam Inj 5 Mg/Ml Vial 2 Ml) 5 mg IVP X1 ONE Stop: 05/18/25 03:09 Last Admin: 05/18/25 03:24 Dose: 5 mg Enoxaparin Sodium (Enoxaparin Sod Inj 40 Mg/0.4 Ml Syringe) 40 mg SC QDAY [facility] Stop: 06/02/25 08:59 Last Admin: 05/22/25 09:15 Dose: 40 mg Famotidine (Famotidine Inj 10 Mg/Ml Vial 2 Ml) 40 mg IVP X1 ONE Stop: 05/19/25 14:54 Last Admin: 05/19/25 15:57 Dose: 40 mg Fentanyl Citrate (Fentanyl Cit Inj 50 Mcg/Ml Amp 2ml) 100 mcg IVP X1 ONE Stop: 05/18/25 00:03 Last Admin: 05/18/25 00:13 Dose: 100 mcg Hydromorphone HCl (Hydromorphone Inj 2 Mg/Ml Vial) 0.5 mg IVP Q3H PRN PRN Reason: pain Stop: 05/23/25 03:07 Last Admin: 05/18/25 16:55 Dose: 0.5 mg Hydromorphone HCl (Hydromorphone Inj 2 Mg/Ml Vial) 1 mg IVP NOW ONE Stop: 05/18/25 10:03 Last Admin: 05/18/25 10:12 Dose: 1 mg Hydromorphone HCl (Hydromorphone Inj 2 Mg/Ml Vial) 0.5 mg IVP Q6HR PRN PRN Reason: Pain 7-10 Stop: 05/23/25 19:28 Last Admin: 05/19/25 01:27 Dose: 0.5 mg Hydromorphone HCl (Hydromorphone Inj 2 Mg/Ml Vial) 0.5 mg IVP X1 ONE Stop: 05/18/25 21:53 Last Admin: 05/18/25 21:58 Dose: 0.5 mg Hydromorphone HCl (Hydromorphone Inj 2 Mg/Ml Vial) 1 mg IVP X1 ONE Stop: 05/19/25 02:37 Last Admin: 05/19/25 02:52 Dose: 1 mg Hydromorphone HCl (Hydromorphone Inj 2 Mg/Ml Vial) 0.5 mg IVP Q4HR PRN PRN Reason: Pain 7-10 Stop: 05/23/25 19:28 Last Admin: 05/19/25 06:37 Dose: 0.5 mg Hydromorphone HCl (Hydromorphone Inj 2 Mg/Ml Vial) 1 mg IVP Q4HR PRN PRN Reason: Pain 7-10 Stop: 05/24/25 09:19 Last Admin: 05/22/25 11:24 Dose: 1 mg Hydromorphone HCl (Hydromorphone Inj 2 Mg/Ml Vial) 1 mg IVP X1 ONE Stop: 05/19/25 09:19 Last Admin: 05/19/25 09:23 Dose: 1 mg Hydromorphone HCl (Hydromorphone Inj 2 Mg/Ml Vial) 1 mg IVP X1 ONE Stop: 05/19/25 14:20 Last Admin: 05/19/25 14:35 Dose: 1 mg Lactated Ringer's (Lactated Ringers) 1,000 mls @ 500 mls/hr IV .Q2H ONE Stop: 05/18/25 02:09 Last Infusion: 05/18/25 03:02 Dose: Infused Piperacillin/Tazobactam/Dextrose (Zosyn) 3.375 gm in 50 mls @ 100 mls/hr IV X1 ONE Stop: 05/18/25 03:38 Last Infusion: 05/18/25 03:54 Dose: Infused Lactated Ringer's (Lactated Ringers) 1,000 mls @ 125 mls/hr IV .Q8H ONE Stop: 05/18/25 11:10 Last Infusion: 05/18/25 19:24 Dose: Infused Lactated Ringer's (Lactated Ringers) 1,000 mls @ 999 mls/hr IV .Q1H1M ONE Stop: 05/18/25 19:23 Last Admin: 05/18/25 19:25 Dose: 999 mls/hr Lactated Ringer's (Lactated Ringers) 1,000 mls @ 150 mls/hr IV .Q6H40M [facility] Stop: 05/19/25 14:29 Last Infusion: 05/18/25 19:46 Dose: 0 mls/hr Piperacillin/Tazobactam/Dextrose (Zosyn) 3.375 gm in 50 mls @ 100 mls/hr IV Q6HR [facility] Stop: 05/25/25 18:23 Last Infusion: 05/19/25 21:02 Dose: Infused Lactated Ringer's (Lactated Ringers) 1,000 mls @ 135 mls/hr IV .Q7H25M [facility] Stop: 05/19/25 17:42 Last Infusion: 05/19/25 21:02 Dose: Infused Magnesium Sulfate (Magnesium Sulfate Ivpb) 4 gm in 50 mls @ 12.5 mls/hr IV X1 ONE Stop: 05/19/25 09:07 Last Infusion: 05/19/25 21:02 Dose: Infused Sodium Phosphate 30 mmol/ (Sodium Chloride) 510 mls @ 62.5 mls/hr IV X1 ONE Stop: 05/19/25 13:18 Last Admin: 05/19/25 07:10 Dose: Not Given Potassium Phosphate (Pot Phos 15 Mmol In Ns 250 Ml) 15 mmol in 250 mls @ 62.5 mls/hr IV Q4H [facility] Stop: 05/19/25 16:59 Last Infusion: 05/19/25 21:02 Dose: Infused Magnesium Sulfate (Magnesium Sulfate Ivpb) 4 gm in 50 mls @ 12.5 mls/hr IV X1 ONE Stop: 05/19/25 11:22 Last Admin: 05/21/25 07:35 Dose: Not Given Calcium Gluconate/Sodium Chloride (Calcium Gluc/Ns 1000mg Ivpb) 1,000 mg in 50 mls @ 50 mls/hr IV X1 ONE Stop: 05/19/25 08:29 Last Infusion: 05/19/25 20:59 Dose: Infused Meropenem 1,000 mg/ Sodium (Chloride) 50 mls @ 100 mls/hr IV Q8HR [facility] Stop: 05/26/25 07:44 Last Infusion: 05/21/25 06:06 Dose: Infused Lactated Ringer's (Lactated Ringers) 1,000 mls @ 150 mls/hr IV .Q6H40M [facility] Stop: 05/20/25 03:38 Last Infusion: 05/19/25 21:02 Dose: Infused Calcium Gluconate/Sodium Chloride (Calcium Gluc/Ns 1000mg Ivpb) 1,000 mg in 50 mls @ 50 mls/hr IV X1 ONE Stop: 05/19/25 15:59 Last Infusion: 05/19/25 17:46 Dose: Infused Lactated Ringer's (Lactated Ringers) 1,000 mls @ 170 mls/hr IV .Q5H53M [facility] Stop: 05/20/25 08:40 Last Infusion: 05/20/25 19:42 Dose: Infused Potassium Phosphate (Pot Phos 15 Mmol In Ns 250 Ml) 15 mmol in 250 mls @ 62.5 mls/hr IV X1 ONE Stop: 05/19/25 21:59 Last Infusion: 05/19/25 21:09 Dose: Infused Magnesium Sulfate/Dextrose (Magnesium Sulfate Ivpb) 1 gm in 100 mls @ 100 mls/hr IV X1 ONE Stop: 05/19/25 18:42 Last Infusion: 05/19/25 21:01 Dose: Infused Potassium Phosphate (Pot Phos 15 Mmol In Ns 250 Ml) 15 mmol in 250 mls @ 62.5 mls/hr IV Q4H [facility] Stop: 05/20/25 15:17 Last Infusion: 05/20/25 19:43 Dose: Infused Lactated Ringer's (Lactated Ringers) 1,000 mls @ 150 mls/hr IV .Q6H40M [facility] Stop: 05/20/25 22:38 Last Admin: 05/20/25 16:43 Dose: 150 mls/hr Potassium Phosphate (Pot Phos 15 Mmol In Ns 250 Ml) 15 mmol in 250 mls @ 62.5 mls/hr IV Q4H [facility] Stop: 05/21/25 15:40 Last Admin: 05/21/25 13:11 Dose: 62.5 mls/hr Lactated Ringer's (Lactated Ringers) 1,000 mls @ 75 mls/hr IV .[id number] ONE Stop: 05/22/25 01:06 Last Admin: 05/21/25 12:06 Dose: 75 mls/hr Potassium Phosphate (Pot Phos 15 Mmol In Ns 250 Ml) 15 mmol in 250 mls @ 62.5 mls/hr IV Q4H [facility] Stop: 05/22/25 16:07 Last Admin: 05/22/25 14:56 Dose: Not Given Magnesium Sulfate (Magnesium Sulfate Ivpb) 4 gm in 50 mls @ 12.5 mls/hr IV X1 ONE Stop: 05/22/25 12:07 Last Admin: 05/22/25 09:14 Dose: 12.5 mls/hr Lactated Ringer's (Lactated Ringers) 1,000 mls @ 75 mls/hr IV .[id number] ONE Stop: 05/22/25 22:34 Last Admin: 05/22/25 09:15 Dose: 75 mls/hr Ketamine HCl (Ketamine 50 Mg/Ml Vial 10 Ml) 9 mg IVP NOW ONE Stop: 05/18/25 12:53 Last Admin: 05/18/25 13:13 Dose: 9 mg Ketorolac Tromethamine (Ketorolac Inj 30 Mg/Ml Vial) 30 mg IVP X1 ONE Stop: 05/18/25 02:03 Last Admin: 05/18/25 02:09 Dose: 30 mg Ketorolac Tromethamine (Ketorolac Inj 30 Mg/Ml Vial) 15 mg IVP X1 ONE Stop: 05/19/25 16:47 Last Admin: 05/19/25 17:05 Dose: 15 mg Ketorolac Tromethamine (Ketorolac Inj 30 Mg/Ml Vial) 15 mg IVP Q6HR PRN PRN Reason: Pain 4-6 Stop: 05/24/25 18:49 Last Admin: 05/22/25 01:32 Dose: 15 mg Ketorolac Tromethamine (Ketorolac Inj 30 Mg/Ml Vial) 15 mg IVP X1 ONE Stop: 05/20/25 10:22 Last Admin: 05/20/25 10:32 Dose: 15 mg Ketorolac Tromethamine (Ketorolac Inj 30 Mg/Ml Vial) 15 mg IVP Q6HR PRN PRN Reason: Pain 4-6 Stop: 05/24/25 18:49 Last Admin: 05/22/25 09:28 Dose: 15 mg Levofloxacin (Levofloxacin 250 Mg Tablet) 500 mg PO QDAY [facility] Stop: 05/26/25 12:00 Last Admin: 05/22/25 09:14 Dose: 500 mg Lisinopril (Lisinopril 20 Mg Tablet) 20 mg PO QDAY [facility] Stop: 06/20/25 10:29 Last Admin: 05/22/25 09:15 Dose: 20 mg Lorazepam (Lorazepam 0.5 Mg Tablet) 1 mg PO X1 ONE Stop: 05/18/25 10:20 Last Admin: 05/18/25 10:41 Dose: 1 mg Melatonin (Melatonin 3 Mg Tablet) 3 mg PO HS [facility] Stop: 06/17/25 20:59 Metronidazole (Metronidazole 250 Mg Tablet) 500 mg PO TID [facility] Stop: 05/26/25 12:00 Last Admin: 05/22/25 13:37 Dose: 500 mg Morphine Sulfate (Morphine Sulf Inj 10 Mg/Ml Vial) 5 mg IVP X1 ONE Stop: 05/17/25 22:05 Last Admin: 05/17/25 22:16 Dose: 5 mg Ondansetron HCl (Ondansetron Inj 2 Mg/Ml Inj 2 Ml) 4 mg IV X1 ONE; Protocol Stop: 05/17/25 22:05 Last Admin: 05/17/25 22:15 Dose: 4 mg Ondansetron HCl (Ondansetron Inj 2 Mg/Ml Inj 2 Ml) 4 mg IV Q4HR PRN; Protocol PRN Reason: NAUSEA OR VOMITING Stop: 06/17/25 02:43 Last Admin: 05/18/25 13:53 Dose: 4 mg Assessment & Plan Plan 44-year-old female with 2 C-sections, appendectomy, tubal ligation, and recent cholecystectomy who presented to the ED on 05/18/2025 with abdominal pain. Patient had laparoscopic cholecystectomy with general surgery one day prior on 05/17 and states that she woke up that evening with fever/chills and severe epigastric abdominal pain radiating to her back, admitted for acute pancreatitis. ID was consulted due to escalation of antibiotics to meropenem given WBC increased to 38k. #Acute non-necrotizing gallstone pancreatitis On admission, patient presented with severe abdominal pain, elevated lipase, tachypneia, and WBC which peaked at 38.9 on 05/19. Patient is feeling significantly better today. NG tube remains in place however due to abdominal distention. Blood cultures are both negative thus far. -Discontinue meropenem -Started levofloxacin 500 mg qday PO -Started metronidazole 500 mg TID PO -Continue NG tube to intermittent suction Patient plan of care was discussed with the attending physician, Dr. Zavala. Lakisha Pitts, PGY-3
--- NOTE | 2025-05-21 12:04 | ESPR_ITS ---
Subjective Subjective Interval history: abd issues noted. no retained stones noted. not comfortable going home today. Exam Vital Signs Temp Pulse Resp BP Pulse Ox O2 Del Method O2 Flow Rate 97.8 F 93 16 156/93 H 92 L Room Air 4 05/21/25 07:58 05/21/25 07:58 05/21/25 07:58 05/21/25 07:58 05/21/25 07:58 05/21/25 07:58 05/20/25 00:00 Narrative Exam benign abd noted. Objective - Internal Medicine Labs 05/21/25 04:59 05/21/25 04:59 Labs: Laboratory Results - last 24 hr 05/21/25 04:59 WBC 23.3 H D RBC 3.39 L Hgb 10.4 L Hct 30.4 L MCV 90 MCH 30.7 MCHC 34.2 RDW Std Deviation 47.9 H Plt Count 232 Neut % (Auto) 84 H Lymph % (Auto) 5 L [place] % (Auto) 10 Eos % (Auto) 0 Baso % (Auto) 0 Neut # (Auto) 19.5 H Lymph # (Auto) 1.1 [place] # (Auto) 2.3 H Eos # (Auto) 0.1 Baso # (Auto) 0.1 Immature Gran # (Auto) 0.29 H Absolute Nucleated RBC 0.00 Immature Gran % 1 H Nucleated RBC % 0 Sodium 142 Potassium 3.3 L Chloride 102 Carbon Dioxide 27.6 Anion Gap 12 BUN 8 L Creatinine 0.4 L Estim Creat Clear Calc 108.2 eGFR > 60 BUN/Creatinine Ratio 20 Glucose 111 H Calculated Osmolality 282 Calcium 8.4 Corrected Calcium 8.7 Phosphorus 1.4 L Magnesium 2.0 Total Bilirubin 0.9 AST 24 ALT 158 H Alkaline Phosphatase 95 Total Protein 5.9 Albumin 3.6 Globulin 2.3 Albumin/Globulin Ratio 1.6 Amylase 62 Lipase 25 D ABG Interpretation ABG results: 05/19/25 12:58 VBG pH 7.51 VBG pCO2 32 L VBG pO2 30 VBG Base Excess 3 Assessment & Plan A&P Narrative Pain abdomen secondary to acute pancreatitis non necrotizing by serial imaging Plan Continue antibiotics for 7d total changed to po levaquin and flagyl. NGT to intermittent suction PAPI Time Spent With Patient Time: Total time spent is greater than 50% in coordination of care (as documented) at patient's floor/unit and/or counseling patient:
[2025-05-21] MEDS: RINGERS LACTATED 1000 ML 1,000 ML 75 ML IV (12:06)
--- NOTE | 2025-05-21 13:39 | ESCONSULT_ITS ---
RE: JUVENTINO WHITMAN : 1980 DATE OF CONSULTATION: 05/21/2025 REFERRING PHYSICIAN: Rosa Mckinney MD REASON FOR CONSULTATION: Pancreatitis and recent cholecystectomy. HISTORY OF PRESENT ILLNESS: The patient is without known gallstones. The patient has had abdominal pain for several days. She had a complicated course following her cholecystectomy last week on , which apparently occurred after a gallbladder attack while on a cruise in [place]. She returned home and went to work for a couple of days and before coming back here about a week ago for admission for gallbladder surgery. She had a cholecystectomy done last . PAST MEDICAL HISTORY: Include only her pregnancies. She is G2, P2 with 2 C- sections. PAST SURGICAL HISTORY: She had prior tubal ligation. ALLERGIES: NONE NOTED. IMMUNIZATIONS: Last tetanus is not known. She does not have flu shot every year. She has had 3 COVID vaccines and has had pneumococcal vaccination. FAMILY HISTORY: Positive for coronary artery disease in some paternal relatives. Maternal grandfather had lupus and other grandparents had diabetes. SOCIAL HISTORY: I did not ask her about sexual history. 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 PHYSICAL EXAMINATION: On exam, she complains of abdominal distention that she did not have a great bowel movement following her enema. She has a benign abdomen though. She does not require oxygen. RECOMMENDATIONS: So oral therapy is very reasonable. She has been afebrile this entire time and there are no positive cultures. I will check on her again on Wednesday if she remains. If she goes home, I have no objections. DT: 12:14:16 TT: 13:11:00 Ref: [id number] - TID: [id number] MTDD
--- NOTE | 2025-05-21 17:54 | PC.NURSE ---
Pt and belongings transported to room 365. No signs of distress. Ongoing pain/discomfort still present. Family at bedside. Care endorsed to Luara LESLIE who arrived at bedside. All questions answered.
--- NOTE | 2025-05-21 20:16 | ESPR_ITS ---
Documentation for date of: 05/21/25 Subjective Subjective Interval history: Patient evaluated LFTs trending downward Improving leukocytosis NGT is out Exam Vital Signs Temp Pulse Resp BP Pulse Ox O2 Del Method O2 Flow Rate 97.8 F 86 19 144/98 H 95 Room Air 4 05/21/25 16:00 05/21/25 16:00 05/21/25 16:00 05/21/25 16:00 05/21/25 16:00 05/21/25 16:00 05/20/25 00:00 Objective Labs 05/21/25 04:59 05/21/25 04:59 Labs: Laboratory Results - last 24 hr 05/21/25 04:59 WBC 23.3 H D RBC 3.39 L Hgb 10.4 L Hct 30.4 L MCV 90 MCH 30.7 MCHC 34.2 RDW Std Deviation 47.9 H Plt Count 232 Neut % (Auto) 84 H Lymph % (Auto) 5 L [place] % (Auto) 10 Eos % (Auto) 0 Baso % (Auto) 0 Neut # (Auto) 19.5 H Lymph # (Auto) 1.1 [place] # (Auto) 2.3 H Eos # (Auto) 0.1 Baso # (Auto) 0.1 Immature Gran # (Auto) 0.29 H Absolute Nucleated RBC 0.00 Immature Gran % 1 H Nucleated RBC % 0 Sodium 142 Potassium 3.3 L Chloride 102 Carbon Dioxide 27.6 Anion Gap 12 BUN 8 L Creatinine 0.4 L Estim Creat Clear Calc 108.2 eGFR > 60 BUN/Creatinine Ratio 20 Glucose 111 H Calculated Osmolality 282 Calcium 8.4 Corrected Calcium 8.7 Phosphorus 1.4 L Magnesium 2.0 Total Bilirubin 0.9 AST 24 ALT 158 H Alkaline Phosphatase 95 Total Protein 5.9 Albumin 3.6 Globulin 2.3 Albumin/Globulin Ratio 1.6 Amylase 62 Lipase 25 D Impressions Impression: Resolving acute pancreatitis Advance diet as tolerated continue to monitor CBC and LFTs ABG Interpretation ABG results: 05/19/25 12:58 VBG pH 7.51 VBG pCO2 32 L VBG pO2 30 VBG Base Excess 3 Assessment & Plan A&P Narrative Pain abdomen secondary to acute pancreatitis non necrotizing by serial imaging Plan Continue antibiotics for 7d total changed to po levaquin and flagyl. NGT to intermittent suction PAPI Time Spent With Patient Time: Total time spent is greater than 50% in coordination of care (as documented) at patient's floor/unit and/or counseling patient:
[2025-05-22] VITALS: BP 131/78; PULSE 84; RESP 17; TEMP 36.4; O2SAT 97
[2025-05-22] MEDS: KETOROLAC INJ 30 MG/ML VIAL 15 MG IVP ×2 (01:32→09:28)
[2025-05-22 04:00] VITALS: BP 122/77; PULSE 84; RESP 17; TEMP 36.1; O2SAT 97
[2025-05-22 06:05] LABS: Basophils # (Auto) 0.1 Thou/mm3 (0.0-0.2); Basophils % (Auto) 0 % (0-2.5); Eosinophils # (Auto) 0.4 Thou/mm3 (0.0-0.5); Eosinophils % (Auto) 2 % (0-10); Hematocrit 28.2 % (36.0-46.0); Hemoglobin 9.8 g/dL (12.0-16.0); Immature Granulocytes Auto 0.24 Thou/mm3 (0.00-0.00); Lymphocytes # (Auto) 1.5 Thou/mm3 (1.0-4.8); Lymphocytes % (Auto) 9 % (10-50); Mean Corpuscular HGB Conc 34.8 g/dl (31.0-37.0); Mean Corpuscular Hemoglobin 31.0 pg (25.0-35.0); Mean Corpuscular Volume 89 fL (80-100); Monocytes # (Auto) 2.0 Thou/mm3 (0.0-0.8); Monocytes % (Auto) 12 % (0-12); Neutrophils # (Auto) 12.2 Thou/mm3 (1.8-7.7); Neutrophils % (Auto) 75 % (37-80); Nucleated Red Blood Cell # 0.00 Thou/mm3 (0.00-0.00); Nucleated Red Blood Cell % 0 /100 WBC (0); Platelet Count 250 Thou/mm3 (140-440); RDW Standard Deviation 47.8 fL (36.4-46.3); Red Blood Count 3.16 Miln/mm3 (4.00-5.20); White Blood Count 16.3 Thou/mm3 (3.6-11.0)
[2025-05-22 06:23] LABS: Alanine Aminotransferase 112 U/L (10-49); Albumin, Serum 3.2 gm/dL (3.5-5.0); Albumin/Globulin Ratio 1.5 (1.2-2.2); Alkaline Phosphatase 77 U/L (46-116); Anion Gap 9 (7-16); Aspartate Amino Transferase 25 U/L (0-34); BUN/Creatinine Ratio 18 Ratio (12-20); Bilirubin,Total 0.8 mg/dL (0.3-1.2); Blood Urea Nitrogen 7 mg/dL (9-23); Calcium 7.7 mg/dL (8.3-10.6); Calcium (Corrected) 8.3 mg/dL (8.5-10.1); Carbon Dioxide 29.6 mMol/L (20.0-31.0); Chloride 100 mMol/L (98-107); Creatinine (Component) 0.4 mg/dL (0.6-1.3); Estimated Creatinine Clearance 189.5 mL/min (>60); Globulin 2.1 gm/dL (2.3-3.5); Glucose 113 mg/dL (74-106); Magnesium 1.9 mg/dL (1.6-2.6); Osmolality,Calculated 276 (275-295); Phosphorous 1.9 mg/dL (2.4-5.1); Potassium 3.1 mMol/L (3.4-5.1); Sodium 139 mMol/L (136-145); Total Protein 5.3 gm/dL (5.7-8.2); eGFR > 60 See Note
[2025-05-22 06:33] LABS: Hepatitis C Antibody Non Reactive (Non React)
[2025-05-22 08:00] VITALS: BP 135/81; PULSE 83; RESP 18; TEMP 36.3; O2SAT 98
[2025-05-22] MEDS: POT PHOS 15 mMol in NS 250 ML 15 MMOL/250 ML BAG 62.5 MMOL IV (09:14)
[2025-05-22] MEDS: LEVOFLOXACIN 250 MG TABLET 500 MG PO (09:14)
[2025-05-22] MEDS: Magnesium Sulfate 4 GM Ivpb 4 GM/50 ML BAG IV (09:14)
[2025-05-22 09:15] VITALS: BP 135/81; PULSE 83
[2025-05-22] MEDS: ENOXAPARIN SOD INJ 40 MG/0.4 ML SYRINGE SC (09:15)
[2025-05-22] MEDS: RINGERS LACTATED 1000 ML 1,000 ML 75 ML IV (09:15)
[2025-05-22] MEDS: CALCIUM CARBONATE 600 MG TABLET PO (09:15)
--- NOTE | 2025-05-22 11:23 | PC.NURSE ---
discharge pending diet advancement
[2025-05-22] MEDS: HYDROmorphone INJ 2 MG/ML VIAL 1 MG IVP (11:24)
--- NOTE | 2025-05-22 11:27 | PD.SURPROG ---
Documentation for date of: 05/22/25 Subjective Subjective Narrative: Patient is feeling much better. Her abdominal pain is improved Exam Vital Signs Temp Pulse Resp BP Pulse Ox O2 Del Method O2 Flow Rate 97.4 F 83 18 135/81 H 98 Room Air 4 05/22/25 08:00 05/22/25 09:15 05/22/25 08:00 05/22/25 09:15 05/22/25 08:00 05/22/25 08:00 05/20/25 00:00 Her vital signs are normal Routine Abdominal Exam Comments: Abdominal examination shows satisfactory healing of the incision Results Results: Laboratory Laboratory Narrative: Laboratory results show improving WBC Assessment & Plan Assessment Additional comments: Impression: Patient seems to be recovering satisfactorily from acute pancreatitis Plan Plan: Patient may be discharged today or tomorrow with pain medication. I will see her in my office on next Wednesday, 01 June.
[2025-05-22 12:00] VITALS: BP 129/83; PULSE 77; RESP 17; TEMP 36.7; O2SAT 96
[2025-05-22 13:32] LABS: HIV (1&2) Antibody Rapid Non-Reactive
--- NOTE | 2025-05-22 13:41 | ESDS_ITS ---
<Statement entered by Singh Gould MD - 05/26/25 12:38> I reviewed above note and agree with findings and plans. I have also personally examined the patient with medicine team and went over assessment and plan with medical team including campus recruiting intern and resident physician. <Statement entered by Vladimir Andersen MD - 05/22/25 15:19> I discussed and supervised with the campus recruiting intern physician who took care of this patient. I personally saw and examined the patient. I agree with most of the assessment and plan. Disclaimer: Despite multiple revisions, due to the dictation software being used, the document bellow may not be free of grammatical errors including phonetic/typographic errors. However, this does not deter from our commitment to providing health care in the patient's best interest in mind. Plan of care discussed with attending Physician Dr. Luis Fernando Andersen MD PGY-3 Planned Discharge Date 05/22/25 DS: Providers Provider Date of admission: 05/18/25 19:37 Primary care physician: Physician No Primary/Family Admitting Provider: Rosa Mckinney MD Attending Provider on Admission: Rosa Mckinney MD Consults: 05/19/25 07:47 Consult to Infectious Diseases Stat Comment: MEROPENEM Consulting Provider: Christiano Zavala 05/19/25 08:44 Consult to Gastroenterology Routine Comment: Consulting Provider: Andres Dugan Consult to General Surgery Routine Comment: Consulting Provider: Aren Wood 05/19/25 09:40 Consult to [employer] Routine Comment: Consulting Provider: Duran Day I 05/19/25 15:00 Consult to Gastroenterology Routine Comment: Dr Camarena want you to asses patient and follow up Consulting Provider: Carlota Marie Attending Provider on DC: Singh Gould MD Discharging Provider: Akira Brown DO Anticipated date of discharge: 05/22/25 DS: Diagnosis Problem List Completed Was Problem List Reviewed/Reconciled?: Yes Hospital Course Hospital Course Hospital course: Ms. Melvin is a 44F with histroy of 2 C-sections, appendectomy, and tubal ligation admitted on 05/18/25 for acute pancreatitis right after her lap shemar on 05/17/25. Pt reported 10/10 pain to epigastric region the night after the surgery, which prompted her to seek care at the ED. In the ED, pt was found to have elevated WBC, amylase, and lipase. CT abdomen pelvis showed acute pancreatitis, MRCP showed mild postop free fluid in the abdomen surrounding the pancreas but no common hepatic or common bile duct stones, gallbladder nuclear scan no common bile duct obstruction and no biliary leak. She was given meropenem due to her consistently elevated WBC, and switched to levaquin and flagyl on day 5 of her admission. Electrolytes were repleted as needed. Multimod al pain management was provided. Pt reported bowel movement on last day of her admission, and tolerated regular diet well. Amylase and lipase were WNL on last day of admission. Pt is medically and physically stable for discharge. Diagnosis #Post-op ileus - resolved #Acute pancreatitis - resolved #Hypertension #Lactic acidosis, likely type B - resolved. #Sinus Tachycardia - resolved #Marijuana use disorder #Nicotine dependence Discharge Plan: You have been started on Levofloxacin 500 mg once daily for 3 more days, Flagyl 500 mg 3 times daily for 3 more days to complete course Take lisinopril 20 mg once daily You are being given 7 tabs of Cypress 5 as needed for pain, up to 3 in one day MAX Continue taking all home medication as prescribed Follow-up with the PCP as outpatient within a week In case of emergency, call 911 or come back to the ED Case discussed with my senior resident Dr. Andersen Case discussed with my attending Dr. Luis Fernando Brown, DO PGY 1 Time Spent with Patient Time attestation: Total time spent providing and/or coordinating discharge services: Time spent: Greater than 30 minutes Exam Vital Signs Temp Pulse Resp BP Pulse Ox O2 Del Method O2 Flow Rate 98.0 F 77 17 129/83 96 Room Air 4 05/22/25 12:00 05/22/25 12:00 05/22/25 12:05/22/25 12:00 05/22/25 12:05/22/25 12:05/20/25 00:00 Narrative Exam General: Well appearing, well nourished, in no distress. Oriented x 3, normal mood and affect . Ambulating without difficulty. Skin: Good turgor. Surgical sites and port sites clean, dry and intact. Heart: No cardiomegaly or thrills; regular rate and rhythm, no murmur or gallop Lungs: Clear to auscultation and percussion. No rales, wheeze, or rhonchi Abdomen: Normal BM today. Improvement of pain from yesterday, no guarding, non distended. Back: Spine normal without deformity or tenderness, no CVA tenderness Extremities: No amputations or deformities, cyanosis, edema or varicosities, peripheral pulses intact Musculoskeletal: Normal gait and station. No misalignment, asymmetry, crepitation, defects, tenderness, masses, effusions, decreased range of motion, instability, atrophy or abnormal strength or tone in the head, neck, spine, ribs, pelvis or extremities. Discharge Plan Plan Patient Disposition: HOME (Self Care) Patient condition on transfer: Stable Care Plan Goals: You have been started on Levofloxacin 500 mg once daily for 3 more days, Flagyl 500 mg 3 times daily for 3 more days to complete course Take lisinopril 20 mg once daily You are being given 7 tabs of Cypress 5 as needed for pain, up to 3 in one day MAX Continue taking all home medication as prescribed Follow-up with the PCP as outpatient within a week In case of emergency, call 911 or come back to the ED Prescriptions/Referrals Prescriptions/Med Rec: New lisinopril 20 mg Tablet 20 mg PO QDAY 30 Days Qty: 30 0RF levofloxacin 500 mg tablet 500 mg PO QDAY 3 Days Qty: 3 0RF metronidazole 500 mg tablet 500 mg PO TID 3 Days Qty: 9 0RF hydrocodone-acetaminophen 5-325 mg tablet 1 tab PO Q8H MDD 3 PRN (Reason: pain) Qty: 7 0RF Continued turmeric 1 cap PO DAILY Patient Comments: 2250mg capsule. Over the counter(from [employer] Discontinued Zantac 75 75 MG tablet 100 mg PO PRN PRN (Reason: GERD) Qty: 0 Hydrocodone/Acetaminophen * (NORCO 7.5/325 *) 1 TAB tablet 1 tab PO Q6H PRN (Reason: ABDOMINAL PAIN) Qty: 40 0RF hydrocodone-acetaminophen 5-325 mg tablet 1 tab PO Q6H MDD 4 Qty: 20 0RF Referrals: No Primary/Family,Physician [Primary Care Provider] - Patient/Caregiver Discharge Instructions Print Language: Montenegrin Stand Alone Forms: Melanie Award Info., Patient Portal Info Letter Discharge Order Discharge Orders: Discharge (Routine); Ordered 05/22/25 Ordered By: Tae Yeh Quality Discharge Quality Measures none
[2025-05-24 06:34] LABS: ANA Screen, IFA NEGATIVE (NEGATIVE)
== END 2025-05-22 15:15 | disposition home or self-care (01) | DRG 438 ==
LOC: SERX 05-18 18:30 → SERHOLD 05-18 19:38 → S3NX 05-18 20:42 → S2NX 05-19 11:03 → S3NX 05-21 17:48
PROVIDERS: Internal Medicine Infectious Disease; Physician Assistant; Specialist; Student in an Organized Health Care Education/Training Program; Admitting Provider Student in an Organized Health Care Education/Training Program; Emergency Provider Emergency Medicine; Visit Provider Student in an Organized Health Care Education/Training Program
DX: K85.90 Acute pancreatitis without necrosis or infection, unspecified (principal); J18.9 Pneumonia, unspecified organism; R65.10 Systemic inflammatory response syndrome (SIRS) of non-infectious origin without acute organ dysfunction; E87.1 Hypo-osmolality and hyponatremia; E87.20 Acidosis, unspecified; K56.7 Ileus, unspecified; J91.8 Pleural effusion in other conditions classified elsewhere; K91.89 Other postprocedural complications and disorders of digestive system; E83.42 Hypomagnesemia; E83.51 Hypocalcemia; E83.39 Other disorders of phosphorus metabolism; I10 Essential (primary) hypertension; F12.10 Cannabis abuse, uncomplicated; E66.9 Obesity, unspecified; Z68.39 Body mass index [BMI] 39.0-39.9, adult; Z87.19 Personal history of other diseases of the digestive system; F17.290 Nicotine dependence, other tobacco product, uncomplicated; Z90.49 Acquired absence of other specified parts of digestive tract; Z98.51 Tubal ligation status; Z79.899 Other long term (current) drug therapy; Y83.6 Removal of other organ (partial) (total) as the cause of abnormal reaction of the patient, or of later complication, without mention of misadventure at the time of the procedure
CPT/HCPCS: 36415; 71045; 74018; 74177; 74181; 78227; 80053; 80061; 82150; 82803; 83036; 83605; 83690; 83735; 84100; 84145; 85025; 85610; 85730; 86038; 86140; 86703; 86803; 87040; 93005; 96361; 96365; 96375; 96376; 99284; A4649; A9537; J0613; J1100; J1171; J1650; J1885; J2185; J2270; J2405; J2543; J3010; J3360; J3475; J3490; J7050; J7120; J7999; Q9967; A9270

== ENCOUNTER → 2025-05-30 | Outpatient (CLI) | payer BC, SELFPAY ==
[2025-05-30 16:32] LABS: Basophils # (Auto) 0.1 Thou/mm3 (0.0-0.2); Basophils % (Auto) 1 % (0-2.5); Eosinophils # (Auto) 0.4 Thou/mm3 (0.0-0.5); Eosinophils % (Auto) 4 % (0-10); Hematocrit 35.6 % (36.0-46.0); Hemoglobin 11.9 g/dL (12.0-16.0); Immature Granulocytes Auto 0.16 Thou/mm3 (0.00-0.00); Lymphocytes # (Auto) 2.3 Thou/mm3 (1.0-4.8); Lymphocytes % (Auto) 21 % (10-50); Mean Corpuscular HGB Conc 33.4 g/dl (31.0-37.0); Mean Corpuscular Hemoglobin 30.7 pg (25.0-35.0); Mean Corpuscular Volume 92 fL (80-100); Monocytes # (Auto) 0.8 Thou/mm3 (0.0-0.8); Monocytes % (Auto) 8 % (0-12); Neutrophils # (Auto) 7.2 Thou/mm3 (1.8-7.7); Neutrophils % (Auto) 66 % (37-80); Nucleated Red Blood Cell # 0.00 Thou/mm3 (0.00-0.00); Nucleated Red Blood Cell % 0 /100 WBC (0); Platelet Count 394 Thou/mm3 (140-440); RDW Standard Deviation 49.8 fL (36.4-46.3); Red Blood Count 3.88 Miln/mm3 (4.00-5.20); White Blood Count 10.9 Thou/mm3 (3.6-11.0)
[2025-05-30 16:50] LABS: Alanine Aminotransferase 38 U/L (10-49); Albumin, Serum 3.9 gm/dL (3.5-5.0); Alkaline Phosphatase 72 U/L (46-116); Amylase 65 U/L (30-118); Anion Gap 10 (7-16); Aspartate Amino Transferase 19 U/L (0-34); BUN/Creatinine Ratio 15 Ratio (12-20); Bilirubin,Direct 0.1 mg/dL (0.0-0.3); Bilirubin,Total 0.3 mg/dL (0.3-1.2); Blood Urea Nitrogen 9 mg/dL (9-23); Calcium 8.9 mg/dL (8.3-10.6); Carbon Dioxide 26.4 mMol/L (20.0-31.0); Chloride 107 mMol/L (98-107); Creatinine (Component) 0.6 mg/dL (0.6-1.3); Free T4 (Free Thyroxine) 1.41 ng/dL (0.89-1.76); Glucose 110 mg/dL (74-106); Lipase 36 U/L (12-53); Osmolality,Calculated 284 (275-295); Phosphorous 3.1 mg/dL (2.4-5.1); Potassium 4.1 mMol/L (3.4-5.1); Sodium 143 mMol/L (136-145); Thyroid Stimulating Hormone 0.64 uIU/mL (0.55-4.78); Total Protein 6.4 gm/dL (5.7-8.2); eGFR > 60 See Note
== END | disposition home or self-care (01) ==
LOC: COPL 15:19
PROVIDERS: PCP Internal Medicine; Referring Provider Internal Medicine; Visit Provider Internal Medicine
DX: Z00.00 Encounter for general adult medical examination without abnormal findings (principal)
CPT/HCPCS: 36415; 80048; 80069; 80076; 82150; 83690; 84100; 84439; 84443; 85025